=== PATIENT | male | born 1950 | race Caucasian/White ===

== ENCOUNTER → 2020-11-18 13:40 | Outpatient (BNVA) | payer MEDICARE, SELFPAY | PROVIDERS: PCP Internal Medicine; Visit Provider Internal Medicine Cardiovascular Disease | DX: I48.0 Paroxysmal atrial fibrillation (principal); I10 Essential (primary) hypertension | CPT/HCPCS: Q3014 ==

== ENCOUNTER 2021-02-04 15:43 | Outpatient (REF) | payer MEDICARE, SELFPAY ==
[2021-02-04 16:42] LABS: MANUAL DIFF FLAG NO
[2021-02-04 16:51] LABS: Basophils Percent Auto 0.3 % (0-2); Eosinophils Percent Auto 0.5 % (0-4); Hematocrit 44.9 % (42-52); Hemoglobin 15.6 g/dl (14.0-18.0); Imm Gran Abs Auto 0.08 X10*3/uL (0.00-0.03); Lymphocytes Absolute Auto 0.8 X10*3/uL (1.2-4.9); Lymphocytes Percent Auto 9.9 % (20-40); Mean Corpuscular HGB Conc 34.7 g/dl (31.0-36.0); Mean Corpuscular Hemoglobin 33.1 pg (27.0-33.0); Mean Corpuscular Volume 95.3 fL (80-98); Mean Platelet Volume 10.2 fL (9.4-12.4); Monocytes Percent Auto 12.3 % (2-11); Platelet Count 215 X10*3/uL (160-400); Red Blood Count 4.71 X10*6/uL (4.60-5.80); Red Cell Distribution Width 12.6 % (11.0-16.0); White Blood Count 7.9 X10*3/uL (4.8-10.8)
[2021-02-04 17:19] LABS: Alanine Aminotransferase 10 U/L (0-40); Albumin Level 3.9 g/dL (3.5-5.0); Alkaline Phosphatase 101 U/L (39-117); Anion Gap 14 (12-20); Aspartate Amino Transferase 13 U/L (5-37); Bilirubin Total 1.3 mg/dL (0.0-1.0); Blood Urea Nitrogen 24 mg/dL (9-16); Calcium 9.4 mg/dL (8.4-10.2); Carbon Dioxide 23 mmol/L (22-29); Chloride 98 mmol/L (96-108); Cholesterol 98 mg/dL; Estimated Glomerular Filt Rate > 60; Glucose Random 118 mg/dL (60-115); HDL Cholesterol 32 mg/dL; LDL Cholesterol Calculated 47 mg/dl; Potassium 4.1 mmol/L (3.3-5.1); Sodium 131 mmol/L (135-145); Total Protein 6.8 g/dL (6.5-8.0); Triglycerides 95 mg/dL
[2021-02-04 17:33] LABS: T4 Thyroxine 5.6 ug/dL (4.5-12.0); Thyroid Stimulating Hormone 1.11 uIU/mL (0.32-4.0); Vitamin D 25-OH Total 14.9 ng/mL (>30)
[2021-02-04 17:45] LABS: Folate 14.5 ng/mL (> or = 4.0); Vitamin B12 471 pg/mL (200-900)
== END 2021-02-04 15:44 | disposition home or self-care (01) ==
LOC: HO.LAB 15:43
PROVIDERS: PCP Internal Medicine; Visit Provider Internal Medicine
DX: E11.65 Type 2 diabetes mellitus with hyperglycemia (principal); I10 Essential (primary) hypertension; I48.91 Unspecified atrial fibrillation; E78.00 Pure hypercholesterolemia, unspecified; E66.3 Overweight; Z72.0 Tobacco use
CPT/HCPCS: 36415; 80053; 80061; 82306; 82607; 82746; 84436; 84443; 85025

== ENCOUNTER 2021-04-23 14:19 | Emergency (ER) | payer MEDICARE, SELFPAY ==
[2021-04-23] VITALS (14 sets, daily range): BP systolic 114–148; BP diastolic 76–105; PULSE 85–140; RESP 20–36; TEMP 36.5–36.7; O2SAT 70–100; BMI 23.9
--- NOTE | ~2021-04-23 | CT_ITS ---
EXAMINATION: CT HEAD WITHOUT CONTRAST CLINICAL INFORMATION: Frequent falls, weakness. COMPARISON: CT head noncontrast 12/01/2011 TECHNIQUE: Contiguous axial imaging was performed from the skull base to vertex without intravenous administration of contrast. Additional 2-D coronal and sagittal reformatted images are generated on the CT workstation and uploaded to PACS. This CT examination was performed using dose optimization techniques as appropriate, variously including the following: *Automated exposure control *Adjustment of mA and/or kV according to patient size (this includes techniques or standardized protocols for targeted exams where dose is matched to indication/reason for exam; i.e. extremities or head) *Use of iterative reconstruction technique DLP: 661 mGy-cm FINDINGS: There is no intracranial hemorrhage, hematoma, or extra-axial fluid collection. The ventricles are normal in size. There is no hydrocephalus, edema, or mass effect. There is moderate periventricular white matter gliosis consistent with small vessel ischemic changes. There is moderate generalized atrophic changes with prominence of the cortical sulci and fissures and cisterns. There is no visible acute territorial infarct or mass lesion. The calvarium appears intact. There is no pneumocephalus or orbital emphysema. The visualized sinuses and middle ears and mastoid air cells show no significant mucosal thickening. There are no air-fluid levels. CT/CT head/brain wo con IMPRESSION: 1. No acute intracranial abnormality. 2. Moderate generalized atrophic changes and periventricular white matter gliosis consistent with small vessel ischemic change.
--- NOTE | ~2021-04-23 | XR_ITS ---
EXAMINATION: XR CHEST CLINICAL INFORMATION: SOB. COMPARISON: None TECHNIQUE: Frontal view of the chest was obtained. FINDINGS: There is moderate opacity seen in left lung base from underlying left pleural effusion and atelectasis. There is minimal left apical pleural thickening. Linear stranding is seen in left upper lobe likely chronic scarring. The right lung is expanded and clear. Heart size is probably normal. Pulmonary vascularity is normal. Moderate spondylosis seen in dorsal spine. XR/XR chest 1V IMPRESSION: Moderate opacity seen in left lung base likely effusion with underlying atelectasis. Minimal left apical pleural thickening seen. There is likely left upper lobe scarring as well. The right lung remains clear.
--- NOTE | ~2021-04-23 | CT_ITS ---
EXAMINATION: CT CHEST WITHOUT CONTRAST CLINICAL INFORMATION: Shortness of breath. Lung opacity. COMPARISON: Chest x-ray 04/23/2021 TECHNIQUE: Multidetector volumetric CT imaging of the chest was done. Axial MIP volume rendering provided. Sagittal and coronal reformatted images were obtained. This CT examination was performed using dose optimization techniques as appropriate, variously including the following: *Automated exposure control *Adjustment of mA and/or kV according to patient size (this includes techniques or standardized protocols for targeted exams where dose is matched to indication/reason for exam; i.e. extremities or head) *Use of iterative reconstruction technique DLP: 300 mGy-cm FINDINGS: LUNGS: There is atelectasis/consolidation at the left lung base with overall decreased on the left hemithorax compared to the right. There is a coarse calcification associated with the atelectatic segment of the left lower lobe. Swirling of bronchi suggesting rounded atelectasis. The right lung is normally aerated. The central bronchial airways are open. Lung nodules: Right lun. Right upper lobe irregular 6 mm lung nodule axial image 110/621 series 9 MEDIASTINUM: No mediastinal mass or significant lymphadenopathy. The heart size is normal. Moderate volume of coronary calcifications. Moderate volume of calcifications of the thoracic aorta. No aneurysm of aorta. The thyroid is normal. PLEURA: There is a large volume left pleural effusion. There is no right-sided pleural effusion. There is no pneumothorax. AXILLA: No lymphadenopathy. UPPER ABDOMEN: Multiple cysts in the right kidney. There is a 1 mm nonobstructive stone in the upper pole the right kidney. The kidneys are only partially imaged however. No focal lesions in the visualized portions of liver, spleen or the adrenal glands. OSSEOUS STRUCTURES: Multilevel degenerative spondylosis spine. CT/CT chest wo con IMPRESSION: 1. Atelectasis/consolidation at the left lung base. 2. Large volume right pleural effusion. 3. 6 mm irregular nodule right upper lobe. Consider follow-up CAT scan in 6 months. 2017 Fleischner Society Recommendations for Lung Nodule(s): Follow-Up based on size (average of long- and short-axis diameters). Use most suspicious nodule for followup. Single Solid lung nodule 6-8 mm: In a low-risk patient, recommend a non-contrast Chest CT at 6-12 months, then consider an additional non-contrast Chest CT at 18-24 months. In a high-risk patient, recommend a non-contrast Chest CT at 6-12 months, then another non-contrast Chest CT at 18-24 months. These guidelines do not apply to patients younger than 35 years, immunocompromised patients, and patients with cancer. F/u in patients with significant comorbidities as clinically warranted. For lung cancer screening, adhere to Lung-RADS guidelines. Reference: Radiology. 2017 Az; 284(1):228-243
--- NOTE | 2021-04-23 14:50 | ECG_ITS ---
Test Reason : FALL Blood Pressure : / mmHG Vent. Rate : 130 BPM Atrial Rate : 468 BPM P-R Int : 000 ms QRS Dur : 078 ms QT Int : 286 ms P-R-T Axes : 000 017 220 degrees QTc Int : 420 ms Atrial fibrillation with rapid ventricular response Nonspecific T wave changes Abnormal ECG When compared with ECG of 02-DEC-2011 19:33, ST no longer depressed in Anterior leads Nonspecific T wave abnormality now evident in Lateral leads Referred By: Ally Avendano Electronically Signed By:Jose Luis Bates
--- NOTE | 2021-04-23 15:10 | PHA.MEDREC ---
Pharmacy Consult ? Medication Reconciliation Pharmacy has completed the medication reconciliation.
--- NOTE | 2021-04-23 15:35 | ED.GENADULT ---
HPI - General Adult General Chief complaint: Fall <NIRMAL Valdez - Last Filed: 04/23/21 21:43> Stated complaint: WEAKNESS W/ FALL <NIRMAL Valdez - Last Filed: 04/23/21 21:43> Time Seen by Provider: 04/23/21 14:39 <NIRMAL Valdez - Last Filed: 04/23/21 21:43> Source: patient and EMS <NIRMAL Valdez - Last Filed: 04/23/21 21:43> Mode of arrival: EMS <NIRMAL Valdez - Last Filed: 04/23/21 21:43> History of Present Illness HPI narrative: 70-year-old male with past medical history of ETOH abuse, AFib on Xarelto, diverticulitis, diabetes, HLD, HTN, BIBA c/o productive cough of green phlegm and exertional SOB x2-3 weeks with about 6 falls at home from SOB and LE weakness. Reports intermittent heart palpitations. Denies hitting head or LOC during falls. Denies CP, abdominal pain, nausea/vomiting, LE edema, fever Per EMS patient Per EMS patient was found to be satting in the 70s on their arrival, also has been refusing to come to hospital until today <NIRMAL Valdez - Last Filed: 04/23/21 21:43> Onset (ago): week(s) <NIRMAL Valdez - Last Filed: 04/23/21 21:43> Related Data Home medications: Home Medications Medication Instructions Recorded Confirmed metformin 1,000 mg tablet 1,000 mg PO BIDWM 11/04/20 04/23/21 metoprolol succinate 100 mg 100 mg PO DAILY 11/04/20 04/23/21 tablet,extended release 24 hr rivaroxaban 20 mg tablet 20 mg PO DAILY 11/04/20 04/23/21 Previous Rx's Medication Instructions Recorded atorvastatin 10 mg tablet 10 mg PO DAILY #90 tab 08/15/20 diltiazem HCl 300 mg 300 mg PO DAILY #90 cap 08/15/20 capsule,extended release 24 hr tramadol 50 mg tablet 50 mg PO QID PRN 90 Days #360 tab 02/05/21 sitagliptin 100 mg tablet 100 mg PO DAILY #90 tab 05/17/21 <NIRMAL Valdez - Last Filed: 04/23/21 21:43> Allergies/adverse reactions: Allergies Allergy/AdvReac Type Severity Reaction Status Date / Time No Known Allergies Allergy Unverified 07/18/20 14:47 Morphine Sulfate Allergy Unknown nausea and Uncoded 11/04/11 00:00 vomiting <NIRMAL Valdez - Last Filed: 04/23/21 21:43> Review of Systems Review of Systems: Constitutional: No Fever, No Chills, No Fatigue, No Malaise ENT/Mouth: No sore throat, No Rhinorrhea, No Swallowing Difficulty Eyes: No Eye Pain, No Vision Changes Cardiovascular: No Chest Pain, + SOB, +Dyspnea on Exertion, No Orthopnea, No Edema, + Palpitations Respiratory: + Cough, + Sputum, No Wheezing, + Dyspnea Gastrointestinal: No Nausea, No Vomiting, No Diarrhea, +No Abdominal pain Genitourinary: No Dysuria, No Flank Pain, No Hesitancy Musculoskeletal: No joint pain, No Myalgias, No Joint Swelling Skin: No Skin Lesions, No rash Neuro: + Weakness, No Numbness, No Paresthesias, No Loss of Consciousness, No Dizziness, No Headache <NIRMAL Valdez - Last Filed: 04/23/21 21:43> Yes all other systems are reviewed and are negative <NIRMAL Valdez Last Filed: 04/23/21 21:43> Neurologic: Denies Abnormal speech present <NIRMAL Valdez - Last Filed: 04/23/21 21:43> FORMERLY [facility], [facility]–1983 Past Medical History Attestation statement: The following information was validated with the patient. <NIRMAL Valdez - Last Filed: 04/23/21 21:43> Medical History: Medical History (Updated 05/14/21 @ 17:13 by Willa Rubin MD) Alcohol abuse Atrial fibrillation BPH (benign prostatic hyperplasia) Diabetic nephropathy Diverticulitis Hypercholesterolemia Hypertension Macrocytosis without anemia Osteoarthritis Overweight (BMI 25.0-29.9) Peripheral vascular disease Sepsis Tobacco abuse Type 2 diabetes mellitus with hyperglycemia Vitamin D deficiency <NIRMAL Valdez - Last Filed: 04/23/21 21:43> Surgical History: Surgical History (Updated 10/23/20 @ 09:51 by ALVIN Ledesma) Colostomy status History of appendectomy History of colonoscopy History of hip replacement History of laparotomy History of surgery Status post Bret procedure <NIRMAL Valdez - Last Filed: 04/23/21 21:43> Family History Family History: Family History (Updated 10/23/20 @ 09:52 by Darlin Ravi [facility]) Father Cancer of back Son In good health <NIRMAL Valdez - Last Filed: 04/23/21 21:43> Social History Social History: Social History (Updated 02/05/21 @ 10:28 by Griselda Lassiter [facility]) Alcohol intake: never Patient Tobacco Use Status: Former Tobacco user Cigarette Packs Per Day: 0.5 <NIRMAL Valdez - Last Filed: 04/23/21 21:43> Physical Exam Vital Signs: Vital Signs: Last Vital Signs Temp 98.0 F 04/23/21 23:00 Pulse 111 H 04/23/21 23:00 Resp 04/23/21 23:00 BP 128/94 H 04/23/21 23:00 Pulse Ox 95 04/23/21 23:00 Body Mass Index 23.9 <NIRMAL Valdez - Last Filed: 04/23/21 21:43> Vital Signs: Last Vital Signs Temp 98.0 F 04/23/21 23:00 Pulse 111 H 04/23/21 23:00 Resp 04/23/21 23:00 BP 128/94 H 04/23/21 23:00 Pulse Ox 95 04/23/21 23:00 Body Mass Index 23.9 <Miko Grider MD - Last Filed: 05/26/21 20:29> Const: General: cooperative <NIRMAL Valdez - Last Filed: 04/23/21 21:43> Orientation/consciousness: patient oriented x3 <NIRMAL Valdez - Last Filed: 04/23/21 21:43> Limitations: no limitations <NIRMAL Valdez - Last Filed: 04/23/21 21:43> HENMT: Head: Yes normal to inspection <NIRMAL Valdez - Last Filed: 04/23/21 21:43> Ears: hearing grossly normal bilaterally <NIRMAL Valdez - Last Filed: 04/23/21 21:43> General nose exam: Normal external nose present <NIRMAL Valdez - Last Filed: 04/23/21 21:43> Face and sinus: Yes normal facial exam <Ally Avendano MO - Last Filed: 04/23/21 21:43> Eyes: General: appearance normal, both eyes and all related structures <Ally Avendano PA - Last Filed: 04/23/21 21:43> EOM: EOMs intact bilaterally <Ally Avendano MO - Last Filed: 04/23/21 21:43> Neck: Neck: Yes normal visual inspection <Ally Avendano MO - Last Filed: 04/23/21 21:43> Resp: Effort & Inspection: tachypneic <Ally Avendano MO - Last Filed: 04/23/21 21:43> Auscultation: no rales, no wheezes and diminished lung sounds on the left in the lower lung reed <Ally Avendano MO - Last Filed: 04/23/21 21:43> Cardio: Rate: regular rate and tachycardic <Ally Avendano MO - Last Filed: 04/23/21 21:43> Rhythm: abnormal rhythm <Ally Avendano MO - Last Filed: 04/23/21 21:43> GI: Inspection: Yes normal to inspection <Ally Avendano MO - Last Filed: 04/23/21 21:43> Palpation (GI): Soft to palpation, nontender, no guarding and not rigid <Ally Avendano MO - Last Filed: 04/23/21 21:43> Skin: Other: Chronic PVD skin changes. Likely Raynaud's, nose/fingers/toes discolored <Ally Avendano MO - Last Filed: 04/23/21 21:43> Rashes: no rashes <Ally Avendano MO - Last Filed: 04/23/21 21:43> Neuro: General: patient oriented x3, tone normal, moves all extremities, no focal motor deficits and CN's II-XI intact bilaterally <Ally Avendano PA - Last Filed: 04/23/21 21:43> Cranial nerves: Yes CN's II-XII intact bilaterally <Ally Avendano PA - Last Filed: 04/23/21 21:43> Cognition (Neuro): normal cognition <NIRMAL Valdez - Last Filed: 04/23/21 21:43> Speech: No Abnormal speech present <NIRMAL Valdez - Last Filed: 04/23/21 21:43> Motor exam (neuro): no tremor noted <NIRMAL Valdez - Last Filed: 04/23/21 21:43> Coordination: [id number] test normal <NIRMAL Valdez - Last Filed: 04/23/21 21:43> Extrem: General: Yes normal to inspection and Yes no pedal edema <NIRMAL Valdez - Last Filed: 04/23/21 21:43> Course Course Course Narrative: Empiric IV Ceftriaxone ordered upon arrival XR chest 1V IMPRESSION: Moderate opacity seen in left lung base likely effusion with underlying atelectasis. Minimal left apical pleural thickening seen. There is likely left upper lobe scarring as well. The right lung remains clear. CT head/brain wo con IMPRESSION: 1. No acute intracranial abnormality. 2. Moderate generalized atrophic changes and periventricular white matter gliosis consistent with small vessel ischemic change. - 20 mg IV Cardizem given, patient's heart rate now 80-90 - no leukocytosis, hyponatremic at baseline, bilirubin is mildly elevated, troponin 6.1 > will obtain 3 hour repeat, BNP 299 - COVID-19/influenza/RSV negative -1848-- HR ranging 102-114 >> additional 5mg IV Cardizem ordered secondary to BP 1858--CT chest wo con IMPRESSION: 1. Atelectasis/consolidation at the left lung base. 2. Large volume left pleural effusion. 3. 6 mm irregular nodule right upper lobe. Consider follow-up CAT scan in 6 months. >> IV Azithromycin added > plan to admit for further management. Case discussed with hospitalist who accepted patient however will consult IR or thoracic surgery. -2014--spoke to thoracic surgery PA, do not have thoracic coverage until Wednesday, will need to transfer for further management/thoracentesis - spoke to thoracic surgery at [facility], who will consult on patient, then spoke to hospitalist Yolanda who accepted transfer. Accepting physician Dr. Aguilar <NIRMAL Valdez - Last Filed: 04/23/21 21:43> I have reviewed the chart <Miko Grider MD - Last Filed: 05/26/21 20:29> Medical Decision Making MDM Narrative Medical decision making narrative: 70-year-old male with past medical history of ETOH abuse, AFib on Xarelto, diverticulitis, DM, HLD, HTN, BIBA c/o productive cough of green phlegm and exertional SOB x2-3 weeks with about 6 falls at home from SOB and LE weakness. Reports intermittent heart palpitations. On arrival patient initially hypertensive, tachycardic in AFib with RVR, tachypneic, difficult to obtain O2 saturation due to cold extremities, decreased lung sounds in left lung base, no focal neuro deficits. Concern for pneumonia vs pleural effusion vs ACS vs metabolic or other infectious etiology. No concern for PE as patient is anticoagulated. R/o CHF Plan: EKG, labs, UA, head CT, CXR, orthostatics, DuoNeb, reassess Low concern for severe sepsis, patient's abnormal vital signs likely from rapid AFib <NIRMAL Valdez - Last Filed: 04/23/21 21:43> Lab Data Result diagrams: : 04/23/21 15:36 04/23/21 15:36 <NIRMAL Valdez - Last Filed: 04/23/21 21:43> Labs: Lab Results 04/23/21 04/23/21 04/23/21 Range/Units 15:36 15:36 15:36 WBC 9.8 (4.8-10.8) X10*3/uL RBC 5.02 (4.60-5.80) X10*6/uL Hgb 16.0 (14.0-18.0) g/dl Hct 46.8 (42-52) % MCV 93.2 (80-98) fL MCH 31.9 (27.0-33.0) pg MCHC 34.2 (31.0-36.0) g/dl RDW 12.5 (11.0-16.0) % Plt Count 172 (160-400) X10*3/uL MPV 10.5 (9.4-12.4) fL Immature Gran % (Auto) 0.8 H (0.0-0.4) % Neut % (Auto) 86.4 H (45-73) % Lymph % (Auto) 3.4 L (20-40) % Stan[place] % (Auto) 9.3 (2-11) % Eos % (Auto) 0.0 (0-4) % Baso % (Auto) 0.1 (0-2) % Lymph # (Auto) 0.3 L (1.2-4.9) X10*3/uL Stan[place] # (Auto) 0.9 (0.1-1.2) X10*3/uL Eos # (Auto) 0.0 (0.0-0.4) X10*3/uL Baso # (Auto) 0.0 (0.0-0.2) X10*3/uL Abs Immat Gran (auto) 0.08 H (0.00-0.03) X10*3/uL Absolute Neuts (auto) 8.4 H (2.0-8.3) X10*3/uL Absolute Nucleated RBC 0.000 (0.0-0.012) X10*3/uL Nucleated RBC % (auto) 0.0 (0.0-0.2) /100WBC Smear Tech's Comments VERIFIED PT 21.4 H (10.8-13.0) SEC INR 1.8 H (0.9-1.1) APTT 31.2 (24.1-38.0) SEC Sodium 129 L (135-145) mmol/L Potassium 4.3 (3.3-5.1) mmol/L Chloride 95 L (96-108) mmol/L Carbon Dioxide 20 L (22-29) mmol/L Anion Gap 18 (12-20) BUN 19 H (9-16) mg/dL Creatinine 1.13 (0.5-1.4) mg/dL Estim Creat Clear Calc 65.8 Estimated GFR > 60 Random Glucose 166 H D (60-115) mg/dL Lactic Acid (0.5-2.0) mmol/L Calcium 9.7 (8.4-10.2) mg/dL Magnesium 2.1 (1.6-2.6) mg/dL Total Bilirubin 2.3 H (0.0-1.0) mg/dL Direct Bilirubin 1.4 H (0.0-0.5) mg/dL AST 11 (5-37) U/L ALT < 6 (0-40) U/L Alkaline Phosphatase 113 (39-117) U/L Troponin I High Sens (<3.5-35.0) ng/L B-Natriuretic Peptide (<100) pg/mL Total Protein 6.7 (6.5-8.0) g/dL Albumin 3.5 (3.5-5.0) g/dL Urine Color Urine Appearance Urine pH (5.0-8.0) Ur Specific [place] (1.005-1.025) Urine Protein (NEG-TRACE) MG/DL Urine Glucose (UA) (NEG) MG/DL Urine Ketones (NEG) MG/DL Urine Blood (NEG) Urine Nitrite (NEG) Ur Leukocyte Esterase (NEG) Urine RBC (0) /HPF Urine WBC (0-4) /HPF Ur Squamous Epith Cells /LPF Urine Bacteria /LPF Urine Opiates Screen (Not Detect) Ur Barbiturates Screen (Not Detect) Ur Phencyclidine Scrn (Not Detect) Ur Amphetamines Screen (Not Detect) U Benzodiazepines Scrn (Not Detect) Urine Cocaine Screen (Not Detect) U Marijuana (THC) Screen (Not Detect) Ethyl Alcohol mg/dL Coronavirus (PCR) (Negative) Influenza Type A (PCR) (Negative) Influenza Type B (PCR) (Negative) RSV RNA Qual (PCR) (Negative) 04/23/21 04/23/21 04/23/21 Range/Units 15:36 15:36 15:36 WBC (4.8-10.8) X10*3/uL RBC (4.60-5.80) X10*6/uL Hgb (14.0-18.0) g/dl Hct (42-52) % MCV (80-98) fL MCH (27.0-33.0) pg MCHC (31.0-36.0) g/dl RDW (11.0-16.0) % Plt Count (160-400) X10*3/uL MPV (9.4-12.4) fL Immature Gran % (Auto) (0.0-0.4) % Neut % (Auto) (45-73) % Lymph % (Auto) (20-40) % Stan[place] % (Auto) (2-11) % Eos % (Auto) (0-4) % Baso % (Auto) (0-2) % Lymph # (Auto) (1.2-4.9) X10*3/uL Stan[place] # (Auto) (0.1-1.2) X10*3/uL Eos # (Auto) (0.0-0.4) X10*3/uL Baso # (Auto) (0.0-0.2) X10*3/uL Abs Immat Gran (auto) (0.00-0.03) X10*3/uL Absolute Neuts (auto) (2.0-8.3) X10*3/uL Absolute Nucleated RBC (0.0-0.012) X10*3/uL Nucleated RBC % (auto) (0.0-0.2) /100WBC Smear Tech's Comments PT (10.8-13.0) SEC INR (0.9-1.1) APTT (24.1-38.0) SEC Sodium (135-145) mmol/L Potassium (3.3-5.1) mmol/L Chloride (96-108) mmol/L Carbon Dioxide (22-29) mmol/L Anion Gap (12-20) BUN (9-16) mg/dL Creatinine (0.5-1.4) mg/dL Estim Creat Clear Calc Estimated GFR Random Glucose (60-115) mg/dL Lactic Acid 1.8 (0.5-2.0) mmol/L Calcium (8.4-10.2) mg/dL Magnesium (1.6-2.6) mg/dL Total Bilirubin (0.0-1.0) mg/dL Direct Bilirubin (0.0-0.5) mg/dL AST (5-37) U/L ALT (0-40) U/L Alkaline Phosphatase (39-117) U/L Troponin I High Sens 6.1 (<3.5-35.0) ng/L B-Natriuretic Peptide (<100) pg/mL Total Protein (6.5-8.0) g/dL Albumin (3.5-5.0) g/dL Urine Color Urine Appearance Urine pH (5.0-8.0) Ur Specific [place] (1.005-1.025) Urine Protein (NEG-TRACE) MG/DL Urine Glucose (UA) (NEG) MG/DL Urine Ketones (NEG) MG/DL Urine Blood (NEG) Urine Nitrite (NEG) Ur Leukocyte Esterase (NEG) Urine RBC (0) /HPF Urine WBC (0-4) /HPF Ur Squamous Epith Cells /LPF Urine Bacteria /LPF Urine Opiates Screen (Not Detect) Ur Barbiturates Screen (Not Detect) Ur Phencyclidine Scrn (Not Detect) Ur Amphetamines Screen (Not Detect) U Benzodiazepines Scrn (Not Detect) Urine Cocaine Screen (Not Detect) U Marijuana (THC) Screen (Not Detect) Ethyl Alcohol < 10 mg/dL Coronavirus (PCR) (Negative) Influenza Type A (PCR) (Negative) Influenza Type B (PCR) (Negative) RSV RNA Qual (PCR) (Negative) 04/23/21 04/23/21 04/23/21 Range/Units 15:36 15:36 18:36 WBC (4.8-10.8) X10*3/uL RBC (4.60-5.80) X10*6/uL Hgb (14.0-18.0) g/dl Hct (42-52) % MCV (80-98) fL MCH (27.0-33.0) pg MCHC (31.0-36.0) g/dl RDW (11.0-16.0) % Plt Count (160-400) X10*3/uL MPV (9.4-12.4) fL Immature Gran % (Auto) (0.0-0.4) % Neut % (Auto) (45-73) % Lymph % (Auto) (20-40) % [place] % (Auto) (2-11) % Eos % (Auto) (0-4) % Baso % (Auto) (0-2) % Lymph # (Auto) (1.2-4.9) X10*3/uL Stan[place] # (Auto) (0.1-1.2) X10*3/uL Eos # (Auto) (0.0-0.4) X10*3/uL Baso # (Auto) (0.0-0.2) X10*3/uL Abs Immat Gran (auto) (0.00-0.03) X10*3/uL Absolute Neuts (auto) (2.0-8.3) X10*3/uL Absolute Nucleated RBC (0.0-0.012) X10*3/uL Nucleated RBC % (auto) (0.0-0.2) /100WBC Smear Tech's Comments PT (10.8-13.0) SEC INR (0.9-1.1) APTT (24.1-38.0) SEC Sodium (135-145) mmol/L Potassium (3.3-5.1) mmol/L Chloride (96-108) mmol/L Carbon Dioxide (22-29) mmol/L Anion Gap (12-20) BUN (9-16) mg/dL Creatinine (0.5-1.4) mg/dL Estim Creat Clear Calc Estimated GFR Random Glucose (60-115) mg/dL Lactic Acid (0.5-2.0) mmol/L Calcium (8.4-10.2) mg/dL Magnesium (1.6-2.6) mg/dL Total Bilirubin (0.0-1.0) mg/dL Direct Bilirubin (0.0-0.5) mg/dL AST (5-37) U/L ALT (0-40) U/L Alkaline Phosphatase (39-117) U/L Troponin I High Sens 6.1 (<3.5-35.0) ng/L B-Natriuretic Peptide 299 H (<100) pg/mL Total Protein (6.5-8.0) g/dL Albumin (3.5-5.0) g/dL Urine Color Urine Appearance Urine pH (5.0-8.0) Ur Specific [place] (1.005-1.025) Urine Protein (NEG-TRACE) MG/DL Urine Glucose (UA) (NEG) MG/DL Urine Ketones (NEG) MG/DL Urine Blood (NEG) Urine Nitrite (NEG) Ur Leukocyte Esterase (NEG) Urine RBC (0) /HPF Urine WBC (0-4) /HPF Ur Squamous Epith Cells /LPF Urine Bacteria /LPF Urine Opiates Screen (Not Detect) Ur Barbiturates Screen (Not Detect) Ur Phencyclidine Scrn (Not Detect) Ur Amphetamines Screen (Not Detect) U Benzodiazepines Scrn (Not Detect) Urine Cocaine Screen (Not Detect) U Marijuana (THC) Screen (Not Detect) Ethyl Alcohol mg/dL Coronavirus (PCR) NEGATIVE (Negative) Influenza Type A (PCR) NEGATIVE (Negative) Influenza Type B (PCR) NEGATIVE (Negative) RSV RNA Qual (PCR) NEGATIVE (Negative) 04/23/21 04/23/21 Range/Units 21:28 21:28 WBC (4.8-10.8) X10*3/uL RBC (4.60-5.80) X10*6/uL Hgb (14.0-18.0) g/dl Hct (42-52) % MCV (80-98) fL MCH (27.0-33.0) pg MCHC (31.0-36.0) g/dl RDW (11.0-16.0) % Plt Count (160-400) X10*3/uL MPV (9.4-12.4) fL Immature Gran % (Auto) (0.0-0.4) % Neut % (Auto) (45-73) % Lymph % (Auto) (20-40) % Stan[place] % (Auto) (2-11) % Eos % (Auto) (0-4) % Baso % (Auto) (0-2) % Lymph # (Auto) (1.2-4.9) X10*3/uL Stan[place] # (Auto) (0.1-1.2) X10*3/uL Eos # (Auto) (0.0-0.4) X10*3/uL Baso # (Auto) (0.0-0.2) X10*3/uL Abs Immat Gran (auto) (0.00-0.03) X10*3/uL Absolute Neuts (auto) (2.0-8.3) X10*3/uL Absolute Nucleated RBC (0.0-0.012) X10*3/uL Nucleated RBC % (auto) (0.0-0.2) /100WBC Smear Tech's Comments PT (10.8-13.0) SEC INR (0.9-1.1) APTT (24.1-38.0) SEC Sodium (135-145) mmol/L Potassium (3.3-5.1) mmol/L Chloride (96-108) mmol/L Carbon Dioxide (22-29) mmol/L Anion Gap (12-20) BUN (9-16) mg/dL Creatinine (0.5-1.4) mg/dL Estim Creat Clear Calc Estimated GFR Random Glucose (60-115) mg/dL Lactic Acid (0.5-2.0) mmol/L Calcium (8.4-10.2) mg/dL Magnesium (1.6-2.6) mg/dL Total Bilirubin (0.0-1.0) mg/dL Direct Bilirubin (0.0-0.5) mg/dL AST (5-37) U/L ALT (0-40) U/L Alkaline Phosphatase (39-117) U/L Troponin I High Sens (<3.5-35.0) ng/L B-Natriuretic Peptide (<100) pg/mL Total Protein (6.5-8.0) g/dL Albumin (3.5-5.0) g/dL Urine Color YELLOW Urine Appearance CLEAR Urine pH 6.0 (5.0-8.0) Ur Specific [place] 1.025 (1.005-1.025) Urine Protein TRACE (NEG-TRACE) MG/DL Urine Glucose (UA) NEG (NEG) MG/DL Urine Ketones 15 (NEG) MG/DL Urine Blood TRACE (NEG) Urine Nitrite NEG (NEG) Ur Leukocyte Esterase NEG (NEG) Urine RBC 0-2 (0) /HPF Urine WBC 0 (0-4) /HPF Ur Squamous Epith Cells 1+ /LPF Urine Bacteria 1+ /LPF Urine Opiates Screen Not Detected (Not Detect) Ur Barbiturates Screen Not Detected (Not Detect) Ur Phencyclidine Scrn Not Detected (Not Detect) Ur Amphetamines Screen Not Detected (Not Detect) U Benzodiazepines Scrn Not Detected (Not Detect) Urine Cocaine Screen Not Detected (Not Detect) U Marijuana (THC) Screen Not Detected (Not Detect) Ethyl Alcohol mg/dL Coronavirus (PCR) (Negative) Influenza Type A (PCR) (Negative) Influenza Type B (PCR) (Negative) RSV RNA Qual (PCR) (Negative) <NIRMAL Valdez - Last Filed: 04/23/21 21:43> Lab Results 04/23/21 04/23/21 04/23/21 Range/Units 15:36 15:36 15:36 WBC 9.8 (4.8-10.8) X10*3/uL RBC 5.02 (4.60-5.80) X10*6/uL Hgb 16.0 (14.0-18.0) g/dl Hct 46.8 (42-52) % MCV 93.2 (80-98) fL MCH 31.9 (27.0-33.0) pg MCHC 34.2 (31.0-36.0) g/dl RDW 12.5 (11.0-16.0) % Plt Count 172 (160-400) X10*3/uL MPV 10.5 (9.4-12.4) fL Immature Gran % (Auto) 0.8 H (0.0-0.4) % Neut % (Auto) 86.4 H (45-73) % Lymph % (Auto) 3.4 L (20-40) % [place] % (Auto) 9.3 (2-11) % Eos % (Auto) 0.0 (0-4) % Baso % (Auto) 0.1 (0-2) % Lymph # (Auto) 0.3 L (1.2-4.9) X10*3/uL [place] # (Auto) 0.9 (0.1-1.2) X10*3/uL Eos # (Auto) 0.0 (0.0-0.4) X10*3/uL Baso # (Auto) 0.0 (0.0-0.2) X10*3/uL Abs Immat Gran (auto) 0.08 H (0.00-0.03) X10*3/uL Absolute Neuts (auto) 8.4 H (2.0-8.3) X10*3/uL Absolute Nucleated RBC 0.000 (0.0-0.012) X10*3/uL Nucleated RBC % (auto) 0.0 (0.0-0.2) /100WBC Smear Tech's Comments VERIFIED PT 21.4 H (10.8-13.0) SEC INR 1.8 H (0.9-1.1) APTT 31.2 (24.1-38.0) SEC Sodium 129 L (135-145) mmol/L Potassium 4.3 (3.3-5.1) mmol/L Chloride 95 L (96-108) mmol/L Carbon Dioxide 20 L (22-29) mmol/L Anion Gap 18 (12-20) BUN 19 H (9-16) mg/dL Creatinine 1.13 (0.5-1.4) mg/dL Estim Creat Clear Calc 65.8 Estimated GFR > 60 Random Glucose 166 H D (60-115) mg/dL Lactic Acid (0.5-2.0) mmol/L Calcium 9.7 (8.4-10.2) mg/dL Magnesium 2.1 (1.6-2.6) mg/dL Total Bilirubin 2.3 H (0.0-1.0) mg/dL Direct Bilirubin 1.4 H (0.0-0.5) mg/dL AST 11 (5-37) U/L ALT < 6 (0-40) U/L Alkaline Phosphatase 113 (39-117) U/L Troponin I High Sens (<3.5-35.0) ng/L B-Natriuretic Peptide (<100) pg/mL Total Protein 6.7 (6.5-8.0) g/dL Albumin 3.5 (3.5-5.0) g/dL Urine Color Urine Appearance Urine pH (5.0-8.0) Ur Specific [place] (1.005-1.025) Urine Protein (NEG-TRACE) MG/DL Urine Glucose (UA) (NEG) MG/DL Urine Ketones (NEG) MG/DL Urine Blood (NEG) Urine Nitrite (NEG) Ur Leukocyte Esterase (NEG) Urine RBC (0) /HPF Urine WBC (0-4) /HPF Ur Squamous Epith Cells /LPF Urine Bacteria /LPF Urine Opiates Screen (Not Detect) Ur Barbiturates Screen (Not Detect) Ur Phencyclidine Scrn (Not Detect) Ur Amphetamines Screen (Not Detect) U Benzodiazepines Scrn (Not Detect) Urine Cocaine Screen (Not Detect) U Marijuana (THC) Screen (Not Detect) Ethyl Alcohol mg/dL Coronavirus (PCR) (Negative) Influenza Type A (PCR) (Negative) Influenza Type B (PCR) (Negative) RSV RNA Qual (PCR) (Negative) 04/23/21 04/23/21 04/23/21 Range/Units 15:36 15:36 15:36 WBC (4.8-10.8) X10*3/uL RBC (4.60-5.80) X10*6/uL Hgb (14.0-18.0) g/dl Hct (42-52) % MCV (80-98) fL MCH (27.0-33.0) pg MCHC (31.0-36.0) g/dl RDW (11.0-16.0) % Plt Count (160-400) X10*3/uL MPV (9.4-12.4) fL Immature Gran % (Auto) (0.0-0.4) % Neut % (Auto) (45-73) % Lymph % (Auto) (20-40) % [place] % (Auto) (2-11) % Eos % (Auto) (0-4) % Baso % (Auto) (0-2) % Lymph # (Auto) (1.2-4.9) X10*3/uL [place] # (Auto) (0.1-1.2) X10*3/uL Eos # (Auto) (0.0-0.4) X10*3/uL Baso # (Auto) (0.0-0.2) X10*3/uL Abs Immat Gran (auto) (0.00-0.03) X10*3/uL Absolute Neuts (auto) (2.0-8.3) X10*3/uL Absolute Nucleated RBC (0.0-0.012) X10*3/uL Nucleated RBC % (auto) (0.0-0.2) /100WBC Smear Tech's Comments PT (10.8-13.0) SEC INR (0.9-1.1) APTT (24.1-38.0) SEC Sodium (135-145) mmol/L Potassium (3.3-5.1) mmol/L Chloride (96-108) mmol/L Carbon Dioxide (22-29) mmol/L Anion Gap (12-20) BUN (9-16) mg/dL Creatinine (0.5-1.4) mg/dL Estim Creat Clear Calc Estimated GFR Random Glucose (60-115) mg/dL Lactic Acid 1.8 (0.5-2.0) mmol/L Calcium (8.4-10.2) mg/dL Magnesium (1.6-2.6) mg/dL Total Bilirubin (0.0-1.0) mg/dL Direct Bilirubin (0.0-0.5) mg/dL AST (5-37) U/L ALT (0-40) U/L Alkaline Phosphatase (39-117) U/L Troponin I High Sens 6.1 (<3.5-35.0) ng/L B-Natriuretic Peptide (<100) pg/mL Total Protein (6.5-8.0) g/dL Albumin (3.5-5.0) g/dL Urine Color Urine Appearance Urine pH (5.0-8.0) Ur Specific [place] (1.005-1.025) Urine Protein (NEG-TRACE) MG/DL Urine Glucose (UA) (NEG) MG/DL Urine Ketones (NEG) MG/DL Urine Blood (NEG) Urine Nitrite (NEG) Ur Leukocyte Esterase (NEG) Urine RBC (0) /HPF Urine WBC (0-4) /HPF Ur Squamous Epith Cells /LPF Urine Bacteria /LPF Urine Opiates Screen (Not Detect) Ur Barbiturates Screen (Not Detect) Ur Phencyclidine Scrn (Not Detect) Ur Amphetamines Screen (Not Detect) U Benzodiazepines Scrn (Not Detect) Urine Cocaine Screen (Not Detect) U Marijuana (THC) Screen (Not Detect) Ethyl Alcohol < 10 mg/dL Coronavirus (PCR) (Negative) Influenza Type A (PCR) (Negative) Influenza Type B (PCR) (Negative) RSV RNA Qual (PCR) (Negative) 04/23/21 04/23/21 04/23/21 Range/Units 15:36 15:36 18:36 WBC (4.8-10.8) X10*3/uL RBC (4.60-5.80) X10*6/uL Hgb (14.0-18.0) g/dl Hct (42-52) % MCV (80-98) fL MCH (27.0-33.0) pg MCHC (31.0-36.0) g/dl RDW (11.0-16.0) % Plt Count (160-400) X10*3/uL MPV (9.4-12.4) fL Immature Gran % (Auto) (0.0-0.4) % Neut % (Auto) (45-73) % Lymph % (Auto) (20-40) % [place] % (Auto) (2-11) % Eos % (Auto) (0-4) % Baso % (Auto) (0-2) % Lymph # (Auto) (1.2-4.9) X10*3/uL [place] # (Auto) (0.1-1.2) X10*3/uL Eos # (Auto) (0.0-0.4) X10*3/uL Baso # (Auto) (0.0-0.2) X10*3/uL Abs Immat Gran (auto) (0.00-0.03) X10*3/uL Absolute Neuts (auto) (2.0-8.3) X10*3/uL Absolute Nucleated RBC (0.0-0.012) X10*3/uL Nucleated RBC % (auto) (0.0-0.2) /100WBC Smear Tech's Comments PT (10.8-13.0) SEC INR (0.9-1.1) APTT (24.1-38.0) SEC Sodium (135-145) mmol/L Potassium (3.3-5.1) mmol/L Chloride (96-108) mmol/L Carbon Dioxide (22-29) mmol/L Anion Gap (12-20) BUN (9-16) mg/dL Creatinine (0.5-1.4) mg/dL Estim Creat Clear Calc Estimated GFR Random Glucose (60-115) mg/dL Lactic Acid (0.5-2.0) mmol/L Calcium (8.4-10.2) mg/dL Magnesium (1.6-2.6) mg/dL Total Bilirubin (0.0-1.0) mg/dL Direct Bilirubin (0.0-0.5) mg/dL AST (5-37) U/L ALT (0-40) U/L Alkaline Phosphatase (39-117) U/L Troponin I High Sens 6.1 (<3.5-35.0) ng/L B-Natriuretic Peptide 299 H (<100) pg/mL Total Protein (6.5-8.0) g/dL Albumin (3.5-5.0) g/dL Urine Color Urine Appearance Urine pH (5.0-8.0) Ur Specific [place] (1.005-1.025) Urine Protein (NEG-TRACE) MG/DL Urine Glucose (UA) (NEG) MG/DL Urine Ketones (NEG) MG/DL Urine Blood (NEG) Urine Nitrite (NEG) Ur Leukocyte Esterase (NEG) Urine RBC (0) /HPF Urine WBC (0-4) /HPF Ur Squamous Epith Cells /LPF Urine Bacteria /LPF Urine Opiates Screen (Not Detect) Ur Barbiturates Screen (Not Detect) Ur Phencyclidine Scrn (Not Detect) Ur Amphetamines Screen (Not Detect) U Benzodiazepines Scrn (Not Detect) Urine Cocaine Screen (Not Detect) U Marijuana (THC) Screen (Not Detect) Ethyl Alcohol mg/dL Coronavirus (PCR) NEGATIVE (Negative) Influenza Type A (PCR) NEGATIVE (Negative) Influenza Type B (PCR) NEGATIVE (Negative) RSV RNA Qual (PCR) NEGATIVE (Negative) 04/23/21 04/23/21 Range/Units 21:28 21:28 WBC (4.8-10.8) X10*3/uL RBC (4.60-5.80) X10*6/uL Hgb (14.0-18.0) g/dl Hct (42-52) % MCV (80-98) fL MCH (27.0-33.0) pg MCHC (31.0-36.0) g/dl RDW (11.0-16.0) % Plt Count (160-400) X10*3/uL MPV (9.4-12.4) fL Immature Gran % (Auto) (0.0-0.4) % Neut % (Auto) (45-73) % Lymph % (Auto) (20-40) % [place] % (Auto) (2-11) % Eos % (Auto) (0-4) % Baso % (Auto) (0-2) % Lymph # (Auto) (1.2-4.9) X10*3/uL [place] # (Auto) (0.1-1.2) X10*3/uL Eos # (Auto) (0.0-0.4) X10*3/uL Baso # (Auto) (0.0-0.2) X10*3/uL Abs Immat Gran (auto) (0.00-0.03) X10*3/uL Absolute Neuts (auto) (2.0-8.3) X10*3/uL Absolute Nucleated RBC (0.0-0.012) X10*3/uL Nucleated RBC % (auto) (0.0-0.2) /100WBC Smear Tech's Comments PT (10.8-13.0) SEC INR (0.9-1.1) APTT (24.1-38.0) SEC Sodium (135-145) mmol/L Potassium (3.3-5.1) mmol/L Chloride (96-108) mmol/L Carbon Dioxide (22-29) mmol/L Anion Gap (12-20) BUN (9-16) mg/dL Creatinine (0.5-1.4) mg/dL Estim Creat Clear Calc Estimated GFR Random Glucose (60-115) mg/dL Lactic Acid (0.5-2.0) mmol/L Calcium (8.4-10.2) mg/dL Magnesium (1.6-2.6) mg/dL Total Bilirubin (0.0-1.0) mg/dL Direct Bilirubin (0.0-0.5) mg/dL AST (5-37) U/L ALT (0-40) U/L Alkaline Phosphatase (39-117) U/L Troponin I High Sens (<3.5-35.0) ng/L B-Natriuretic Peptide (<100) pg/mL Total Protein (6.5-8.0) g/dL Albumin (3.5-5.0) g/dL Urine Color YELLOW Urine Appearance CLEAR Urine pH 6.0 (5.0-8.0) Ur Specific [place] 1.025 (1.005-1.025) Urine Protein TRACE (NEG-TRACE) MG/DL Urine Glucose (UA) NEG (NEG) MG/DL Urine Ketones 15 (NEG) MG/DL Urine Blood TRACE (NEG) Urine Nitrite NEG (NEG) Ur Leukocyte Esterase NEG (NEG) Urine RBC 0-2 (0) /HPF Urine WBC 0 (0-4) /HPF Ur Squamous Epith Cells 1+ /LPF Urine Bacteria 1+ /LPF Urine Opiates Screen Not Detected (Not Detect) Ur Barbiturates Screen Not Detected (Not Detect) Ur Phencyclidine Scrn Not Detected (Not Detect) Ur Amphetamines Screen Not Detected (Not Detect) U Benzodiazepines Scrn Not Detected (Not Detect) Urine Cocaine Screen Not Detected (Not Detect) U Marijuana (THC) Screen Not Detected (Not Detect) Ethyl Alcohol mg/dL Coronavirus (PCR) (Negative) Influenza Type A (PCR) (Negative) Influenza Type B (PCR) (Negative) RSV RNA Qual (PCR) (Negative) <Miko Grider MD - Last Filed: 05/26/21 20:29> ECG Data Attestation: I personally reviewed and interpreted this ECG as follows: <NIRMAL Valdez - Last Filed: 04/23/21 21:43> Interpretation: EKG showing AFib with RVR at a rate of 130, no STEMI/nonischemic <NIRMAL Valdez - Last Filed: 04/23/21 21:43> Discharge Plan Discharge Clinical Impression: Exertional dyspnea, Pleural effusion on left, Pneumonia, Atrial fibrillation with rapid ventricular response <NIRMAL Valdez - Last Filed: 04/23/21 21:43> Patient Disposition: [facility] <NIRMAL Valdez - Last Filed: 04/23/21 21:43> Transfer Details: [facility] accepting physician Dr. Aguilar <NIRMAL Valdez - Last Filed: 04/23/21 21:43> [facility] accepting physician Dr. Aguilar <Miko Grider MD - Last Filed: 05/26/21 20:29> Prescriptions: No Action atorvastatin 10 mg tablet 10 mg PO DAILY Qty: 90 RF: 3 diltiazem HCl 300 mg capsule,extended release 24hr 300 mg PO DAILY Qty: 90 RF: 3 sitagliptin [Januvia] 100 mg tablet 100 mg PO DAILY Qty: 90 RF: 2 metoprolol succinate 100 mg tablet extended release 24 hr 100 mg PO DAILY RF: 0 metformin 1,000 mg tablet 1,000 mg PO BIDWM RF: 0 Xarelto 20 mg tablet 20 mg PO DAILY RF: 0 tramadol 50 mg tablet 50 mg PO QID PRN (Reason: pain) 90 Days Qty: 360 RF: 1 <NIRMAL Valdez - Last Filed: 04/23/21 21:43> Interventions: Acute Care Transfer Worksheet (ED) Last Done: 04/24/21 00:30 <NIRMAL Valdez Last Filed: 04/23/21 21:43> Discharge Date/Time: 04/24/21 00:39 <NIRMAL Valdez - Last Filed: 04/23/21 21:43>
[2021-04-23 15:49] LABS: Basophils Percent Auto 0.1 % (0-2); Imm Gran Abs Auto 0.08 X10*3/uL (0.00-0.03); Imm Gran Pct Auto 0.8 % (0.0-0.4); MANUAL DIFF FLAG SCAN; Mean Corpuscular Volume 93.2 fL (80-98); Monocytes Percent Auto 9.3 % (2-11); PLT CLUMP 1; SCAN SMEAR FLAG 1
[2021-04-23 15:51] LABS: Hematocrit 46.8 % (42-52); Lymphocytes Absolute Auto 0.3 X10*3/uL (1.2-4.9); Lymphocytes Percent Auto 3.4 % (20-40); Mean Corpuscular HGB Conc 34.2 g/dl (31.0-36.0); Mean Corpuscular Hemoglobin 31.9 pg (27.0-33.0); Monocytes Absolute Auto 0.9 X10*3/uL (0.1-1.2); Neutrophils Absolute Auto 8.4 X10*3/uL (2.0-8.3); Neutrophils Percent Auto 86.4 % (45-73); Red Blood Count 5.02 X10*6/uL (4.60-5.80); Red Cell Distribution Width 12.5 % (11.0-16.0); White Blood Count 9.8 X10*3/uL (4.8-10.8)
[2021-04-23] MEDS: 0.9 % Sodium Chloride 1,000 ML 999 ML IVCONT (16:00)
[2021-04-23] MEDS: cefTRIAXone sodium 1 GM in 0.9 % Sodium Chloride 50 ML IV (16:01)
[2021-04-23 16:04] LABS: INTERNATIONAL NORM RATIO 1.8 (0.9-1.1); Prothrombin Time 21.4 SEC (10.8-13.0)
[2021-04-23 16:06] LABS: Partial Thromboplastin Time 31.2 SEC (24.1-38.0)
[2021-04-23 16:07] LABS: Lactic Acid 1.8 mmol/L (0.5-2.0)
[2021-04-23 16:09] LABS: Ethanol < 10 mg/dL
[2021-04-23] MEDS: dilTIAZem HCL 50 MG/10 ML VIAL 20 MG IVPUSH (16:09)
[2021-04-23 16:13] LABS: Mean Platelet Volume 10.5 fL (9.4-12.4); Platelet Count 172 X10*3/uL (160-400)
[2021-04-23 16:14] LABS: Alanine Aminotransferase < 6 U/L (0-40); Albumin Level 3.5 g/dL (3.5-5.0); Alkaline Phosphatase 113 U/L (39-117); Anion Gap 18 (12-20); Aspartate Amino Transferase 11 U/L (5-37); Bilirubin Direct 1.4 mg/dL (0.0-0.5); Bilirubin Total 2.3 mg/dL (0.0-1.0); Blood Urea Nitrogen 19 mg/dL (9-16); Calcium 9.7 mg/dL (8.4-10.2); Carbon Dioxide 20 mmol/L (22-29); Chloride 95 mmol/L (96-108); Creatinine Clr Calc Pharmacy 65.8; Estimated Glomerular Filt Rate > 60; Glucose Random 166 mg/dL (60-115); Magnesium 2.1 mg/dL (1.6-2.6); Potassium 4.3 mmol/L (3.3-5.1); SLIDE REVIEW VERIFIED; Sodium 129 mmol/L (135-145); Total Protein 6.7 g/dL (6.5-8.0)
[2021-04-23 16:15] LABS: B Type Natriuretic Peptide 299 pg/mL (<100); Troponin-I High Sensitivity 6.1 ng/L (<3.5-35.0)
[2021-04-23 16:23] LABS: Influenza A PCR NEGATIVE (Negative); Influenza B PCR NEGATIVE (Negative); Resp Syncy Virus RNA Qual PCR NEGATIVE (Negative); SARS COV2 PCR INHOUSE NEGATIVE (Negative)
--- NOTE | 2021-04-23 16:23 | PC.NURSE ---
Patient awake and alert. skin PWD, resp even and labored. Hands pale and cool, tip of left pinky is cyanotic. tips of fingers on right hand are all cyanotic. this RN just titrated O2from 2lpm to 1lpm via NC, oxygen level remains 100% uncontrolled afib via tele, HR 113-130's, medicated as ordered.
[2021-04-23] MEDS: Albuterol/Iprat 2.5/0.5MG 3 ML AMPUL.NEB INHALE (16:56)
[2021-04-23 19:09] LABS: Troponin-I High Sensitivity 6.1 ng/L (<3.5-35.0)
[2021-04-23] MEDS: dilTIAZem HCL 50 MG/10 ML VIAL IVPUSH (19:28)
[2021-04-23] MEDS: Azithromycin 500 MG in 0.9 % Sodium Chloride 250 ML 125 MG IV (19:28)
--- NOTE | 2021-04-23 19:39 | ECG_ITS ---
Test Reason : AFIB Blood Pressure : / mmHG Vent. Rate : 113 BPM Atrial Rate : 375 BPM P-R Int : 000 ms QRS Dur : 080 ms QT Int : 334 ms P-R-T Axes : 000 030 268 degrees QTc Int : 458 ms Atrial fibrillation with rapid ventricular response Low voltage QRS Septal infarct , age undetermined Abnormal ECG When compared with ECG of 23-APR-2021 15:14, No significant change was found Referred By: Ally Avendano Electronically Signed By:Jose Luis Bates
[2021-04-23 21:36] LABS: Glucose Urine UA NEG (NEG); Leukocyte Esterase Urine NEG (NEG); Nitrite Urine NEG (NEG); Specific Gravity - Urine 1.025 (1.005-1.025); Urine Blood TRACE (NEG); Urine Ketones 15 MG/DL (NEG); Urine Protein TRACE MG/DL (NEG-TRACE)
[2021-04-23 21:37] LABS: Appearance Urine CLEAR; Color Urine YELLOW
[2021-04-23 21:43] LABS: Bacteria Urine 1+ /LPF; RBC Urine 0-2 /HPF (0); Squamous Epithelial Cell Urine 1+ /LPF; WBC Urine 0 /HPF (0-4)
[2021-04-23 21:58] LABS: Amphetamine Screen Urine Not Detected (Not Detect); Barbiturates, Urine Not Detected (Not Detect); Benzodiazepines Screen Urine Not Detected (Not Detect); Cannabinoid Screen Urine Not Detected (Not Detect); Cocaine Screen Urine Not Detected (Not Detect); Opiate Screen Urine Not Detected (Not Detect); Phencyclidine Screen Urine Not Detected (Not Detect)
== END 2021-04-24 00:39 | disposition short-term general hospital (02) ==
PROVIDERS: Physician Assistant; Emergency Provider Emergency Medicine; PCP Internal Medicine
DX: J18.9 Pneumonia, unspecified organism (principal); J90 Pleural effusion, not elsewhere classified; R06.02 Shortness of breath; I48.91 Unspecified atrial fibrillation; E11.9 Type 2 diabetes mellitus without complications; I10 Essential (primary) hypertension; Z79.01 Long term (current) use of anticoagulants; Z79.84 Long term (current) use of oral hypoglycemic drugs; Z79.899 Other long term (current) drug therapy; Z91.81 History of falling; Z20.822 Contact with and (suspected) exposure to COVID-19
CPT/HCPCS: 0241U; 36415; 70450; 71045; 71250; 80048; 80076; 80307; 81001; 82077; 83605; 83735; 83880; 84484; 85025; 85610; 85730; 87040; 93005; 94640; 96361; 96365; 96366; 96367; 96375; 96376; 99285; J0456; J0696

== ENCOUNTER → 2021-05-29 10:10 | Outpatient (BNVA) | payer MEDICARE, SELFPAY | PROVIDERS: PCP Internal Medicine; Referring Provider Internal Medicine; Visit Provider Internal Medicine Cardiovascular Disease | DX: I48.0 Paroxysmal atrial fibrillation (principal); R06.02 Shortness of breath | CPT/HCPCS: 99212 ==

== ENCOUNTER 2021-06-11 10:19 | Outpatient (REF) | payer MEDICARE, SELFPAY ==
[2021-06-11 13:04] LABS: Glucose Urine UA NEG (NEG); Leukocyte Esterase Urine NEG (NEG); Nitrite Urine NEG (NEG); Specific Gravity - Urine 1.015 (1.005-1.025); UACC Culture Trigger NO; Urine Blood NEG (NEG); Urine Ketones NEG (NEG); Urine Protein 1+ MG/DL (NEG-TRACE)
[2021-06-11 13:05] LABS: Appearance Urine HAZY; Color Urine YELLOW
[2021-06-11 13:42] LABS: Calcium Oxalate Crystals Urine 3+ /LPF; Mucus Urine 1+ /LPF; RBC Urine 0 /HPF (0); Squamous Epithelial Cell Urine 1+ /LPF; WBC Urine 0 /HPF (0-4)
== END 2021-06-11 10:20 | disposition home or self-care (01) ==
LOC: HO.LAB 10:19
PROVIDERS: PCP Internal Medicine; Visit Provider Internal Medicine
DX: R35.0 Frequency of micturition (principal)
CPT/HCPCS: 81001; 81003

== ENCOUNTER → 2021-06-16 10:29 | Outpatient (REF) | payer MEDICARE, SELFPAY ==
--- NOTE | 2021-06-16 10:34 | HM_ITS ---
Total monitoring time 2 days and 23 hours. Underlying rhythm is atrial fibrillation. Minimum rate 60/Min. Maximum 132/Min. Average 88/Min. 100% of the time, rhythm was atrial fibrillation. No AV blocks or pauses. About 11% of the time, rate was greater than 100. Overall, rate control seems reasonable, with slight tendency for tachycardia. MTDD
== END ==
LOC: HO.CARD 10:29
PROVIDERS: PCP Internal Medicine; Visit Provider Internal Medicine Cardiovascular Disease
DX: I48.0 Paroxysmal atrial fibrillation (principal)
CPT/HCPCS: 93225; 93242

== ENCOUNTER 2021-06-20 11:16 | Outpatient (REF) | payer MEDICARE, SELFPAY ==
--- NOTE | ~2021-06-20 | US_ITS ---
EXAMINATION: US PELVIS LIMITED (BLADDER) CLINICAL INFORMATION: Frequency of micturition. COMPARISON: KUB 05/17/2013. CT abdomen and pelvis 12/04/2011. TECHNIQUE: Real-time imaging of the bladder. FINDINGS: BLADDER: Well distended and normal. Bilateral ureteral jets are demonstrated. Prevoid bladder volume is 135 mL. Postvoid bladder volume is 26 mL. PROSTATE: Prostate dimensions are 3.2 x 3.1 x 2.4 cm (volume 12.5 mL). US/US bladder IMPRESSION: Unremarkable examination.
== END 2021-06-20 11:17 | disposition home or self-care (01) ==
LOC: HO.HMGCX 11:16
PROVIDERS: PCP Internal Medicine; Visit Provider Internal Medicine
DX: R35.0 Frequency of micturition (principal)
CPT/HCPCS: 76857

== ENCOUNTER → 2021-07-01 13:34 | Outpatient (BNVA) | payer MEDICARE, SELFPAY | PROVIDERS: PCP Internal Medicine; Referring Provider Internal Medicine; Visit Provider Nurse Practitioner Family | DX: I48.0 Paroxysmal atrial fibrillation (principal); I63.9 Cerebral infarction, unspecified; I10 Essential (primary) hypertension | CPT/HCPCS: 99212 ==

== ENCOUNTER → 2021-09-30 10:23 | Outpatient (BNVA) | payer MEDICARE, SELFPAY | PROVIDERS: PCP Internal Medicine; Referring Provider Internal Medicine; Visit Provider Internal Medicine Cardiovascular Disease | DX: I48.0 Paroxysmal atrial fibrillation (principal); I73.9 Peripheral vascular disease, unspecified; I83.893 Varicose veins of bilateral lower extremities with other complications; E11.65 Type 2 diabetes mellitus with hyperglycemia; E11.21 Type 2 diabetes mellitus with diabetic nephropathy; I10 Essential (primary) hypertension; E78.00 Pure hypercholesterolemia, unspecified; E55.9 Vitamin D deficiency, unspecified; R46.0 Very low level of personal hygiene; R54 Age-related physical debility; Z72.0 Tobacco use; Z93.3 Colostomy status; Z98.890 Other specified postprocedural states; Z79.84 Long term (current) use of oral hypoglycemic drugs; Z79.899 Other long term (current) drug therapy | CPT/HCPCS: 99212 ==

== ENCOUNTER 2021-10-02 13:05 | Outpatient (REF) | payer MEDICARE, SELFPAY ==
--- NOTE | ~2021-10-02 | XR_ITS ---
EXAMINATION: LUMBAR SPINE, LEFT HIP AND CHEST CLINICAL INFORMATION: Pleural effusion. Pain. COMPARISON: CT chest 04/23/2021 TECHNIQUE: Lumbar spine 3 views. Left hip 2 views. Chest 2 views. FINDINGS: Chest: There is small to moderate left pleural effusion with underlying atelectasis. There is loss of left lung volume. The right lung is expanded and clear. The heart size and pulmonary vascularity is normal. No gross bony deformity seen. Lumbar spine: There is normal lumbar lordosis. The vertebral heights, alignment are normal. There is mild loss of L4-L5 and L5/S1 disc height. Rest the disc heights are normal. There is mild ventral spondylosis L3-L4 disc level. No visible acute fracture, dislocation or lytic process seen. There is mild ventral spondylosis left L1-L2 disc level.There is moderate L5-S1 left facet joint hypertrophy. Left hip: There is total left hip prosthesis with prosthetic components in satisfactory alignment. There are cerclage wires surrounding the proximal femoral prosthesis. The soft tissues are normal. XR/XR lumbar spine 2-3V IMPRESSION: Moderate left pleural effusion with underlying atelectasis is loss of left lung volume. Similar findings were seen on 04/23/2021. The right lung remains clear. There are degenerative disc changes L4-L5 and L5-S1 disc levels with mild ventral spondylosis at L3-L4 disc level. Total left hip prosthesis with prosthetic components in satisfactory alignment.
--- NOTE | ~2021-10-02 | XR_ITS ---
EXAMINATION: LUMBAR SPINE, LEFT HIP AND CHEST CLINICAL INFORMATION: Pleural effusion. Pain. COMPARISON: CT chest 04/23/2021 TECHNIQUE: Lumbar spine 3 views. Left hip 2 views. Chest 2 views. FINDINGS: Chest: There is small to moderate left pleural effusion with underlying atelectasis. There is loss of left lung volume. The right lung is expanded and clear. The heart size and pulmonary vascularity is normal. No gross bony deformity seen. Lumbar spine: There is normal lumbar lordosis. The vertebral heights, alignment are normal. There is mild loss of L4-L5 and L5/S1 disc height. Rest the disc heights are normal. There is mild ventral spondylosis L3-L4 disc level. No visible acute fracture, dislocation or lytic process seen. There is mild ventral spondylosis left L1-L2 disc level.There is moderate L5-S1 left facet joint hypertrophy. Left hip: There is total left hip prosthesis with prosthetic components in satisfactory alignment. There are cerclage wires surrounding the proximal femoral prosthesis. The soft tissues are normal. XR/XR chest 2V IMPRESSION: Moderate left pleural effusion with underlying atelectasis is loss of left lung volume. Similar findings were seen on 04/23/2021. The right lung remains clear. There are degenerative disc changes L4-L5 and L5-S1 disc levels with mild ventral spondylosis at L3-L4 disc level. Total left hip prosthesis with prosthetic components in satisfactory alignment.
--- NOTE | ~2021-10-02 | XR_ITS ---
EXAMINATION: LUMBAR SPINE, LEFT HIP AND CHEST CLINICAL INFORMATION: Pleural effusion. Pain. COMPARISON: CT chest 04/23/2021 TECHNIQUE: Lumbar spine 3 views. Left hip 2 views. Chest 2 views. FINDINGS: Chest: There is small to moderate left pleural effusion with underlying atelectasis. There is loss of left lung volume. The right lung is expanded and clear. The heart size and pulmonary vascularity is normal. No gross bony deformity seen. Lumbar spine: There is normal lumbar lordosis. The vertebral heights, alignment are normal. There is mild loss of L4-L5 and L5/S1 disc height. Rest the disc heights are normal. There is mild ventral spondylosis L3-L4 disc level. No visible acute fracture, dislocation or lytic process seen. There is mild ventral spondylosis left L1-L2 disc level.There is moderate L5-S1 left facet joint hypertrophy. Left hip: There is total left hip prosthesis with prosthetic components in satisfactory alignment. There are cerclage wires surrounding the proximal femoral prosthesis. The soft tissues are normal. XR/XR hip LT min 2V IMPRESSION: Moderate left pleural effusion with underlying atelectasis is loss of left lung volume. Similar findings were seen on 04/23/2021. The right lung remains clear. There are degenerative disc changes L4-L5 and L5-S1 disc levels with mild ventral spondylosis at L3-L4 disc level. Total left hip prosthesis with prosthetic components in satisfactory alignment.
== END 2021-10-02 13:06 | disposition home or self-care (01) ==
LOC: HO.XRAY 13:05
PROVIDERS: PCP Internal Medicine; Visit Provider Internal Medicine
DX: M19.90 Unspecified osteoarthritis, unspecified site (principal); J90 Pleural effusion, not elsewhere classified
CPT/HCPCS: 71046; 72100; 73502

== ENCOUNTER 2022-01-30 13:56 | Outpatient (REF) | payer MEDICARE, SELFPAY ==
[2022-01-30 14:30] LABS: Basophils Percent Auto 0.2 % (0-2); Eosinophils Absolute Auto 0.1 X10*3/uL (0.0-0.4); Eosinophils Percent Auto 0.6 % (0-4); Hematocrit 39.9 % (42.0-52.0); Hemoglobin 12.9 g/dl (14.0-18.0); Imm Gran Abs Auto 0.03 X10*3/uL (0.00-0.03); Imm Gran Pct Auto 0.4 % (0.0-0.4); Lymphocytes Absolute Auto 0.9 X10*3/uL (1.2-4.9); MANUAL DIFF FLAG NO; Mean Corpuscular HGB Conc 32.3 g/dl (31.0-36.0); Mean Corpuscular Hemoglobin 30.4 pg (27.0-33.0); Mean Corpuscular Volume 94.1 fL (80.0-98.0); Mean Platelet Volume 9.2 fL (9.4-12.4); Monocytes Absolute Auto 1.1 X10*3/uL (0.1-1.2); Monocytes Percent Auto 12.7 % (2-11); Neutrophils Absolute Auto 6.5 x10*3/uL (2.0-8.3); Neutrophils Percent Auto 76.1 % (45-73); Platelet Count 312 X10*3/uL (160-400); Red Blood Count 4.24 X10*6/uL (4.60-5.80); Red Cell Distribution Width 15.4 % (11.0-16.0); White Blood Count 8.5 X10*3/uL (4.8-10.8)
[2022-01-30 14:52] LABS: Alanine Aminotransferase 10 U/L (0-40); Albumin Level 4.1 g/dL (3.5-5.0); Alkaline Phosphatase 152 U/L (39-117); Anion Gap 16 (12-20); Aspartate Amino Transferase 10 U/L (5-37); B Type Natriuretic Peptide 120 pg/mL (<100); Bilirubin Total 0.7 mg/dL (0.0-1.0); Blood Urea Nitrogen 17 mg/dL (9-16); Calcium 10.3 mg/dL (8.4-10.2); Carbon Dioxide 25 mmol/L (22-29); Chloride 99 mmol/L (96-108); Cholesterol 124 mg/dL; Estimated Glomerular Filt Rate > 60; Glucose Random 185 mg/dL (60-115); HDL Cholesterol 45 mg/dL; LDL Cholesterol Calculated 56 mg/dl; Potassium 5.3 mmol/L (3.3-5.1); Sodium 135 mmol/L (135-145); Total Protein 7.4 g/dL (6.5-8.0); Triglycerides 115 mg/dL
[2022-01-30 15:04] LABS: Creatinine Urine 105.62 mg/dL; Microalbum/Creatinine Ratio Ur 46.3 ug/mg cr
[2022-01-30 15:05] LABS: Estimated Average Glucose 160 mg/dL; Hemoglobin A1c % 7.2 %
[2022-01-30 15:13] LABS: Free T4 (Free Thyroxine) 1.21 ng/dL (0.71-1.85); Thyroid Stimulating Hormone 1.82 uIU/mL (0.32-4.0)
[2022-01-30 15:26] LABS: Folate 14.7 ng/mL (> or = 4.0); Vitamin B12 429 pg/mL (200-900)
== END 2022-01-30 13:57 | disposition home or self-care (01) ==
LOC: HO.LAB 13:56
PROVIDERS: PCP Internal Medicine; Visit Provider Internal Medicine
DX: E11.65 Type 2 diabetes mellitus with hyperglycemia (principal); E78.00 Pure hypercholesterolemia, unspecified
CPT/HCPCS: 36415; 80053; 80061; 82043; 82607; 82746; 83036; 83880; 84439; 84443; 85025

== ENCOUNTER → 2022-03-10 10:03 | Outpatient (REF) | payer MEDICARE, SELFPAY ==
--- NOTE | 2022-03-10 10:11 | CA_ITS ---
Transthoracic Echocardiogram Patient (Last, First, Middle): Florentino Holder, Gender: Male Date of : 1950 Age: 71 Procedure Date: 03/10/2022 Procedure Type: Transthoracic Echocardiogram Location: OP Height: 182.88 cm Weight: 90.72 kg BSA: 2.13 m2 Heart Rate: bpm BP: 128 / 76 mmHg Entertainment Musician: EDWARDO Referring MD: Darin Liu MD Casting Sorter: Darin Liu MD Symptoms: I48.0 - Paroxysmal atrial fibrillation Study Quality: Technically Difficult ECG Rhythm: Atrial flutter Conclusions: - 1. Normal LV systolic function with moderate asymmetric septal hypertrophy 2. At least mildly dilated left atrium 3. Normal cardiac valvular Doppler 4. Normal RV systolic pressure 5. No gross pericardial effusion Findings Procedure Information Contrast agent, definity, is being given per protocol without apparent complications. Left Ventricle Normal left ventricular cavity size. There is normal left ventricular wall thickness. The left ventricular systolic function is normal. The visually estimated ejection fraction is between 65-70%. Regional wall motion abnormalities can not be excluded due to suboptimal endocardial definition. Diastolic function is indeterminate on the basis of available data. There is moderate septal asymmetric hypertrophy. Right Ventricle Mildly increased right ventricular cavity size. There is normal right ventricular systolic function. Atria The left atrium is mildly dilated. Interatrial shunt cannot be excluded. The right atrium is likely dilated. Aortic Valve There is mild calcification of the aortic valve. There is moderate thickening of the aortic valve. There is no aortic valve stenosis. There is no aortic valve regurgitation. Mitral Valve There is mild anterior mitral leaflet thickening. There is mild mitral annular calcification. There is trace mitral valve regurgitation. There is no mitral valve stenosis. Pulmonic Valve The pulmonic valve was not well visualized. Tricuspid Valve The tricuspid valve was not well visualized. Tricuspid regurgitation envelope is inadequate for calculation of right ventricular systolic pressure. Great Vessels All visible segments of the aorta are normal in size. The pulmonary artery was not well visualized. Venous The inferior vena cava is normal in size and collapses greater than 50% with inspiration. Pericardium/Pleural There is no evidence of pericardial effusion. Prior Study Comparison No significant change compared to prior study dated: 11/03/2018. Measurements 2D Linear Measurements IVSd: 1.11 0.6-0.9/0.6-1.0 cm LVIDd: 3.73 3.9-5.3/4.2-5.9 cm LVIDd Index: 1.75 2.4-3.2/2.2-3.1 cm/m2 LVIDs: 2.14 2.0-3.6 cm LVPWd: 0.59 0.7-1.1 cm LA Diam: 3.80 2.7-3.8/3.0-4.0 cm LAIDs Index: 1.78 1.5-2.3 cm/m2 LV Mass: 112.54 67-162/88-224 g LV Mass Index: 52.83 43-95/49-115 g/m2 LVOT Diam: 2.30 3.0+(-)1.3 cm 2D Systolic Function EF 4C: 79.60 >55% Aortic Valve AoV Pk Joshua: 1.35 AoV Mn Joshua: 0.89 AoV VTI: 0.22 AoV Pk Grad: 7.00 Aov Mn Grad: 4.00 JERRI Cont.VTI: 3.32 LVOT LVOT Pk Joshua: 1.03 LVOT Mn Joshua: 0.72 LVOT VTI: 0.18 LVOT Pk Grad: 4.00 LVOT Mn Grad: 2.00 LVOT Diam: 2.30 LVOT Area: 4.15 Right Ventricle TAPSE (mm): 14.60 TVS' Joshua: 7.60 Tricuspid Valve RA Press: 3.00 Great Vessels Aorta Sinus of Valsalva: 3.40 2.0-3.[address] Ridge: 2.90 1.7-3.4 cm Ao Asc: 3.50 2.1-3.4 cm Pulmonary Valve PV Pk Joshua: 0.56 Peak PV Grad: 1.00 Updated in Other Vendor System with Status of Final Darin Liu MD electronically signed on 03/11/2022 1:30:08 PM with status of Final
== END ==
LOC: HO.CARD 10:03
PROVIDERS: PCP Internal Medicine; Visit Provider Internal Medicine Cardiovascular Disease
DX: I48.0 Paroxysmal atrial fibrillation (principal)
CPT/HCPCS: 93306; Q9957

== ENCOUNTER → 2022-03-23 10:14 | Outpatient (BNVA) | payer MEDICARE, SELFPAY | PROVIDERS: PCP Internal Medicine; Referring Provider Internal Medicine; Visit Provider Internal Medicine Cardiovascular Disease | DX: I48.20 Chronic atrial fibrillation, unspecified (principal); I10 Essential (primary) hypertension | CPT/HCPCS: 99212 ==

== ENCOUNTER 2022-09-09 15:59 | Outpatient (REF) | payer MEDICARE, SELFPAY ==
[2022-09-09 16:22] LABS: MANUAL DIFF FLAG NO
[2022-09-09 16:53] LABS: Basophils Percent Auto 0.4 % (0-2); Eosinophils Percent Auto 0.6 % (0-4); Hematocrit 38.5 % (42.0-52.0); Hemoglobin 12.4 g/dl (14.0-18.0); Imm Gran Abs Auto 0.03 X10*3/uL (0.00-0.03); Imm Gran Pct Auto 0.4 % (0.0-0.4); Lymphocytes Absolute Auto 0.7 X10*3/uL (1.2-4.9); Lymphocytes Percent Auto 9.7 % (20-40); Mean Corpuscular HGB Conc 32.2 g/dl (31.0-36.0); Mean Corpuscular Hemoglobin 31.2 pg (27.0-33.0); Mean Platelet Volume 9.2 fL (9.4-12.4); Monocytes Percent Auto 14.5 % (2-11); Neutrophils Absolute Auto 5.1 x10*3/uL (2.0-8.3); Neutrophils Percent Auto 74.4 % (45-73); Platelet Count 315 X10*3/uL (160-400); Red Blood Count 3.97 X10*6/uL (4.60-5.80); Red Cell Distribution Width 17.6 % (11.0-16.0); Retic HGB Equivalent 40.2 pg (30.0-35.0); Reticulocyte Percent 2.1 % (0.5-1.8); Reticulocytes Absolute 0.082 X10*6/uL (0.026-0.095); White Blood Count 6.9 X10*3/uL (4.8-10.8)
[2022-09-09 17:28] LABS: Alanine Aminotransferase 6 U/L (0-40); Albumin Level 3.4 g/dL (3.5-5.0); Alkaline Phosphatase 191 U/L (39-117); Anion Gap 19 (12-20); Aspartate Amino Transferase 9 U/L (5-37); Bilirubin Total 1.1 mg/dL (0.0-1.0); Blood Urea Nitrogen 13 mg/dL (9-16); Calcium 9.3 mg/dL (8.4-10.2); Carbon Dioxide 23 mmol/L (22-29); Chloride 99 mmol/L (96-108); Estimated Glomerular Filt Rate > 60; Glucose Random 165 mg/dL (60-115); Iron 58 mcg/dL (45-160); Percent Iron Saturation 26 % (15-50); Potassium 5.4 mmol/L (3.3-5.1); Sodium 136 mmol/L (135-145); Total Iron Binding Capacity 226 mcg/dL (228-428); Total Protein 6.5 g/dL (6.5-8.0); Unsaturated Iron Binding 168 ug/dL
[2022-09-09 17:36] LABS: B Type Natriuretic Peptide 189 pg/mL (<100)
[2022-09-09 17:51] LABS: Ferritin 379 ng/mL (20-250); Thyroid Stimulating Hormone 1.65 uIU/mL (0.32-4.0)
[2022-09-09 18:32] LABS: Folate 6.7 ng/mL (> or = 4.0); Vitamin B12 685 pg/mL (200-900)
== END 2022-09-09 16:00 | disposition home or self-care (01) ==
LOC: HO.LAB 15:59
PROVIDERS: Visit Provider Internal Medicine
DX: D64.9 Anemia, unspecified (principal); E11.65 Type 2 diabetes mellitus with hyperglycemia; I48.20 Chronic atrial fibrillation, unspecified
CPT/HCPCS: 36415; 80053; 82607; 82728; 82746; 83540; 83880; 84443; 85025; 85045

== ENCOUNTER 2022-10-06 16:54 | Inpatient (IN) | payer MEDICARE, SELFPAY ==
--- NOTE | ~2022-10-06 | US_ITS ---
EXAMINATION: NONINVASIVE ASSESSMENT OF THE ARTERIES OF BOTH LOWER EXTREMITIES Miko Cain MD CLINICAL INFORMATION: Bilateral lower extremity edema with question of ischemia TECHNIQUE: Bilateral lower extremity duplex ultrasound was performed with velocity measurements and waveform analysis in the common femoral arteries, profunda femoris arteries, proximal mid and distal superficial femoral arteries, popliteal arteries and tibial vessels. This study was performed only at rest. COMPARISON: None FINDINGS: Velocities in cm/sec and phasicity as well as the presence of plaque are reported below. RIGHT LEG: Triphasic flow noted throughout with mild plaque Common Femoral: 97 Profunda Femoris: 83 Proximal SFA: 78 Mid SFA: 68 Distal SFA: 62 Popliteal: 51 Posterior tibial: 88 Peroneal: Not seen LEFT LEG: Triphasic flow noted throughout with mild plaque Common Femoral: 113 Profunda Femoris: 86 Proximal SFA: 71 Mid SFA: 107 Distal SFA: 77 Popliteal: 40 Posterior tibial: 75 Peroneal: Not seen US/US arterial duplex LE BI IMPRESSION: Normal triphasic flow throughout. No areas of velocity to suggest significant stenoses. There is no evidence of any hemodynamically significant lower extremity arterial disease by waveform or duplex Doppler criteria at rest.
--- NOTE | ~2022-10-06 | XR_ITS ---
EXAMINATION: XR CHEST CLINICAL INFORMATION: Upper respiratory infection symptoms. COMPARISON: 10/02/2021. TECHNIQUE: Frontal view of the chest was obtained. FINDINGS: Again noted volume loss of the left lung. There is increased opacification of the retrocardiac region and left lower lobe compared to 10/02/2021. Redemonstration of a chronic left-sided pleural effusion. Similar degree of interstitial thickening in the right lung. No pneumothorax. No acute osseous abnormalities. Stable mild leftward deviation of the cardiomediastinal silhouette. XR/XR chest 1V IMPRESSION: Increased opacification of the retrocardiac region and left lower lobe compared to 10/02/2021 which is nonspecific and could be associated with worsening atelectasis or consolidation. Chronic volume loss of the left lung with a chronic left-sided pleural effusion. A follow-up examination with a chest CT with IV contrast is recommended to rule out underlying lesions.
--- NOTE | ~2022-10-06 | XR_ITS ---
EXAMINATION: XR CHEST CLINICAL INFORMATION: Endotracheal tube placement COMPARISON: Chest x-ray October 11, 2022 TECHNIQUE: Frontal view of the chest was obtained. FINDINGS: Endotracheal tube terminates approximately 5.6 cm above the level the radha. Enteric tube terminates below the level the diaphragm, beyond the parameters of today's chest x-ray. Left-sided jugular catheter is stable terminating within the mid SVC. Pigtail catheter again noted projecting over the left midlung. Patchy bilateral airspace disease is again appreciated, once again most prominent within the right upper lobe. No pneumothorax. Suspected small left-sided pleural effusion persists. XR/XR chest 1V IMPRESSION: 1. Support apparatus in expected position. 2. Persistent patchy bilateral airspace disease, most prominent within the right upper lobe.
--- NOTE | ~2022-10-06 | CT_ITS ---
EXAMINATION: CT GUIDED PLEURAL DRAINAGE CATHETER, LEFT CLINICAL INFORMATION: Left pleural empyema/abscess. COMPARISON: None TECHNIQUE: Following obtaining informed phone consent from proxy for left pleural empyema drainage catheter placement after explaining procedure, benefits and risks, patient was placed supine on CT table. Patient was placed in semi right decubitus supine view and CT imaging was obtained with markers placed along the left lateral chest and optimal site was selected along the right lateral lower chest and marked. However, patient suddenly got obtunded and there was foul-smelling drainage into the endotracheal tube and respiratory apparatus. Patient's suddenly desaturated with rapid drop of blood pressure, hence the exam was canceled. Multidetector volumetric CT imaging of the chest was done. Axial MIP volume rendering provided. Sagittal and coronal reformatted images were obtained. This CT examination was performed using dose optimization techniques as appropriate, variously including the following: *Automated exposure control *Adjustment of mA and/or kV according to patient size (this includes techniques or standardized protocols for targeted exams where dose is matched to indication/reason for exam; i.e. extremities or head) *Use of iterative reconstruction technique DLP: 147 mGy-cm FINDINGS: PRIMARY GRADE TEACHER: Moderate opacification of the left lung. LUNGS: There is moderate size complicated fluid collection/pus in the left mid to lower chest. There is collapsed left mid and lower lobe scattered pockets of air within the left lower lobe likely an abscess. 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 There are multiple patchy infiltrates seen throughout both lungs with the largest consolidation left lower lobe, likely abscess, and right lower lobe. MEDIASTINUM: The heart size and great vessels are normal caliber. No pericardial effusion seen. There is an endotracheal tube and enteric tube in satisfactory position. No abnormal mediastinal lymph nodes or mass seen. CORONARY ARTERY CALCIFICATION: None visualized on this study. PLEURA: There is a moderate-sized left pleural complicated collection likely empyema. There is a small right pleural effusion. AXILLA: No lymphadenopathy. UPPER ABDOMEN: Visualized liver, spleen and pancreas unremarkable. OSSEOUS STRUCTURES: No aggressive lytic or sclerotic process seen. CT/CT chest wo IV con IMPRESSION: 1. Moderate-sized left mid to lower chest complicated fluid collection likely empyema. 2. There is collapsed left mid and lower lobe with multiple pockets of air within the left lower lobe likely abscess. 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 3. There are multiple bilateral patchy infiltrates with the largest consolidation in the left lower lobe and right lower lobe. 4. Small right pleural effusion. Fleischner guidelines were followed.
--- NOTE | ~2022-10-06 | XR_ITS ---
EXAMINATION: XR CHEST CLINICAL INFORMATION: CVL placement. COMPARISON: 10/07/[address] scan dated 10/06/2022. TECHNIQUE: Frontal view of the chest was obtained. FINDINGS: Support devices: Endotracheal tube with tip terminating approximately 5 cm proximal to radha. Left internal jugular catheter with tip terminating at the level the superior vena cava. Enteric tube with tip overlying the proximal gastric lumen. Left lung again shows volume loss with patchy opacities and pleural thickening. Increased aeration is seen at the left lung base. Mild cardiomediastinal shift to the left. Mild coarsened interstitial markings are seen on the right. XR/XR chest 1V IMPRESSION: 1. Left internal jugular catheter with tip terminating at the level the superior vena cava. 2. Left lung volume loss with patchy opacities and pleural thickening. Improved aeration at the left lung base.
--- NOTE | ~2022-10-06 | CT_ITS ---
EXAMINATION: CT ABDOMEN AND PELVIS WITH CONTRAST CLINICAL INFORMATION: Diffusely tender abdomen COMPARISON: 11/26/2011 TECHNIQUE: Multidetector volumetric images were obtained from the superior aspect of the liver through the pubic symphysis following administration 65 mL of Omnipaque 350 intravenous contrast. Sagittal and coronal reformatted images were obtained on the technologist's workstation. Oral contrast: No This CT examination was performed using dose optimization techniques as appropriate, variously including the following: *Automated exposure control *Adjustment of mA and/or kV according to patient size (this includes techniques or standardized protocols for targeted exams where dose is matched to indication/reason for exam; i.e. extremities or head) *Use of iterative reconstruction technique DLP: 599 mGy-cm FINDINGS: LUNG BASES: Partially visualized fluid collection at the basal left hemithorax also containing a small amount of gas; this will be better assessed on accompanying dedicated chest CT. LIVER, GALLBLADDER, AND BILIARY TREE: The liver demonstrates a slightly nodular contour. No focal hepatic lesion or biliary ductal dilatation is present. Mild cholelithiasis noted. PANCREAS: Mildly atrophic. SPLEEN: Unremarkable. ADRENAL GLANDS: Unremarkable. KIDNEYS AND URETERS: No hydronephrosis or obstructing calculus bilaterally. Several bilateral renal cysts are present; these measure up to approximately 3.6 cm) no further follow-up. There is a 4 mm left lower pole renal calculus. Nonspecific bilateral perinephric stranding noted. BLADDER: Mildly distended and grossly unremarkable. GASTROINTESTINAL TRACT: No evidence of bowel obstruction or significant wall thickening. No free fluid or free air is seen. ABDOMINAL WALL: Status post ventral hernia repair. LYMPH NODES: Normal. VASCULAR: There is atherosclerotic calcification along the aorta and iliac arteries. PELVIC VISCERA: Unremarkable. OSSEOUS STRUCTURES: Degenerative changes are noted in the spine. Status post left total hip arthroplasty. CT/CT abdomen pelvis w IV con IMPRESSION: 1. No acute findings identified in the abdomen/pelvis. 2. Slightly nodular hepatic contour, for which mild changes of cirrhosis cannot be excluded. 3. Partially visualized fluid collection at the basal left hemithorax also containing a small amount of gas, which will be better assessed on accompanying dedicated chest CT.
--- NOTE | ~2022-10-06 | XR_ITS ---
EXAMINATION: XR CHEST CLINICAL INFORMATION: Status post intubation. COMPARISON: Chest radiograph 10/07/2022, CT chest 10/06/2022. TECHNIQUE: Frontal view of the chest was obtained. FINDINGS: An endotracheal tube terminates 5 cm superior to the radha. Blunting of the left costophrenic sulcus and left base airspace opacity is again noted along with vascular indistinctness in the left lung. Diffuse vascular indistinctness is present in the right lung. No pneumothoraces identified. XR/XR chest 1V IMPRESSION: *Endotracheal tube terminating 5 cm superior to the radha. *Unchanged left pleural effusion left base atelectasis and/or consolidation. Findings could represent pneumonia with a parapneumonic effusion. *Findings suspicious for mild pulmonary vascular congestion.
--- NOTE | ~2022-10-06 | XR_ITS ---
EXAMINATION: XR CHEST CLINICAL INFORMATION: Dyspnea. COMPARISON: CT chest 10/06/2022, chest radiograph 10/06/2022 TECHNIQUE: Frontal view of the chest was obtained. FINDINGS: 6 moderate blunting of left costophrenic sulcus is noted along with left base airspace opacification. No pneumothoraces identified. The cardiac silhouette is grossly normal in size. XR/XR chest 1V IMPRESSION: *Moderate left pleural effusion left base airspace disease grossly unchanged compared with 10/06/2022 5:44 PM.
--- NOTE | ~2022-10-06 | CT_ITS ---
EXAMINATION: CT CHEST WITHOUT CONTRAST CLINICAL INFORMATION: Abnormal chest x-ray. Dyspnea. COMPARISON: Multiple prior exams. Most recent chest x-ray 10/06/2022. CT chest 04/23/2021 TECHNIQUE: Multidetector volumetric CT imaging of the chest was done. Axial MIP volume rendering provided. Sagittal and coronal reformatted images were obtained. This CT examination was performed using dose optimization techniques as appropriate, variously including the following: *Automated exposure control *Adjustment of mA and/or kV according to patient size (this includes techniques or standardized protocols for targeted exams where dose is matched to indication/reason for exam; i.e. extremities or head) *Use of iterative reconstruction technique DLP: 289 mGy-cm FINDINGS: LUNGS: There is dense consolidation of the left lung base with volume loss left hemithorax. Right lung normally aerated. There is an 8 x 4 mm (average diameter 6 mm) nodule at the right upper lobe. This unchanged since CAT scan 04/23/2021. No new lung nodules. Overall volume loss of left hemithorax with soft tissue density around the left hilum. This is likely due to atelectasis of the left lung as seen on CAT scan 04/23/2021. Underlying mass cannot be entirely excluded however. MEDIASTINUM: Numerous small subcentimeter lymph nodes in the mediastinum present in the pretracheal retrovascular space, paratracheal space, AP window and subcarina. These may be reactive. Heart size normal. No aneurysm of aorta. Scattered vascular wall calcifications of aorta. CORONARY ARTERY CALCIFICATION: Moderate volume of coronary artery calcifications. PLEURA: Loculated left sided pleural fluid collection. There is thickening of the wall of this collection. There our multiple small air droplets present within the collection. This could be due to a bronchopleural fistula versus infection. The overall volume of the fluid collection has decreased since CAT scan 04/23/2021 but the air within the collection is new. AXILLA: No axillary lymphadenopathy. UPPER ABDOMEN: Contrast opacifies the collecting system of the kidneys without hydronephrosis. Partial visualization of multiple renal cysts. No follow-up imaging is recommended for simple renal cyst. No abnormality visualized portions of liver, spleen, pancreas or the adrenal glands. Surgical mesh at the anterior upper abdominal wall without evidence of ventral wall hernia. OSSEOUS STRUCTURES: Multilevel degenerative spondylosis spine. CT/CT chest wo IV con IMPRESSION: 1. Loculated left-sided pleural fluid collection with thickening of the wall. Multiple air droplets present within the collection. This could be due to a bronchopleural fistula versus infection. The overall volume of the fluid collection has decreased since CAT scan 04/23/2021 but the air within the collection is new. 2. Consolidation of the left lung base with volume loss left hemithorax. Soft tissue density around the left hilum likely due to atelectasis of the left lung as seen on CAT scan 04/23/2021. Underlying mass cannot be excluded however. 3. 6 mm nodule right upper lobe unchanged since CAT scan 04/23/2021. No new lung nodules. Fleischner guidelines were followed.
--- NOTE | ~2022-10-06 | XR_ITS ---
EXAMINATION: XR CHEST CLINICAL INFORMATION: Status post insertion of left pigtail chest tube. COMPARISON: 10/07/2022 chest radiograph. TECHNIQUE: Frontal view of the chest was obtained. FINDINGS: Support devices: Interval placement of left lower lung field chest tube. The endotracheal tube is positioned approximately 3.5 cm proximal to radha. Left-sided internal jugular catheter tip terminating overlying the superior vena cava. Enteric tube with tip not included on the study but seen below the left hemidiaphragm. There is been interval decrease in opacification in the region of the newly placed pigtail catheter. Persistent consolidation is seen in the left upper lung field. Mild increased patchy opacities are seen in the right lung. The heart and mediastinal structures are unremarkable. XR/XR chest 1V IMPRESSION: 1. Decreased opacification/pleural fluid in the region of the newly placed left pigtail catheter. Consolidation in the left upper lobe is not significantly changed. 2. Right lung infiltrates appear increased.
--- NOTE | ~2022-10-06 | US_ITS ---
EXAMINATION: ULTRASOUND GUIDED LEFT THORACENTESIS AND DRAINAGE CATHETER INSERTION. PORTABLE. CLINICAL INFORMATION: Large loculated empyema and likely left lung abscess. COMPARISON: CT chest 10/08/2022 and 10/06/2022. TECHNIQUE: Following obtaining phone consent about left thoracentesis and catheter placement by phone with patient's proxy, informed consent was obtained. In the ICU preliminary ultrasound was performed through the left lateral chest wall. An optimal site was selected and marked. Marked site was cleaned and draped in usual sterile manner. 1% lidocaine was injected puncture site. Through a small skin incision a 5 Welsh Yueh catheter was advanced into the loculated left lower lung collection. There was instant pus drainage seen. A sample was obtained for ALODIZE MACHINE OPERATOR and 20 mL syringe. Subsequently a 0.035 J-wire was advanced to the Yueh catheter and the catheter removed. A 12 Welsh APD catheter with stiffener was advanced over the guidewire. The stiffener was loosened as the catheter was advanced over the guidewire. Subsequently the guidewire and the stiffener was removed and a pigtail was formed. The catheter was anchored to the skin with 3-0 nonabsorbable sutures. Dressing was applied at the puncture site. Patient tolerated procedure extremely well. FINDINGS: On preliminary ultrasound imaging and images documented revealed moderate echogenic fluid within the left lower hemithorax. Successful insertion of a 12.2 Welsh drainage catheter in the loculated left pleural collection. Approximately 200 mL of dark brown pus was drained from the loculated collection. The chest catheter was connected to low wall suction. US/US drain thoracentesis w image IMPRESSION: 1. Successful ultrasound placement of a left chest tube drainage catheter as described above. 2. Ultrasound and IR technologist were present on this portable exam.
--- NOTE | ~2022-10-06 | US_ITS ---
EXAMINATION: US VENOUS ULTRASOUND WITH DOPPLER LOWER EXTREMITY, BILATERAL CLINICAL INFORMATION: Swelling COMPARISON: None TECHNIQUE: Ultrasound of the deep veins is performed from the hip to the calf with compression sonography and color and pulse Doppler assessment. Spectral analysis with color-flow imaging is performed. FINDINGS: RIGHT: There is normal venous compression and respiratory variation and augmented flow. The visualized common femoral vein, superficial femoral vein, profunda femoral vein, popliteal vein, and the trifurcation region shows no evidence of deep venous thrombosis. There is no significant popliteal fossa cyst. LEFT: There is normal venous compression and respiratory variation and augmented flow. The visualized common femoral vein, superficial femoral vein, profunda femoral vein, popliteal vein, and the trifurcation region shows no evidence of deep venous thrombosis. There is no significant popliteal fossa cyst. If the patient's symptoms persist, followup ultrasound in 5 days 7 days might be of value to exclude proximal propagation from a non-visualized calf vein. US/US venous duplex LE BI IMPRESSION: No DVT demonstrated in the bilateral lower extremities..
--- NOTE | ~2022-10-06 | XR_ITS ---
EXAMINATION: XR CHEST CLINICAL INFORMATION: Hypoxemia. COMPARISON: Chest x-ray 10/10/2022, 10/08/2022 TECHNIQUE: Frontal portable view of the chest was obtained. 5:00 PM FINDINGS: Tubes and lines: 1. Endotracheal tube 4.5 cm above the radha. 2. Left IJ catheter tip unchanged position at the right superior mediastinum in the area of the origin of the superior vena cava. 3. Nasogastric tube in stomach. 4. Left chest tube in place similar to prior study. Extensive multifocal bilateral airspace opacity. Severity is similar to prior chest x-ray 10/10/2022. No pneumothorax. XR/XR chest 1V IMPRESSION: 1. Endotracheal tube 4.5 cm above the radha. 2. Left IJ catheter tip unchanged position at the right superior mediastinum in the area of the origin of the superior vena cava. 3. Nasogastric tube in stomach. 4. Left chest tube in place similar to prior study. No pneumothorax.
--- NOTE | ~2022-10-06 | XR_ITS ---
EXAMINATION: XR CHEST CLINICAL INFORMATION: Follow-up pneumonia. COMPARISON: Chest radiograph 10/08/2022. TECHNIQUE: Frontal view of the chest was obtained. FINDINGS: Patient is significantly rotated limiting this evaluation. The endotracheal tube is at approximately 3 cm above the radha. EKG wires overlie the chest. Stable positioning of a left lower chest pigtail catheter. Multifocal airspace opacities are increased compared to 10/08/2022 with several new opacities in the right lung. Evaluation of pneumothorax and pleural effusions is very limited due to rotation. However, accounting for these limitations, the amount of bilateral pleural fluid appears increased compared to 10/08/2022, small to moderate in size on the left side and overall a small in size on the right side. No large pneumothorax. No displaced osseous fractures. XR/XR chest 1V IMPRESSION: Limited examination secondary to patient's rotation. 1. The endotracheal tube is at approximately 3 cm above the radha. 2. Worsening pulmonary aeration with increased multifocal airspace opacities and increased pleural fluid. 3. No large pneumothorax.
--- NOTE | ~2022-10-06 | XR_ITS ---
EXAMINATION: XR CHEST CLINICAL INFORMATION: Central line placement COMPARISON: 10/07/2022 at 6:05 AM TECHNIQUE: Frontal view of the chest was obtained at 6:55 AM. FINDINGS: New left internal jugular approach central venous catheter seen with tip in the midsuperior vena cava. Endotracheal tube remains in place with tip 3 cm above the radha. Similar appearance of known loculated moderate left pleural effusion and associated left base consolidation with fluid extending to the left lung apex. There is volume loss and shift of the heart and mediastinum to the left. XR/XR chest 1V IMPRESSION: New left internal jugular approach central venous catheter with tip in the midsuperior vena cava. Known loculated left pleural effusion again seen. No pneumothorax.
--- NOTE | ~2022-10-06 | CT_ITS ---
EXAMINATION: CT CHEST WITHOUT CONTRAST CLINICAL INFORMATION: Preoperative examination for decortication. COMPARISON: Prior CT examinations, most recently 10/08/2022. TECHNIQUE: Multidetector volumetric CT imaging of the chest was done. Axial MIP volume rendering provided. Sagittal and coronal reformatted images were obtained. This CT examination was performed using dose optimization techniques as appropriate, variously including the following: *Automated exposure control *Adjustment of mA and/or kV according to patient size (this includes techniques or standardized protocols for targeted exams where dose is matched to indication/reason for exam; i.e. extremities or head) *Use of iterative reconstruction technique DLP: 3. mGy-cm FINDINGS: MANAGER SHIFT: There is leftward mediastinal shift. There are multi-focal patchy right lung infiltrates, most pronounced within the upper lung field. There is dense opacification of the left upper lobe. A loculated pneumothorax is seen at the left base, consistent with a trapped lung appearance. A left thoracostomy tube is noted. LUNGS: There is multi-focal patchy right lung airspace disease, most pronounced within the upper lobe and at the medial left base. This appearance favors a pneumonic process. Within the left upper lobe, there is very dense consolidation, with air bronchograms. There is a loculated hydropneumothorax at the left base, with trapped lung appearance. A left base thoracostomy tube is seen. There is a fistulous extension of the loculated pneumothorax at the lateral left base, traversing the intercostal musculature and extending into the subcutaneous tissues (i.e., 5:467 and 6:64). An endotracheal tube is noted. The distal left main stem bronchus appears occluded (5:229 and 6:53). MEDIASTINUM: The thyroid is unremarkable. There is leftward mediastinal shift. No thoracic aortic aneurysm is seen. There are atherosclerotic calcifications of the great vessel origins and thoracic aorta. There are numerous enlarged paratracheal lymph nodes. One of the largest is seen right posterolateral, measuring 2.5 x 1.6 cm (3:8). There are shotty AP window lymph nodes. In the subcarinal region (3:25), a 2.8 x 1.7 cm lymph node is seen. Within the left suprahilar region (3:20), a 1.5 x 1.2 cm lymph node is seen. CORONARY ARTERY CALCIFICATION: [id number]. PLEURA: There is a small to moderate right pleural effusion. There is a loculated left hydropneumothorax, as detailed. There is circumferential pleural thickening, likely an inflamed pleural rind, within the mid and lower left chest. AXILLA: There is a left axillary lymph node, with short axis diameter of 1.1 x 0.9 cm (3:15). No sizable lymphadenopathy is seen. There is diffuse subcutaneous emphysema of the back, bilateral flank regions, the left chest wall anterior to the mid axillary line and the left axilla. UPPER ABDOMEN: Unremarkable. A nasogastric tube is noted, with tip excluded from the [id number]. OSSEOUS STRUCTURES: There is multi-level marked thoracic spondylosis. No acute or aggressive osseous abnormality is seen. CT/CT chest wo IV con IMPRESSION: A loculated left hydropneumothorax is seen, with inflamed pleural rind. A left pigtail thoracostomy tube is noted. 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 There is dense consolidation of the left upper lobe, with obstruction of the distal left mainstem bronchus. There is marked patchy contralateral right lung airspace disease, consistent with pneumonia. There is anasarca. Fleischner guidelines were followed.
[2022-10-06 17:23] VITALS: BP 126/92; PULSE 109
[2022-10-06 17:31] VITALS: BMI 29.9
--- NOTE | 2022-10-06 17:37 | ED.GENADULT ---
HPI - General Adult General Chief complaint: General Medical Stated complaint: pneumonia Time Seen by Provider: 10/06/22 17:29 Source: patient and EMS Mode of arrival: EMS Limitations: no limitations History of Present Illness HPI narrative: This is a 71-year-old male past medical history significant for atrial fibrillation anticoagulated on Eliquis, asthma, anemia, depression, CVA, type 2 diabetes, BPH, hypertension, osteoarthritis presenting to the emergency department via ambulance from Urgent Care with complaints of productive cough, shortness of breath, fatigue, malaise, increasing weakness, subjective fevers and chills x3 weeks progressively worsening. Patient also reporting some abdominal discomfort diffuse in nature. He tells me he is having associated urinary frequency and urgency however this has been a chronic issue for him over the past year. Patient denies chest pain, shortness of breath, headache, vision changes in dizziness. Current daily smoker hasn't been smoking since symptoms started however. Related Data Home Medications Medication Instructions Recorded Confirmed acetaminophen 325 mg tablet 650 mg PO Q8H PRN Pain 05/28/21 10/06/22 (Tylenol) ascorbate calcium (vitamin C) 500 500 mg PO DAILY 10/15/21 10/06/22 mg tablet Previous Rx's Medication Instructions Recorded blood-glucose meter (Accu-Chek #1 ea 06/10/21 Reyna Plus Meter) multivitamin (One-A-Day Essential 1 tab PO DAILY #30 tabs 10/15/21 tablet) tramadol 50 mg tablet 50 mg PO QID pain 30 days #360 tabs 03/25/22 diltiazem HCl 300 mg 300 mg PO DAILY 90 days #90 caps 06/08/22 capsule,extended release 24 hr (Cardizem CD) albuterol sulfate 90 mcg/actuation 2 puff inhalation Q6H PRN 06/22/22 aerosol inhaler (ProAir HFA) shortness of breath or wheezing #8.5 grams metformin 1,000 mg tablet 1,000 mg PO BID 90 days #180 tabs 06/22/22 empagliflozin 25 mg tablet 25 mg PO DAILY 30 days #30 tabs 09/10/22 alprazolam 0.25 mg tablet 0.25 mg PO BEDTIME PRN sleep #14 09/14/22 tabs atorvastatin 10 mg tablet 10 mg PO DAILY #90 tabs 09/17/22 Allergies Allergy/AdvReac Type Severity Reaction Status Date / Time No Known Allergies Allergy Verified 10/06/22 15:01 Review of Systems Review of Systems: Constitutional : No Weight loss, + Fever, + Chills, + Fatigue, + Malaise ENT/Mouth : No sore throat, No Rhinorrhea Eyes: No Eye Pain, No Swelling, No Redness Cardiovascular : No Chest Pain, + SOB, No Dyspnea on Exertion, No Orthopnea, No Edema, No Palpitations Respiratory : + Cough, + Sputum, No Wheezing Gastrointestinal : No Nausea, No Vomiting, No Diarrhea, No Constipation, No abdominal Pain, No Hematochezia, No Melena Genitourinary : + Dysuria, + Urinary Frequency, No Hematuria, Musculoskeletal : No joint pain, + Myalgias, No Joint Swelling Skin : No Skin Lesions, No rash Neuro : + Weakness, No Numbness, No Dizziness, No Headache Psych : No Anxiety/Panic, No Depression All other systems reviewed and are negative Yes all other systems are reviewed and are negative PMFSH Past Medical History Attestation statement: The following information was validated with the patient. Source: old records reviewed and nursing notes reviewed Medical History Alcohol abuse Atrial fibrillation BPH (benign prostatic hyperplasia) Chronic atrial fibrillation Diabetic nephropathy Diverticulitis Hypercholesterolemia Hypertension Macrocytosis without anemia Osteoarthritis Overweight (BMI 25.0-29.9) Peripheral vascular disease Sepsis Tobacco abuse Type 2 diabetes mellitus with hyperglycemia Vitamin D deficiency Surgical History Colostomy status History of appendectomy History of colonoscopy History of hip replacement History of laparotomy History of surgery History of surgery Status post Bret procedure Family History Family History Father Cancer of back Son In good health Social History Social History Housing: House Alcohol intake: never Patient Tobacco Use Status: Former Tobacco user (two months ago) Cigarette Packs Per Day: 0.5 e-Cigarette/Vaping Use: Never Used Second Hand Smoke Exposure: No Advance Directives: No Advance Directives Information Provided: No service: No Current occupational status: retired Cognitive needs: No Hearing needs: No Vision needs: Yes Physical Exam ED Vital Signs: Vital Signs - 24 hr 10/06/22 19:25 Temperature 98.4 F Pulse Rate 88 Respiratory Rate 20 Blood Pressure 115/65 Pulse Oximetry 92 Oxygen Delivery Method Room Air BMI result Body Mass Index 29.9 Vital signs stable Appearance: Alert.? Oriented X3.? No acute distress.? Head: Normocephalic, atraumatic, no step-offs or deformities Eyes: Pupils equal, round and reactive to light.? ENT: Pharynx normal.? Neck: Normal inspection.? Neck supple.? CVS: Normal heart rate and rhythm.? Pulses normal.? Respiratory: No respiratory distress.? Breath sounds diminished bilaterally worse on the left, and rhonchi throughout.? Abdomen: Soft and diffusely tender. Normal BS .? Skin: Skin warm and dry.? Normal skin color.? Normal skin turgor.? Extremities: No lower extremity edema.? No calf ttp. 5/5 strength to bilateral upper and lower extremities Neuro: Oriented X 3.? No motor deficit.? No sensory deficit. CN 2-12 intact Course Reevaluation(s) Reevaluation #1: Patient's CBC with leukocytosis 12.9, macrocytic anemia noted, chemistry with no acute electrolyte abnormalities requiring intervention, lactic acid 2.9 receiving ceftriaxone and fluids. X-ray showing concerns for left lower lobe pneumonia. Patient is saturating 92% at rest, suspected if patient ambulates he will desat, he is feeling short of breath even at rest. Pending UA. Plan to admit patient to hospital for admission. Time: 20:22 Reevaluation #2: CT of the chest showing loculated left-sided pleural fluid collection with wall thickening. Also consolidation of the left lung base. Patient was given antibiotics. CT of the abdomen and pelvis with no acute findings in the abdomen or pelvis. Patient to be admitted to the hospitalist for further intervention treatment. Time: 21:39 Medications Administered Discontinued Medications Generic Name Dose Route Start Last Admin Trade Name Freq PRN Reason Stop Dose Admin Sodium Chloride 2,757 mls @ 2,757 mls/hr 10/06/22 18:00 10/06/22 19:53 Ns 30 ml/kg infuse over 1 hr (2757 ml) 10/06/22 18:59 2,757 mls/hr IV Administration .Q1H STA Ceftriaxone Sodium 1 gm/ 50 mls @ 100 mls/hr 10/06/22 18:00 10/06/22 20:11 Sodium Chloride IV 10/06/22 18:29 Infused ONCE ONE Infusion Iohexol 100 ml 10/06/22 20:46 10/06/22 20:50 Iohexol 350 Mg/Ml 100 Ml Infus..Btl IV 10/06/22 20:47 85 ml ONCE ONE Administration Medical Decision Making Medical Decision Making [facility] Narrative: 1729 71-year-old male presents with upper respiratory symptoms and abdominal pain x3 weeks worsening. Brought in by ambulance from Urgent Care. Physical examination with rhonchi throughout and diminished breath sounds bilaterally, worse on the left. Abdomen diffusely tender on palpation. Regular rate and rhythm. Neuro nonfocal. Global weakness appreciated. Concerns for possible pneumonia and UTI. Unlikely MO, PE as patient is anticoagulated. Patient without chest pain. Plan at this time is to obtain viral cultures, basic labs, lactic, blood cultures, UA, flu/COVID/RSV, chest x-ray, CT of the abdomen pelvis. Will give Rocephin and fluid hydration. Critical Care Time Critical Care Time Critical Care Time: No Discharge Plan Discharge Clinical Impression: Pneumonia Patient Disposition: Admitted As Inpatient
[2022-10-06 18:53] LABS: Basophils Percent Auto 0.2 % (0-2); Eosinophils Percent Auto 0.1 % (0-4); Hematocrit 37.2 % (42.0-52.0); Hemoglobin 12.1 g/dl (14.0-18.0); Imm Gran Abs Auto 0.07 X10*3/uL (0.00-0.03); Imm Gran Pct Auto 0.5 % (0.0-0.4); Lymphocytes Absolute Auto 0.5 X10*3/uL (1.2-4.9); Lymphocytes Percent Auto 3.6 % (20-40); MANUAL DIFF FLAG SCAN; Mean Corpuscular HGB Conc 32.5 g/dl (31.0-36.0); Mean Corpuscular Volume 101.4 fL (80.0-98.0); Mean Platelet Volume 9.2 fL (9.4-12.4); Monocytes Absolute Auto 1.5 X10*3/uL (0.1-1.2); Monocytes Percent Auto 11.9 % (2-11); Neutrophils Absolute Auto 10.8 x10*3/uL (2.0-8.3); Neutrophils Percent Auto 83.7 % (45-73); Platelet Count 299 X10*3/uL (160-400); Red Blood Count 3.67 X10*6/uL (4.60-5.80); Red Cell Distribution Width 17.5 % (11.0-16.0); SCAN SMEAR FLAG 1; White Blood Count 12.9 X10*3/uL (4.8-10.8)
[2022-10-06 19:15] LABS: Alanine Aminotransferase < 6 U/L (0-40); Albumin Level 3.1 g/dL (3.5-5.0); Alkaline Phosphatase 145 U/L (39-117); Anion Gap 15 (12-20); Aspartate Amino Transferase 6 U/L (5-37); Blood Urea Nitrogen 11 mg/dL (9-16); Calcium 8.9 mg/dL (8.4-10.2); Carbon Dioxide 28 mmol/L (22-29); Chloride 101 mmol/L (96-108); Creatinine Clr Calc Pharmacy 109.9; Estimated Glomerular Filt Rate > 60; Glucose Random 153 mg/dL (60-115); Magnesium 1.8 mg/dL (1.6-2.6); Potassium 4.5 mmol/L (3.3-5.1); Sodium 139 mmol/L (135-145); Total Protein 6.1 g/dL (6.5-8.0)
[2022-10-06 19:25] VITALS: BP 115/65; PULSE 88; RESP 20; TEMP 36.9; O2SAT 92
[2022-10-06 19:29] LABS: SLIDE REVIEW VERIFIED
[2022-10-06 19:33] LABS: Lactic Acid 2.9 mmol/L (0.5-2.0)
[2022-10-06 19:35] LABS: B Type Natriuretic Peptide 248 pg/mL (<100)
[2022-10-06 19:40] LABS: Bilirubin Total 0.8 mg/dL (0.0-1.0)
[2022-10-06] MEDS: cefTRIAXone sodium 1 GM in 0.9 % Sodium Chloride 50 ML IV (19:41)
[2022-10-06 20:19] LABS: Influenza A PCR NEGATIVE (Negative); Influenza B PCR NEGATIVE (Negative); Resp Syncy Virus RNA Qual PCR NEGATIVE (Negative); SARS COV2 PCR INHOUSE NEGATIVE (Negative)
--- NOTE | 2022-10-06 20:44 | P.HPHOSP_ITS ---
History of Present Illness Date of Service: 10/06/22 Chief Complaint: Dyspnea This is a 71-year-old male with pertinent history of opw-dezgwty-obgpjodek diabetes mellitus, mixed hyperlipidemia, essential hypertension, BPH, permanent atrial fibrillation on Eliquis, history of CVA who presents to the emergency department for evaluation of dyspnea. Patient states he has been feeling unwell for the last 3 weeks. Has been having subjective fever with chills and productive cough with yellowish sputum production. It was persistent and progressive. Patient stooled started having dyspnea, worse with exertion. Has fatigue and malaise. No sick contacts. Patient denies chest discomfort, palpitations, vomiting. Does endorse nausea. Has been having urinary frequency and urgency but it has been a chronic issue for him. Patient denies chest pain, palpitations, changes in urinary or bowel habits In the emergency department, imaging with left-sided consolidation and loculated left pleural effusion Review of Systems Constitutional: Constitutional: Reports chills, Reports fatigue, Reports fever(s) and Reports malaise Cardiovascular: Cardiovascular: Reports no additional cardiovascular complaints and Reports dyspnea on exertion Respiratory: Respiratory: Reports cough, Reports excessive phlegm production and Reports dyspnea on exertion Endocrine: Endocrine: Reports fatigue PMFSH Medical History Alcohol abuse Atrial fibrillation BPH (benign prostatic hyperplasia) Chronic atrial fibrillation Diabetic nephropathy Diverticulitis Hypercholesterolemia Hypertension Macrocytosis without anemia Osteoarthritis Overweight (BMI 25.0-29.9) Peripheral vascular disease Sepsis Tobacco abuse Type 2 diabetes mellitus with hyperglycemia Vitamin D deficiency Family History Father Cancer of back Son In good health Surgical History Colostomy status History of appendectomy History of colonoscopy History of hip replacement History of laparotomy History of surgery History of surgery Status post Bret procedure Social History Housing: House Alcohol intake: never Patient Tobacco Use Status: Former Tobacco user (two months ago) Cigarette Packs Per Day: 0.5 e-Cigarette/Vaping Use: Never Used Second Hand Smoke Exposure: No Advance Directives: No Advance Directives Information Provided: No service: No Current occupational status: retired Cognitive needs: No Hearing needs: No Vision needs: Yes Meds Allergies Allergy/AdvReac Type Severity Reaction Status Date / Time No Known Allergies Allergy Verified 10/06/22 15:01 Active Medications: Current Medications Acetaminophen (Acetaminophen 325 Mg Tablet) 650 mg PO Q6H PRN PRN Reason: Pain, Mild (Pain Scale 1-3) Albuterol/Ipratropium (Albuterol/Iprat 2.5/0.5mg 3 Ml Ampul.Neb) 3 ml INHALE RQ4H PRN PRN Reason: wheezing Dextrose (Dextrose 50 % 25 Gm/50 Ml Syringe) 25 gm IVPUSH Q15M PRN; Protocol PRN Reason: per Hypoglycemia Standing Ord. Enoxaparin Sodium (Enoxaparin Sodium 40 Mg/0.4 Ml Syringe) 40 mg SUBCUT Q24H [facility] Glucose (Glucose Gel 15 Gm Gel..Gram.) 15 gm PO Q15M PRN; Protocol PRN Reason: per Hypoglycemia Standing Ord. Ceftriaxone Sodium 1 gm/ (Sodium Chloride) 50 mls @ 100 mls/hr IV DAILY [facility] Insulin Human Lispro (Insulin Lispro 100 Unit/Ml 3 Ml Vial) 0 unit SUBCUT QIDACHS ANTHONY; Protocol Melatonin (Melatonin 3 Mg Tablet) 6 mg PO BEDTIME PRN PRN Reason: Insomnia Ondansetron HCl (Ondansetron Hcl 4 Mg/2 Ml Vial) 4 mg IVPUSH Q8H PRN PRN Reason: Nausea and Vomiting Pharmacy Consult (Consult Rx Perform Med Rec) 1 each MISCELLANE ONCE PRN PRN Reason: Consult order Sodium Chloride (0.9 % Sodium Chloride Flush 3 Ml Syringe) 3 ml IVFLUSH QSHIFT [facility] Home Medications Medication Instructions Recorded Confirmed Last Taken Type acetaminophen 325 mg tablet 650 mg PO Q8H PRN Pain 05/28/21 10/06/22 Unknown History (Tylenol) ascorbate calcium (vitamin C) 500 500 mg PO DAILY 10/15/21 10/06/22 10/06/22 History mg tablet Physical Exam Vital Signs and Narrative: Vital Signs: Last Vital Signs Temp 98.4 F 10/06/22 19:25 Pulse 88 10/06/22 19:25 Resp 20 10/06/22 19:25 BP 115/65 10/06/22 19:25 Pulse Ox 92 10/06/22 19:25 O2 Del Method 10/06/22 19:25 BMI result Body Mass Index 29.9 Middle-aged male lying in bed in no distress Neck supple, no JVD Irregularly irregular, S1-S2 heard Left-sided crackles without wheezing Abdomen soft nontender, no guarding, no rigidity Patient is awake, alert and oriented to self, place, time and person ; no focal motor deficit Psych: Normal mood Lower extremities with venous stasis changes Results Labs CBC and Chem 7: 10/06/22 18:41 10/06/22 18:41 Labs: Laboratory Results - last 24 hr 10/06/22 10/06/22 10/06/22 18:41 18:41 18:41 MCV 101.4 H MCH 33.0 MCHC 32.5 RDW 17.5 H Plt Count 299 MPV 9.2 L Immature Gran % (Auto) 0.5 H Neut % (Auto) 83.7 H Lymph % (Auto) 3.6 L Walker % (Auto) 11.9 H Eos % (Auto) 0.1 Baso % (Auto) 0.2 Lymph # (Auto) 0.5 L Walker # (Auto) 1.5 H Eos # (Auto) 0.0 Baso # (Auto) 0.0 Abs Immat Gran (auto) 0.07 H Absolute Neuts (auto) 10.8 H Absolute Nucleated RBC 0.000 Nucleated RBC % (auto) 0.0 Smear Tech's Comments VERIFIED Anion Gap 15 Estim Creat Clear Calc 109.9 Estimated GFR > 60 Random Glucose 153 H Lactic Acid 2.9 H* Calcium 8.9 Magnesium 1.8 Total Bilirubin 0.8 AST 6 ALT < 6 Alkaline Phosphatase 145 H D B-Natriuretic Peptide Total Protein 6.1 L Albumin 3.1 L Influenza Type A (PCR) Influenza Type B (PCR) RSV RNA Qual (PCR) SARS-CoV-2 RNA (RT-PCR) 10/06/22 10/06/22 18:41 19:33 MCV MCH MCHC RDW Plt Count MPV Immature Gran % (Auto) Neut % (Auto) Lymph % (Auto) Walker % (Auto) Eos % (Auto) Baso % (Auto) Lymph # (Auto) Walker # (Auto) Eos # (Auto) Baso # (Auto) Abs Immat Gran (auto) Absolute Neuts (auto) Absolute Nucleated RBC Nucleated RBC % (auto) Smear Tech's Comments Anion Gap Estim Creat Clear Calc Estimated GFR Random Glucose Lactic Acid Calcium Magnesium Total Bilirubin AST ALT Alkaline Phosphatase B-Natriuretic Peptide 248 H Total Protein Albumin Influenza Type A (PCR) NEGATIVE Influenza Type B (PCR) NEGATIVE RSV RNA Qual (PCR) NEGATIVE SARS-CoV-2 RNA (RT-PCR) NEGATIVE Imaging Radiologist's Impressions: Impressions Chest X-Ray 10/06/22 17:49 IMPRESSION: Increased opacification of the retrocardiac region and left lower lobe compared to 10/02/2021 which is nonspecific and could be associated with worsening atelectasis or consolidation. Chronic volume loss of the left lung with a chronic left-sided pleural effusion. A follow-up examination with a chest CT with IV contrast is recommended to rule out underlying lesions. Assessment and Plan (1) Pneumonia: Status: Acute (2) Permanent atrial fibrillation: Status: Acute (3) CVA (cerebral vascular accident): Status: Acute (4) Hypertension: Qualifiers: Hypertension type: essential hypertension Qualified Code(s): I10 - Essential (primary) hypertension Status: Acute (5) BPH (benign prostatic hyperplasia): Status: Acute (6) Hypercholesterolemia: Status: Acute (7) Diabetes mellitus: Status: Acute Plan This is a 71-year-old male with pertinent history of rat-kqnueix-wzanxunar diabetes mellitus, mixed hyperlipidemia, essential hypertension, BPH, permanent atrial fibrillation on Eliquis, history of CVA who presents to the emergency department for evaluation of dyspnea. #. Acute dyspnea due to: #. Sepsis due to community-acquired pneumonia and complicated (loculated) pleural effusion -Will admit patient and initiate empiric IV antibiotics. Lactic acid and blood cultures obtained. Resuscitated with IV crystalloids in the ER -consulted thoracic surgery for catheter or tube thoracostomy drainage of pleural fluid #. Type A lactic acidosis: Resuscitating with IV crystalloids #. Permanent atrial fibrillation on Eliquis: Rate controlled in the ER #. History of CVA: Continue statin. Not on antiplatelet agent #. Wik-avlppit-jirqmycix type 2 diabetes mellitus: Hold metformin in the setting of lactic acidosis. Initiate Accu-Cheks with sliding scale insulin before meals and bedtime Med rec pending DVT prophylaxis: Hold Eliquis until surgical evaluation Full code Diabetic diet Admit as inpatient and will require two night minimum hospital stay for IV antibiotics Quality Stroke Does the patient have a stroke diagnosis?: No VTE Prior VTE?: No VTE Risk Level:: Medical - moderate - high VTE Device Contraindication: Treatment Not Indicated VTE Drug Contraindication: N/A - Med Ordered
[2022-10-06 20:50] LABS: Reflex Lactate? Lactic Acid Added
[2022-10-06] MEDS: iohexoL 350 MG/ML 100 ML INFUS..BTL IV (20:50)
[2022-10-06 21:28] LABS: ~Lactic Acid-LAB USE ONLY 2.7 mmol/L (0.5-2.0)
--- NOTE | 2022-10-06 21:37 | PHA.MEDREC ---
Pharmacy Consult ? Medication Reconciliation Pharmacy has completed the medication reconciliation. Pt states he should be taking metformin but hasn't filled it in a while.
[2022-10-06] MEDS: Ampicillin Sodium/Sulbactam Na 3 GM in 0.9 % Sodium Chloride 100 ML IV (22:11)
[2022-10-06 22:41] LABS: Glucose, Whole Blood 121 mg/dL (60-115)
--- NOTE | 2022-10-06 22:48 | MHC.CM.PN ---
IMM 10/06. Lives alone. Partner 2 months ago-massive heart attack. Pt states her son has been very helpful/HCP Brice Lin ([phone]). HCP and MOLST completed. Uploaded into [facility] and [facility]. Copies of HCP given. 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 Uses cane/walker. Moderna x5. D/C plan: home ? [facility]. Assess at rounds. No referrals placed at this time. Pt will arrange transport home. CM will follow for discharge planning.
[2022-10-06 23:12] LABS: Reflex Lactate? 2 Y
[2022-10-06 23:37] VITALS: BP 143/85; PULSE 119; RESP 20; TEMP 36.4; O2SAT 96
--- NOTE | 2022-10-06 23:49 | ECG_ITS ---
Test Reason : TACHACARDIA Blood Pressure : / mmHG Vent. Rate : 139 BPM Atrial Rate : 000 BPM P-R Int : 000 ms QRS Dur : 078 ms QT Int : 268 ms P-R-T Axes : 000 020 244 degrees QTc Int : 407 ms Atrial fibrillation with rapid ventricular response Low voltage QRS Nonspecific ST and T wave abnormality Abnormal ECG When compared with ECG of 23-APR-2021 20:40, Criteria for Septal infarct are no longer Present Referred By: Citlali Vaughn Electronically Signed By:STEPHANIE LEE MD
[2022-10-07] VITALS (38 sets, daily range): BP systolic 77–165; BP diastolic 47–105; PULSE 78–143; RESP 12–46; TEMP 34–38.1; O2SAT 86–100; BMI 29.9
[2022-10-07] MEDS: dilTIAZem HCL 50 MG/10 ML VIAL 20 MG IVPUSH (00:02)
[2022-10-07 00:07] LABS: ~Lactic Acid-LAB USE ONLY 3.1 mmol/L (0.5-2.0)
--- NOTE | 2022-10-07 00:07 | PC.NURSE ---
Patient became tachycardic with A-fib noted on medical education coordinator. Patient denies chest pain/nausea/diaphoresis. EKG obtained. Dr. Vaughn notified. Diltiazem 20 mg IV administered with improvement in HR noted 104-110.
[2022-10-07] MEDS: 0.9 % Sodium Chloride 1,000 ML 999 ML IV (00:44)
--- NOTE | 2022-10-07 01:16 | PC.NURSE ---
HR 120-136. Dr. Vaughn notified. ordered Diltiazem CD 300 mg PO. Per the goal is to maintain heart rate under 140.
[2022-10-07 01:20] LABS: Appearance Urine Clear; Color Urine Yellow; Glucose Urine UA Negative (Negative); Leukocyte Esterase Urine Negative (Negative); Nitrite Urine Negative (Negative); PH 5.5 (5.0-9.0); Specific Gravity - Urine >= 1.030 (1.005-1.025); UMIC TRIGGER UACC YES; Urine Blood Small (1+) (Negative); Urine Ketones Trace mg/dL (Negative); Urine Protein Trace mg/dL (Neg-Trace)
[2022-10-07 01:25] LABS: Bacteria Urine Trace (None Seen); Hyaline Casts Urine 0-2 /LPF (0-2); WBC Urine 0-5 /HPF (0-5)
[2022-10-07] MEDS: dilTIAZem HCL CD 300 MG CAP.ER.24H PO (01:26)
--- NOTE | 2022-10-07 02:55 | PC.NURSE ---
Patient received Xopenex treatment for wheezing. O2 Sat 92 on 3 PM NC. RR 29. HR 100-130. Patient repositioned in bed. Environmental service contacted for a hospital bed to improve patients comfort.
--- NOTE | 2022-10-07 03:04 | PC.NURSE ---
pt is alert and orientated x3 i offered to put pt in a almita but he refused also to take his pants off he refused, i attempted to provide nadja care he refused nurse notified
--- NOTE | 2022-10-07 03:27 | PC.NURSE ---
Nurse to nurse given. Pt to be transported to s3 via stretcher by medical technician assistant.
--- NOTE | 2022-10-07 03:35 | PC.NURSE ---
Pt transfer to unit cancelled, will stay in ED until available bed opens on tele floor.
[2022-10-07] MEDS: Ampicillin Sodium/Sulbactam Na 3 GM in 0.9 % Sodium Chloride 100 ML IV (03:45)
[2022-10-07] MEDS: propofoL 200 MG/20 ML VIAL 50 MG IVPUSH (03:55)
[2022-10-07] MEDS: Morphine Sulfate 2 MG/ML CARTRIDGE 1 MG IVPUSH (04:11)
[2022-10-07] MEDS: Furosemide 40 MG/4 ML VIAL IVPUSH (04:19)
--- NOTE | 2022-10-07 04:30 | PC.NURSE ---
PT transfered from stretcher to hospital bed, PT became hypoxic and tachypnic RR 40, perioral cyanosis noted, LS crackles and wheezing throughout. Provider notified, respiratory therapist at bedside. PT placed on bipap. Meds given as documented.
[2022-10-07 04:32] LABS: ABG Base Excess -5.7 mmol/L; ABG HCO3 26 mmol/L (22-26); ABG pCO2 89 mmHg (32-45); ABG pH 7.07 (7.35-7.45); ABG pO2 87 mmHg (83-108)
--- NOTE | 2022-10-07 04:38 | PC.NURSE ---
ABG collected by RT, results tiger texted Dr Vaughn. Plan to repeat ABG in 1 hour, if no improvement refer pt to ICU.
--- NOTE | 2022-10-07 04:55 | PM.EVENT ---
Event Note Date of Service: 10/07/22 Event Note: #Patient had an episode of AFib with RVR earlier in the night. Administered IV diltiazem and rate was controlled after that. #Was called by the nurse around 4am that as the patient was getting transferred from bed stretcher to hospital bed, he developed significant dyspnea and was breathing 40 times a minute. Patient was with bilateral crackles in lower lobes and with significant wheezing. Obtained ABG which revealed respiratory acidosis, pH 7.07 and pCO2 89. Ordered Chest Xray. Administered breathing treatment and initiated BiPAP. Also administered Lasix IV 40 mg and solumedrol 125mg IV. Patient with MOLST form stating full code. Consulted ICU for further management.
[2022-10-07] MEDS: methylPREDNISolone Sod Succ 125 MG/2 ML VIAL IVPUSH (05:11)
[2022-10-07] MEDS: dilTIAZem HCL 50 MG/10 ML VIAL 10 MG IVPUSH ×2 (05:11→06:50)
[2022-10-07] MEDS: Morphine Sulfate 2 MG/ML CARTRIDGE IVPUSH (05:15)
[2022-10-07 05:16] LABS: Basophils Absolute Auto 0.1 X10*3/uL (0.0-0.2); Basophils Percent Auto 0.3 % (0-2); Eosinophils Percent Auto 0.1 % (0-4); Hematocrit 40.4 % (42.0-52.0); Hemoglobin 12.7 g/dl (14.0-18.0); Imm Gran Abs Auto 0.21 X10*3/uL (0.00-0.03); Imm Gran Pct Auto 1.1 % (0.0-0.4); Lymphocytes Absolute Auto 0.9 X10*3/uL (1.2-4.9); Lymphocytes Percent Auto 4.6 % (20-40); MANUAL DIFF FLAG SCAN; Mean Corpuscular HGB Conc 31.4 g/dl (31.0-36.0); Mean Corpuscular Hemoglobin 32.6 pg (27.0-33.0); Mean Corpuscular Volume 103.9 fL (80.0-98.0); Mean Platelet Volume 9.2 fL (9.4-12.4); Monocytes Absolute Auto 2.2 X10*3/uL (0.1-1.2); Monocytes Percent Auto 11.2 % (2-11); Neutrophils Absolute Auto 16.2 x10*3/uL (2.0-8.3); Neutrophils Percent Auto 82.7 % (45-73); Platelet Count 381 X10*3/uL (160-400); Red Blood Count 3.89 X10*6/uL (4.60-5.80); Red Cell Distribution Width 17.7 % (11.0-16.0); SCAN SMEAR FLAG 1; White Blood Count 19.6 X10*3/uL (4.8-10.8)
--- NOTE | 2022-10-07 05:30 | W.PM.CCHP ---
Procedures Date of Service Date of Service: 10/07/22 Intubation Consent for Procedure: Emergent-no informed consent obtained Time out performed: Yes Sedative: propofol Mg given: 50 Paralytic: rocuronium Mg given: 30 Laryngoscope: fiber optic video scope ET tube size: 8 ET tube uncuffed: Yes Tube secured depth (cm): 24 Tube secured location: lips (After x-ray adjusted to 26 cm at the lip) Tube placement confirmation: visualized tube passing through cords, equal breath sounds bilaterally and no breath sounds over epigastrium Patient tolerated procedure: well and no complications Intubation complications: none
[2022-10-07 05:32] LABS: Lactic Acid 2.4 mmol/L (0.5-2.0)
[2022-10-07 05:39] LABS: B Type Natriuretic Peptide 486 pg/mL (<100)
[2022-10-07 05:48] LABS: SLIDE REVIEW VERIFIED
--- NOTE | 2022-10-07 06:00 | PC.NURSE ---
VS: P 134, O2 sat 100% on mech vent, BP 104/63 MAP 77.
--- NOTE | 2022-10-07 06:30 | PC.NURSE ---
VS: P 129, O2 sat 92% on mech vent, BP 135/77 MAP 97.
--- NOTE | 2022-10-07 07:00 | PC.NURSE ---
VS: P 127, BP 130/76 MAP 94. RR 31
--- NOTE | 2022-10-07 07:06 | PC.NURSE ---
Wire Machine Operator RN: Pt was given 1mg of Dilaudid at 0535 am, 50 mg of propofol, 30 mg rock, as order by the MD. Pt was intubated at 0542 am size 8 at a lip at 24 the placement was confirmed by the colormetric. The procedure was conducted by the RT Acevedo and Md. Pt was given norepi drip and 20 mcg/kg/min propofol as order by the MD. Initiated a x-ray image one view pr MD order. RT acevedo advanced tube d/t the result on the images. at 0615 am initiated central line. For further information please referred to patient chart/reprot.
--- NOTE | 2022-10-07 07:08 | W.PM.CCCN ---
History of Present Illness Data of Consult Service Date: 10/07/22 Requesting physician: Rolf Vaughn Primary Care Provider: Willa Rubin MD HPI Reason for consult: Hypoxia respiratory failure with hypercapnia/sepsis HPI:? 71-year-old male with a history of type 2 diabetes insulin dependent, hyperlipidemia, BPH, hypertension, atrial fibrillation on Eliquis with prior history of stroke, COPD, ongoing smoker, alcohol abuse, BPH, prior sepsis, vitamin-D deficiency, osteoarthritis, anemia of chronic disease, diverticulitis, diabetic nephropathy with intact renal function among other things who presented to the emergency room with complaints of shortness of breath and a feeling of unwellness for approximately 2-3 weeks but over the last couple of days he has reported some fever and chills with a yellow sputum productive cough. ? In the ER the patient was noted to be normotensive, afebrile and not hypoxic, his initial workup was not significantly revealing as he only had a white count of 12.9, H&H of 12.1 and 37.2 respectively, his electrolytes were unremarkable as was his renal function.? Initial lactic acid was 2.9.? BNP 248, albumin 3.1.? His x-ray did show significant left lung pulmonary disease suspicious for pneumonia, he did have a follow-up CT which showed loculated left to side pleural effusion with fluid collection with thickening of the wall and multiple air droplets present within the collection which could be due to bronchopleural fistula versus infection although the fluid collection is described as decreased since April of last year.? However the air within the collection is new.? Consolidation of left lung base with volume loss left hemithorax.? Soft tissue density around the left hilum likely due to atelectasis.? 6 mm nodule on the right upper lung unchanged from prior studies. ? Patient was given IV fluids per sepsis protocol and started on antibiotics, admitted to the floor.? The patient had been boarding in the emergency room and I was called for a consult around 5 in the morning due to the patient's worsened respiratory capacity, tachypnea and a concerning blood gas which showed a pH of 7.07 with pCO2 of 89.? On arrival to the emergency room, it was eminent the patient was in significant respiratory distress, quite tachypneic at 45-48 breaths per minute, obtunded. ?His AFib was uncontrolled although his blood pressure was maintaining but it is eminent that the patient needs to be intubated and needs Critical Care.? At this point I started my care right in the ER.? Please see the plan of this note for details. ? ROS:? UNABLE TO OBTAIN ? Past Medical History:? As above ? Past Surgical History:? Appendectomy Colonoscopy History of hip replacement Laparotomy Status post Bret procedure ? Family history:? Dad had cancer of the back Mom had mental health and substance use disorders. ? Social History: Reportedly and per chart the patient lives in a house, although it is mentioned that he does not drink alcohol, in other charts it is mentioned that the patient does use alcohol significantly.? He is a former smoker although the quantity is not known, I presume that he has a very heavy smoker for his significant staining of the distal right index and middle digits. ? CODE STATUS:? Full code ? Allergies:? No known drug allergies ? Home Medications:? see Med Rec ? PHYSICAL EXAM: 165/93, 125, 43, 91% on BiPAP 18/8 with FiO2 of 100% ? ? General:? In significant respiratory distress, accessory muscle usage and obtunded ? Skin:? Multiple excoriations of the intra-abdominal folds of the abdomen, bilateral lower extremity excoriated areas with stasis dermatitis ulcers. ? HEENT:? Head is normocephalic, atraumatic, minimally reactive pupils.? 2+ JVD at 30 degree angle. ? Cardiac:? Irregularly irregular, 130-140 beats per minute.? No rubs, murmurs or gallops. ? Pulmonary:? Diffuse crackles bilaterally with almost absent lung sounds on the left side. ? Abdomen:? Protuberant, positive bowel sounds in all 4 quadrants.? Soft ? Musculoskeletal:? No bony abnormalities, on passive range of motion at the major joints there is no cogwheeling or crepitus, no calf asymmetry, 1+ pitting edema of the distal lower extremities. ? Neurologic:? As above otherwise unable to assess ? Vascular:? 2+ pulses upper and lower extremities distally. ? SIGNIFICANT LABORATORY DATA:? As above ? REVIEW OF IMAGES: ? Initial chest x-ray Increased opacification of the retrocardiac region and left lower lobe compared to 10/02/2021 which is nonspecific and could be associated with worsening atelectasis or consolidation. ? CT abdomen pelvis IMPRESSION: 1.? No acute findings identified in the abdomen/pelvis. 2.? Slightly nodular hepatic contour, for which mild changes of cirrhosis cannot be excluded. 3.? Partially visualized fluid collection at the basal left hemithorax also containing a small amount of gas, which will be better assessed on accompanying dedicated chest CT. ? Chronic volume loss of the left lung with a chronic left-sided pleural effusion. ? A follow-up examination with a chest CT with IV contrast is recommended to rule out underlying lesions. ? Repeat chest x-ray IMPRESSION: *Moderate left pleural effusion left base airspace disease grossly unchanged compared with 10/06/2022 5:44 PM. ? Post intubation x-ray IMPRESSION: *Endotracheal tube terminating 5 cm superior to the radha. *Unchanged left pleural effusion left base atelectasis and/or consolidation. Findings could represent pneumonia with a parapneumonic effusion. *Findings suspicious for mild pulmonary vascular congestion. ? EKG REVIEW: ?Atrial fibrillation with rapid ventricular response 140 beats per minute.? Nonspecific ST and T-wave abnormalities, age-indeterminate changes.? QTC 268.? No comparison available. ? ASSESSMENT: 1. Acute hypoxic respiratory failure with hypercapnia 2. Lactic acidosis likely due metformin intake and concomitant sepsis 3. Suspected left lung pneumonia with Significant left pleural effusion rule out empyema with near complete left lung collapse 4. Acute pulmonary edema rule out underlying CHF 5. Atrial fibrillation with rapid ventricular response 6. Uncontrolled hypertension 7. Chronic type 2 diabetes 8. Chronic 6 mm nodule of the right upper lobe 9. Hypoalbuminemia 10. Multiple unstageable wounds of the bilateral lower extremities consistent with stasis dermatitis as well as multiple excoriated areas of the abdominal intertriginous folds ? PLAN OF CARE: Patient is to be on BiPAP which I do not think is helping at this point, he appears to be in significant distress, quite tachypneic, using accessory muscles and obtunded, I believe the patient needs to be intubated emergently due respiratory distress and tachypnea; morphine or Dilaudid will be given for now while we prepp for intubation. ?I would not continue to give IV fluids for I am concerned about worsening pulmonary edema.? Will order stat labs including lactic acid, BNP and coagulation panel. Patient was successfully intubated is in the ER by me, please see procedure note for details, central line was also placed.? Given the hypotension after propofol induction, Levophed was started.? Luna catheter requested, Cardizem drip, will continue with propofol for sedation. ?The patient will need interventional radiology consult or thoracic surgery consult for thoracentesis for both diagnostic and therapeutic work, with fluid analysis, sputum culture Gram stain ordered, I will discontinue Unasyn and place him on Zosyn and vancomycin. ?Monitor close I's and O's, continue with IV Lasix, if Cardizem does not work, beta-blockers or amiodarone, I do no think the patient is having COPD exacerbation therefore further bronchoconstriction by beta-blockers is not a concern at this point.? Hold metformin.? Keep the head of the bed at 30-45 degree angle to avoid aspiration, antiemetics and antipyretics p.r.n. ? GI PROPHYLAXIS: ?IV ppi avoid stress ulcers DVT PROPHYLAXIS:? Pneumatic stockings only for now for anticipate he will need a thoracentesis. ? Critical care time used for critical evaluation of this patient, diagnosis, treatment and coordination of care, review her records and documentation TOTAL CRITICAL CARE TIME? 120 MIN . discussion and coordination with consultants, completely separate from any procedures performed. Patient's care was discussed in detail with Dr. Velazquez.? He is aware of all the above as well as the plan of care for this patient. ? [facility] Past Medical History Medical History (Updated 10/07/22 @ 16:43 by NIRMAL Robertson) Alcohol abuse Atrial fibrillation BPH (benign prostatic hyperplasia) Chronic atrial fibrillation Diabetic nephropathy Diverticulitis Hypercholesterolemia Hypertension Macrocytosis without anemia Osteoarthritis Overweight (BMI 25.0-29.9) Peripheral vascular disease Pneumonia Sepsis Tobacco abuse Type 2 diabetes mellitus with hyperglycemia Vitamin D deficiency Family History Family History Father Cancer of back Son In good health Surgical History Surgical History Colostomy status History of appendectomy History of colonoscopy History of hip replacement History of laparotomy History of surgery History of surgery Status post Bret procedure Social History Social History Housing: House Alcohol intake: never Patient Tobacco Use Status: Former Tobacco user (two months ago) Cigarette Packs Per Day: 0.5 e-Cigarette/Vaping Use: Never Used Second Hand Smoke Exposure: No service: No Current occupational status: retired Cognitive needs: No Hearing needs: No Vision needs: Yes Meds Allergies Allergy/AdvReac Type Severity Reaction Status Date / Time No Known Allergies Allergy Verified 10/06/22 15:01 Active Medications: Current Medications Acetaminophen (Acetaminophen 325 Mg Tablet) 650 mg PO Q6H PRN PRN Reason: Pain, Mild (Pain Scale 1-3) Dextrose (Dextrose 50 % 25 Gm/50 Ml Syringe) 25 gm IVPUSH Q15M PRN; Protocol PRN Reason: per Hypoglycemia Standing Ord. Furosemide (Furosemide 20 Mg/2 Ml Vial) 20 mg IVPUSH BID@0900,1800 ANTHONY; Protocol Glucose (Glucose Gel 15 Gm Gel..Gram.) 15 gm PO Q15M PRN; Protocol PRN Reason: per Hypoglycemia Standing Ord. Propofol (Diprivan) 1,000 mg in 100 mls @ 0 mls/hr IVCONT .Q0M ANTHONY; Protocol Norepinephrine Bitartrate (Levophed) 8 mg in 250 mls @ 0 mls/hr IVCONT .Q0M ANTHONY; Protocol Diltiazem HCl 125 mg/ Sodium (Chloride) 125 mls @ 0 mls/hr IVCONT .Q0M ANTHONY; Protocol Piperacillin Sod/Tazobactam (Sod 4.5 gm/ Sodium Chloride) 100 mls @ 200 mls/hr IV Q8H ANTHONY Insulin Human Lispro (Insulin Lispro 100 Unit/Ml 3 Ml Vial) 0 unit SUBCUT QIDACHS ANTHONY; Protocol Last Admin: 10/06/22 23:09 Dose: Not Given Levalbuterol HCl (Levalbuterol Hcl 1.25 Mg/0.5 Ml Vial.Neb) 1.25 mg INHALE Q3H PRN PRN Reason: wheezing Last Admin: 10/07/22 04:05 Dose: 1.25 mg Melatonin (Melatonin 3 Mg Tablet) 6 mg PO BEDTIME PRN PRN Reason: Insomnia Morphine Sulfate (Morphine Sulfate 2 Mg/Ml Cartridge) 2 mg IVPUSH Q2H PRN; Protocol PRN Reason: Dyspnea Last Admin: 10/07/22 05:15 Dose: 2 mg Ondansetron HCl (Ondansetron Hcl 4 Mg/2 Ml Vial) 4 mg IVPUSH Q8H PRN PRN Reason: Nausea and Vomiting Pantoprazole Sodium (Pantoprazole Sodium 40 Mg/10 Ml Vial) 40 mg IVPUSH DAILY@0630 [facility] Pharmacy Consult (Consult Rx Perform Med Rec) 1 each MISCELLANE ONCE PRN PRN Reason: Consult order Sodium Chloride (0.9 % Sodium Chloride Flush 3 Ml Syringe) 3 ml IVFLUSH QSHIFT [facility] Last Admin: 10/07/22 00:11 Dose: Not Given Home Medications Medication Instructions Recorded Confirmed Last Taken Type acetaminophen 325 mg tablet 650 mg PO Q8H PRN Pain 05/28/21 10/06/22 Unknown History (Tylenol) ascorbate calcium (vitamin C) 500 500 mg PO DAILY 10/15/21 10/06/22 10/06/22 History mg tablet Physical Exam Vital Signs: Vital Signs: Last Vital Signs Temp 97.6 F 10/06/22 23:37 Pulse 125 H 10/07/22 04:28 Resp 46 H 10/07/22 05:15 BP 165/93 H 10/07/22 04:28 Pulse Ox 91 L 10/07/22 04:28 O2 Del Method 10/07/22 04:28 FiO2 40 10/07/22 06:00 BMI result Body Mass Index 29.9 Results Labs CBC & Chem 7: 10/07/22 05:09 10/07/22 19:19 Labs: Short CBC 10/06/22 10/07/22 Range/Units 18:41 05:09 WBC 12.9 H 19.6 H (4.8-10.8) X10*3/uL Hgb 12.1 L 12.7 L (14.0-18.0) g/dl Hct 37.2 L 40.4 L (42.0-52.0) % Plt Count 299 381 D (160-400) X10*3/uL BMP 10/06/22 18:41 Sodium 139 Potassium 4.5 Chloride 101 Carbon Dioxide 28 BUN 11 Creatinine 0.68 Calcium 8.9 Liver Function 10/06/22 Range/Units 18:41 Total Bilirubin 0.8 (0.0-1.0) mg/dL AST 6 (5-37) U/L ALT < 6 (0-40) U/L Alkaline Phosphatase 145 H D (39-117) U/L Albumin 3.1 L (3.5-5.0) g/dL Urine 12/07/22 Range/Units 01:11 Urine Color Yellow Urine Appearance Clear Urine pH 5.5 (5.0-9.0) Ur Specific [place] >= 1.030 H (1.005-1.025) Urine Protein Trace (Neg-Trace) mg/dL Urine Glucose (UA) Negative (Negative) mg/dL
--- NOTE | 2022-10-07 07:08 | W.PM.CCHP ---
Procedures Date of Service Date of Service: 10/07/22
[2022-10-07 07:15] LABS: Reflex Lactate? Lactic Acid Added
[2022-10-07] MEDS: HYDROmorphone HCl 1 MG/ML SYRINGE IVPUSH (07:18)
[2022-10-07] MEDS: Rocuronium Bromide 50 MG/5 ML VIAL 30 MG IVPUSH (07:22)
[2022-10-07] MEDS: fentaNYL citrate/NS 1,000 MCG/100 ML PLAST..BAG 5 MCG IVCONT (07:48)
[2022-10-07 08:04] LABS: Glucose, Whole Blood 183 mg/dL (60-115)
[2022-10-07] MEDS: dilTIAZem HCL 125 MG in 0.9 % Sodium Chloride 100 ML 10 MG IVCONT (08:08)
--- NOTE | 2022-10-07 08:14 | PC.NURSE ---
this nurse assumed care at 7am for this patient, pt on norepi, propofol at 30 upon my arrival, lt neck central line had been placed, rt at bedside pt just vented, this nurse placed a temp sensing torres cath, this nurse started a fentanyl drip at 50mcg/hr, dilt drip at 10 mg/hr, pt vitals- o2 sats currently running 88-90% on vent, RT is aware/dr stemp okd per RT, OG tube placed-no xray performed for placement.
[2022-10-07 08:33] LABS: Anion Gap 16 (12-20); Blood Urea Nitrogen 12 mg/dL (9-16); Calcium 8.5 mg/dL (8.4-10.2); Carbon Dioxide 20 mmol/L (22-29); Chloride 106 mmol/L (96-108); Creatinine Clr Calc Pharmacy 81.2; Estimated Glomerular Filt Rate > 60; Glucose Random 191 mg/dL (60-115); Potassium 4.3 mmol/L (3.3-5.1); Sodium 138 mmol/L (135-145)
--- NOTE | 2022-10-07 08:33 | PC.NURSE ---
vitals hr 125, O2 sat vented 89%, bp 108/74, rr 24
[2022-10-07 08:39] LABS: INTERNATIONAL NORM RATIO 1.4 (0.9-1.1); Prothrombin Time 15.7 SEC (10.0-13.1)
[2022-10-07] MEDS: propofoL 1,000 MG/100 ML VIAL 16.54 MG IVCONT ×3 (09:00→15:44)
[2022-10-07 09:20] LABS: Cancel Lactic Acid Canceled
[2022-10-07 09:21] LABS: Reflex Lactate? 2 N
[2022-10-07] MEDS: Furosemide 20 MG/2 ML VIAL IVPUSH (10:09)
[2022-10-07] MEDS: Piperacillin Sodium/Tazobactam 4.5 GM in 0.9 % Sodium Chloride 100 ML IV ×3 (10:21→20:26)
--- NOTE | 2022-10-07 10:52 | PM.SEPBOLA3 ---
Sepsis Bolus Exclusion Sepsis Bolus Exclusion Date of Occurrence: 10/07/22 This patient met severe sepsis criteria due to the following condition(s):: Hypotension In my clinical judgement the administration of 30 ml/kg of crystalloid would be detrimental to this patient due to the patient's following conditions:: Concern for fluid overload Replace the 30 mls/kg with (*zero amount not acceptable): *Note: One of the reed must be documented Colloids amount given in mls:: 1,000
--- NOTE | 2022-10-07 10:56 | CA_ITS ---
Transthoracic Echocardiogram Patient (Last, First, Middle): Florentino Holder, Gender: Male Date of : 1950 Age: 71 Procedure Date: 10/07/2022 Procedure Type: Transthoracic Echocardiogram Location: ICU Height: 175.26 cm Weight: 91.63 kg BSA: 2.07 m2 Heart Rate: 94 bpm BP: 77 / 51 mmHg Electrical Prospecting Engineer: EDWARDO Referring MD: Rashi Velazquez MD Finishing Room Supervisor: Darin Liu MD Symptoms: Refractory shock. RV size, IVC. Study Quality: Adequate ECG Rhythm: Atrial flutter Conclusions: - 1. Low normal LV systolic function by visual estimation 2. Moderately dilated right ventricle 3. Mildly elevated right atrial pressures based on IVC size and collapsibility 4. No gross pericardial effusion Findings Left Ventricle Normal left ventricular cavity size. The left ventricular systolic function is low normal. The visually estimated ejection fraction is between 50-55%. Right Ventricle Moderately increased right ventricular cavity size. Tricuspid Valve The right ventricular systolic pressure is normal. Mildly elevated right atrial pressure. There is no evidence of pulmonary hypertension. Venous The inferior vena cava is mildly dilated and collapses less than 50% with inspiration. Pericardium/Pleural There is no evidence of pericardial effusion. Prior Study Comparison Changes noted compared to prior study dated: 03/10/2022. IVC pressures might be slightly elevated. RV is enlarged. Due to technical issues there is delay in reading and reporting Measurements 2D Linear Measurements LVIDs: 3.05 2.0-3.6 cm Tricuspid Valve TR Pk Joshua: 2.31 TR Pk Grad: 21.00 RA Press: 15.00 RVSP: 36.00 Updated in Other Vendor System with Status of Final Darin Liu MD electronically signed on 10/08/2022 3:04:36 PM with status of Final
--- NOTE | 2022-10-07 11:22 | PHA.PROG ---
Admission Date/Time: October 06, 2022 20:40 Indication: Sepsis Weight in k.9 kg Adjusted body weight in K.18 [place] body weight in K.7 kg Obesity Dosing Indication % IBW: 129 % Serum Creatinine - Last 168 Hours 10/06/22 10/07/22 18:41 08:05 Creatinine 0.68 0.92 Estimated CrCl and GFR - Last 168 Hours 10/06/22 10/07/22 18:41 08:05 Estim Creat Clear Calc 109.9 81.2 Estimated GFR > 60 > 60 Vancomycin Loading Dose: 2000 mg Current Vancomycin Dosing Regimen: 1000 mg Q12H Date and Time for next Vancomycin Level to be drawn: 10/08 @ 1999 Pharmacist Comments on Vancomycin Plan: patient received a proper loading dose of 2000 mg at 1010 on 10/07 Maintenance dose vancomycin 1000 mg Q12H is scheduled to start 10/07 @ 2200. Expected AUC 510 with a trough of 15.2 Trough to be drawn prior to 4th dose Pharmacy will monitor renal function daily Vancomycin dosing will take advantage of [employer] as a clinical decision support tool that uses Bayesian modeling to calculate individual patient's pharmacokinetic parameters and forecast the patient's drug concentration time course with the target goal AUC 24 range of 400 - 600 mg/L/hr.
[2022-10-07 11:23] LABS: Glucose, Whole Blood 147 mg/dL (60-115)
[2022-10-07 11:46] LABS: VBG Base Excess -6.9 mmol/L; VBG HCO3 19 mmol/L (22-26); VBG pCO2 42 mmHg; VBG pH 7.26 (7.32-7.43); VBG pO2 49 mmHg
[2022-10-07] MEDS: Albumin Human 25 % 100 ML 200 ML IV (11:48)
[2022-10-07] MEDS: Chlorhexidine Gluc Oral Rinse 15 ML MOUTHWASH BUCCAL ×2 (15:02→20:27)
[2022-10-07] MEDS: 0.9 % Sodium Chloride Flush 3 ML SYRINGE IVFLUSH (15:03)
--- NOTE | 2022-10-07 15:07 | PM.CCPN ---
Subjective Subjective Date of Service: 10/07/22 Interval History: Mr. Holder was admitted earlier to ICU with acute respiratory failure secondary to left-sided pneumonia with large loculated pleural effusion, possible/likely empyema. According to our [facility] records, the patient initially presented to the [place] ED in April of 2021 with a similar picture.? At that time, the patient had a large simple left-sided pleural effusion.? Because we had no thoracic coverage at that time, the patient was transferred to [facility].? He was in the hospital there for 2 weeks (04/24-05/07/2021).? He had his left pleural effusion drained.? The drainage was bloody, negative for malignancy and negative for infection.? During that admission, the patient was seen by thoracic surgery there and was thought to have persistent lung trapping and effusion.? 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 He was given tPA with significant symptomatic improvement, almost back to baseline.? He therefore did not undergo the planned VATS procedure.? He was ultimately discharged to rehab with PleurX-type catheter. I don?t have any f/u from that, but our records show that the patient has had a number of subsequent outpatient visit for general medical f/u with cardiology (chronic Afib and HTN) and with his PMD (diabetes and health maint).? I reviewed those records, there is nothing remarkable in the notes, including in his last outpatient primary care health maint visit of 09/10/22. I spoke to the patient?s HCP (Demar, cell [phone]) at length about current situation and what happened at [facility] last year.? He told me that Mr. Holder was in the ICU here at [facility] [facility] about 10 years ago, on dialysis in deep sepsis, and was rescued from the .? It was related to a bad hip he had. ?Subsequent to that, he had his hips replaced.? He is not sure which hip. ECHO report from 03/10/22 showed:? Normal LV wall thickness and function, EF 65-70%.? Moderate septal asymmetric hypertrophy.? Mildly increased RV size with normal function.? Mildly dilated LA and RA.? No significant valvular Doppler abnormalities.? IVC size was normal with greater than 50% inspiratory collapse. On 10/06/22 (yesterday), he presented to the walk in clinic with SOB, tachypnea, and cough, and was referred directly to the ED.? See subsequent inpatient notes. The patient was admitted to Medicine last night by Dr. Vaughn.? He already put in the consult for thoracic surgery.? The patient went into respiratory distress this morning, possibly secondary to CHF.? The patient was still in the ED.? He was seen by NIRMAL Quintanilla, intubated, and lined.? He was transferred to the ICU this morning. On my exam, the patient is on propofol 30 ug and fentanyl 100 mcg and adequately sedated.? Also on Levophed 0.26 mcg, and diltiazem 15 mg/hour.? Heart rate 84, atrial fibrillation.? BP 76/48.? On PC 20, 22/10, 60%, RR is 23, Vt 470cc, Ve 10.7L, PIP 33cm, Sat 95%.? No JVD at 30 degrees. ?Very diminished breath sounds on the left.? Notable peripheral edema. My bedside echo:? LV size and function is probably normal with ejection fraction about 60%.? No wall motion abnormalities noted.? Right ventricle looks enlarged with RV: LV cavity ratio as much as 1.5.? Trace AI by color-flow.? Trace MR by color flow.? Trace TR by color-flow.? An excellent CWD signal was obtained, measuring 2.5 m/sec (gradient 25 mm).? IVC measured 1.6 cm with about 25% insp collapse. ECHO by the principal technical writer:? Similar findings.? IVC measured 2.2 cm with 25% insp collapse.? RVSP estimate 36mm. IMPRESSION: 1. Underlying chronic Afib. 2. Underlying RHF. 3. Recurrent left pneumonia with loculated pleural effusion, very possibly/likely trapped lung, possible/likely empyema. 4. Acute resp failure.? We spent a good deal of time with multiple ventilator settings, trying to achieve adequate tidal volumes. 5. Septic shock.? On vanco and Zosyn. Discussed with Dr. Degroot and thoracic staff at length.? Also mult d/w with Dr. Bryant from IR here at length.? At a minimum, we need a diagnostic thoracentesis.? Does not need to be today.? Might be better tomorrow, given that the patient may be currently on Eliquis, and we might have to put a pigtail catheter in, if the fluid in his chest is liquid. Critical care time (including extended? chart review):? 2+ hours. Critical Care Time (minutes): 120 Physical Exam Vital Signs: Vital Signs: Last Vital Signs Temp 99.0 F 10/07/22 11:59 Pulse 88 10/07/22 14:00 Resp 20 10/07/22 14:00 BP 104/61 10/07/22 14:00 Pulse Ox 97 10/07/22 14:00 O2 Del Method 10/07/22 14:00 FiO2 70 10/07/22 14:00 BMI result Body Mass Index 29.9 Objective Data Labs CBC & Chem 7: 10/07/22 05:09 10/07/22 08:05 Labs: Laboratory Results - last 24 hr 10/06/22 10/06/22 10/06/22 18:41 18:41 18:41 WBC 12.9 H RBC 3.67 L Hgb 12.1 L Hct 37.2 L MCV 101.4 H MCH 33.0 MCHC 32.5 RDW 17.5 H Plt Count 299 MPV 9.2 L Immature Gran % (Auto) 0.5 H Neut % (Auto) 83.7 H Lymph % (Auto) 3.6 L [place] % (Auto) 11.9 H Eos % (Auto) 0.1 Baso % (Auto) 0.2 Lymph # (Auto) 0.5 L [place] # (Auto) 1.5 H Eos # (Auto) 0.0 Baso # (Auto) 0.0 Abs Immat Gran (auto) 0.07 H Absolute Neuts (auto) 10.8 H Absolute Nucleated RBC 0.000 Nucleated RBC % (auto) 0.0 Smear Tech's Comments VERIFIED PT INR APTT O2 Saturation ABG pH at Pt Temp ABG pCO2 at Pt Temp ABG pO2 at Pt Temp ABG HCO3 ABG Base Excess (Actual) VBG pH VBG pCO2 VBG pO2 VBG HCO3 VBG O2 Saturation VBG Base Excess Sodium 139 Potassium 4.5 Chloride 101 Carbon Dioxide 28 Anion Gap 15 BUN 11 Creatinine 0.68 Estim Creat Clear Calc 109.9 Estimated GFR > 60 POC Glucose Random Glucose 153 H Lactic Acid 2.9 H* Lactic Acid F/U @ 2Hr Lactic Acid F/U @ 4Hr Calcium 8.9 Magnesium 1.8 Total Bilirubin 0.8 AST 6 ALT < 6 Alkaline Phosphatase 145 H D B-Natriuretic Peptide Total Protein 6.1 L Albumin 3.1 L Urine Color Urine Appearance Urine pH Ur Specific [place] Urine Protein Urine Glucose (UA) Urine Ketones Urine Blood Urine Nitrite Ur Leukocyte Esterase Urine RBC Urine WBC Ur Squamous Epith Cells Urine Bacteria Hyaline Casts Influenza Type A (PCR) Influenza Type B (PCR) RSV RNA Qual (PCR) SARS-CoV-2 RNA (RT-PCR) 10/06/22 10/06/22 10/06/22 18:41 19:33 21:06 WBC RBC Hgb Hct MCV MCH MCHC RDW Plt Count MPV Immature Gran % (Auto) Neut % (Auto) Lymph % (Auto) [place] % (Auto) Eos % (Auto) Baso % (Auto) Lymph # (Auto) [place] # (Auto) Eos # (Auto) Baso # (Auto) Abs Immat Gran (auto) Absolute Neuts (auto) Absolute Nucleated RBC Nucleated RBC % (auto) Smear Tech's Comments PT INR APTT O2 Saturation ABG pH at Pt Temp ABG pCO2 at Pt Temp ABG pO2 at Pt Temp ABG HCO3 ABG Base Excess (Actual) VBG pH VBG pCO2 VBG pO2 VBG HCO3 VBG O2 Saturation VBG Base Excess Sodium Potassium Chloride Carbon Dioxide Anion Gap BUN Creatinine Estim Creat Clear Calc Estimated GFR POC Glucose Random Glucose Lactic Acid Lactic Acid F/U @ 2Hr 2.7 H* Lactic Acid F/U @ 4Hr Calcium Magnesium Total Bilirubin AST ALT Alkaline Phosphatase B-Natriuretic Peptide 248 H Total Protein Albumin Urine Color Urine Appearance Urine pH Ur Specific [place] Urine Protein Urine Glucose (UA) Urine Ketones Urine Blood Urine Nitrite Ur Leukocyte Esterase Urine RBC Urine WBC Ur Squamous Epith Cells Urine Bacteria Hyaline Casts Influenza Type A (PCR) NEGATIVE Influenza Type B (PCR) NEGATIVE RSV RNA Qual (PCR) NEGATIVE SARS-CoV-2 RNA (RT-PCR) NEGATIVE 10/06/22 10/06/22 10/07/22 22:38 23:36 01:11 WBC RBC Hgb Hct MCV MCH MCHC RDW Plt Count MPV Immature Gran % (Auto) Neut % (Auto) Lymph % (Auto) [place] % (Auto) Eos % (Auto) Baso % (Auto) Lymph # (Auto) [place] # (Auto) Eos # (Auto) Baso # (Auto) Abs Immat Gran (auto) Absolute Neuts (auto) Absolute Nucleated RBC Nucleated RBC % (auto) Smear Tech's Comments PT INR APTT O2 Saturation ABG pH at Pt Temp ABG pCO2 at Pt Temp ABG pO2 at Pt Temp ABG HCO3 ABG Base Excess (Actual) VBG pH VBG pCO2 VBG pO2 VBG HCO3 VBG O2 Saturation VBG Base Excess Sodium Potassium Chloride Carbon Dioxide Anion Gap BUN Creatinine Estim Creat Clear Calc Estimated GFR POC Glucose 121 H Random Glucose Lactic Acid Lactic Acid F/U @ 2Hr Lactic Acid F/U @ 4Hr 3.1 H* Calcium Magnesium Total Bilirubin AST ALT Alkaline Phosphatase B-Natriuretic Peptide Total Protein Albumin Urine Color Yellow Urine Appearance Clear Urine pH 5.5 Ur Specific [place] >= 1.030 H Urine Protein Trace Urine Glucose (UA) Negative Urine Ketones Trace Urine Blood Small (1+) H Urine Nitrite Negative Ur Leukocyte Esterase Negative Urine RBC 6-10 H Urine WBC 0-5 Ur Squamous Epith Cells 3-5 Urine Bacteria Trace Hyaline Casts 0-2 Influenza Type A (PCR) Influenza Type B (PCR) RSV RNA Qual (PCR) SARS-CoV-2 RNA (RT-PCR) 10/07/22 10/07/22 10/07/22 04:25 05:09 05:09 WBC 19.6 H RBC 3.89 L Hgb 12.7 L Hct 40.4 L MCV 103.9 H MCH 32.6 MCHC 31.4 RDW 17.7 H Plt Count 381 D MPV 9.2 L Immature Gran % (Auto) 1.1 H Neut % (Auto) 82.7 H Lymph % (Auto) 4.6 L [place] % (Auto) 11.2 H Eos % (Auto) 0.1 Baso % (Auto) 0.3 Lymph # (Auto) 0.9 L [place] # (Auto) 2.2 H Eos # (Auto) 0.0 Baso # (Auto) 0.1 Abs Immat Gran (auto) 0.21 H Absolute Neuts (auto) 16.2 H Absolute Nucleated RBC 0.000 Nucleated RBC % (auto) 0.0 Smear Tech's Comments VERIFIED PT INR APTT O2 Saturation 89.0 ABG pH at Pt Temp 7.07 L* ABG pCO2 at Pt Temp 89 H* ABG pO2 at Pt Temp 87 ABG HCO3 26 ABG Base Excess (Actual) -5.7 VBG pH VBG pCO2 VBG pO2 VBG HCO3 VBG O2 Saturation VBG Base Excess Sodium Potassium Chloride Carbon Dioxide Anion Gap BUN Creatinine Estim Creat Clear Calc Estimated GFR POC Glucose Random Glucose Lactic Acid 2.4 H* Lactic Acid F/U @ 2Hr Lactic Acid F/U @ 4Hr Calcium Magnesium Total Bilirubin AST ALT Alkaline Phosphatase B-Natriuretic Peptide Total Protein Albumin Urine Color Urine Appearance Urine pH Ur Specific [place] Urine Protein Urine Glucose (UA) Urine Ketones Urine Blood Urine Nitrite Ur Leukocyte Esterase Urine RBC Urine WBC Ur Squamous Epith Cells Urine Bacteria Hyaline Casts Influenza Type A (PCR) Influenza Type B (PCR) RSV RNA Qual (PCR) SARS-CoV-2 RNA (RT-PCR) 10/07/22 10/07/22 10/07/22 05:09 05:09 07:58 WBC RBC Hgb Hct MCV MCH MCHC RDW Plt Count MPV Immature Gran % (Auto) Neut % (Auto) Lymph % (Auto) [place] % (Auto) Eos % (Auto) Baso % (Auto) Lymph # (Auto) [place] # (Auto) Eos # (Auto) Baso # (Auto) Abs Immat Gran (auto) Absolute Neuts (auto) Absolute Nucleated RBC Nucleated RBC % (auto) Smear Tech's Comments PT INR APTT O2 Saturation ABG pH at Pt Temp ABG pCO2 at Pt Temp ABG pO2 at Pt Temp ABG HCO3 ABG Base Excess (Actual) VBG pH VBG pCO2 VBG pO2 VBG HCO3 VBG O2 Saturation VBG Base Excess Sodium Potassium Chloride Carbon Dioxide Anion Gap BUN Creatinine Estim Creat Clear Calc Estimated GFR POC Glucose 183 H Random Glucose Lactic Acid Cancelled Lactic Acid F/U @ 2Hr Lactic Acid F/U @ 4Hr Calcium Magnesium Total Bilirubin AST ALT Alkaline Phosphatase B-Natriuretic Peptide 486 H Total Protein Albumin Urine Color Urine Appearance Urine pH Ur Specific [place] Urine Protein Urine Glucose (UA) Urine Ketones Urine Blood Urine Nitrite Ur Leukocyte Esterase Urine RBC Urine WBC Ur Squamous Epith Cells Urine Bacteria Hyaline Casts Influenza Type A (PCR) Influenza Type B (PCR) RSV RNA Qual (PCR) SARS-CoV-2 RNA (RT-PCR) 12/05/2210/07/22 10/07/22 08:05 08:05 08:05 WBC RBC Hgb Hct MCV MCH MCHC RDW Plt Count MPV Immature Gran % (Auto) Neut % (Auto) Lymph % (Auto) [place] % (Auto) Eos % (Auto) Baso % (Auto) Lymph # (Auto) [place] # (Auto) Eos # (Auto) Baso # (Auto) Abs Immat Gran (auto) Absolute Neuts (auto) Absolute Nucleated RBC Nucleated RBC % (auto) Smear Tech's Comments PT 15.7 H INR 1.4 H APTT 26.0 O2 Saturation ABG pH at Pt Temp ABG pCO2 at Pt Temp ABG pO2 at Pt Temp ABG HCO3 ABG Base Excess (Actual) VBG pH VBG pCO2 VBG pO2 VBG HCO3 VBG O2 Saturation VBG Base Excess Sodium 138 Potassium 4.3 Chloride 106 Carbon Dioxide 20 L Anion Gap 16 BUN 12 Creatinine 0.92 Estim Creat Clear Calc 81.2 Estimated GFR > 60 POC Glucose Random Glucose 191 H Lactic Acid Lactic Acid F/U @ 2Hr 3.0 H* Lactic Acid F/U @ 4Hr Calcium 8.5 Magnesium Total Bilirubin AST ALT Alkaline Phosphatase B-Natriuretic Peptide Total Protein Albumin Urine Color Urine Appearance Urine pH Ur Specific [place] Urine Protein Urine Glucose (UA) Urine Ketones Urine Blood Urine Nitrite Ur Leukocyte Esterase Urine RBC Urine WBC Ur Squamous Epith Cells Urine Bacteria Hyaline Casts Influenza Type A (PCR) Influenza Type B (PCR) RSV RNA Qual (PCR) SARS-CoV-2 RNA (RT-PCR) 10/07/22 10/07/22 11:19 11:40 WBC RBC Hgb Hct MCV MCH MCHC RDW Plt Count MPV Immature Gran % (Auto) Neut % (Auto) Lymph % (Auto) [place] % (Auto) Eos % (Auto) Baso % (Auto) Lymph # (Auto) [place] # (Auto) Eos # (Auto) Baso # (Auto) Abs Immat Gran (auto) Absolute Neuts (auto) Absolute Nucleated RBC Nucleated RBC % (auto) Smear Tech's Comments PT INR APTT O2 Saturation ABG pH at Pt Temp ABG pCO2 at Pt Temp ABG pO2 at Pt Temp ABG HCO3 ABG Base Excess (Actual) VBG pH 7.26 L VBG pCO2 42 VBG pO2 49 VBG HCO3 19 L VBG O2 Saturation 74.0 VBG Base Excess -6.9 Sodium Potassium Chloride Carbon Dioxide Anion Gap BUN Creatinine Estim Creat Clear Calc Estimated GFR POC Glucose 147 H Random Glucose Lactic Acid Lactic Acid F/U @ 2Hr Lactic Acid F/U @ 4Hr Calcium Magnesium Total Bilirubin AST ALT Alkaline Phosphatase B-Natriuretic Peptide Total Protein Albumin Urine Color Urine Appearance Urine pH Ur Specific [place] Urine Protein Urine Glucose (UA) Urine Ketones Urine Blood Urine Nitrite Ur Leukocyte Esterase Urine RBC Urine WBC Ur Squamous Epith Cells Urine Bacteria Hyaline Casts Influenza Type A (PCR) Influenza Type B (PCR) RSV RNA Qual (PCR) SARS-CoV-2 RNA (RT-PCR) Microbiology Microbiology Results: Microbiology 10/07/22 01:14 Sputum - Induced Gram Stain - Final Quality Stroke Does the patient have a stroke diagnosis?: No VTE Prior VTE?: No VTE Risk Level:: Medical - moderate - high VTE Device Contraindication: Treatment Not Indicated VTE Drug Contraindication: N/A - Med Ordered Critical Care Time Critical Care Time (minutes): 120
[2022-10-07] MEDS: fentaNYL citrate/NS 1,000 MCG/100 ML PLAST..BAG 10 MCG IVCONT (15:44)
[2022-10-07] MEDS: Lactated Ringers 500 ML IV (15:45)
--- NOTE | 2022-10-07 16:01 | PM.CNGS ---
History of Present Illness Consult details Consult date: 10/07/22 Requesting physician: Rashi Velazquez Narrative: Loculated left pleural effusion Review of Systems Review of Systems: OLIVIA is unobtainable due to being intubated and sedated [facility] Past Medical History Medical History (Updated 10/07/22 @ 16:43 by NIRMAL Robertson) Alcohol abuse Atrial fibrillation BPH (benign prostatic hyperplasia) Chronic atrial fibrillation Diabetic nephropathy Diverticulitis Hypercholesterolemia Hypertension Macrocytosis without anemia Osteoarthritis Overweight (BMI 25.0-29.9) Peripheral vascular disease Pneumonia Sepsis Tobacco abuse Type 2 diabetes mellitus with hyperglycemia Vitamin D deficiency Family History Family History Father Cancer of back Son In good health Pertinent family history: Chart records reviewed Surgical History Surgical History Colostomy status History of appendectomy History of colonoscopy History of hip replacement History of laparotomy History of surgery History of surgery Status post Bret procedure Social History Social History Housing: House Alcohol intake: never Patient Tobacco Use Status: Former Tobacco user (two months ago) Cigarette Packs Per Day: 0.5 e-Cigarette/Vaping Use: Never Used Second Hand Smoke Exposure: No service: No Current occupational status: retired Cognitive needs: No Hearing needs: No Vision needs: Yes Narrative Narrative: All available hospital records reviewed as well as in-person conversation with attending, Dr. Velazquez. Mr. Holder is a 71 year-old gentleman who had not been feeling well for approximately 3 weeks. Yesterday he presented to Urgent Care who then sent pt to ER with c/o productive cough (with yellow sputum), shortness of breath and tachycardia. He was admitted in the ER with left lower lobe pneumonia for IV antibiotics. His initial presentation was a resting O2 saturation of 92% but with any activity he would desaturate. CT scan demonstrated a loculated left-sided pleural fluid collection with rind and atelectasis. Multiple air droplets within fluid collection. 6 mm nodule in the RUL which is unchanged since prior CT scan performed on 04/23/2021. His PMH is significant for a prior left pleural effusion that was treated with an Aspiria Drain for which he was hospitalized for from 04/24 - 05/07/21. This morning he quickly decompensated with respiratory failure which may be due to pneumonia, CHF and sepsis. He was moved to the ICU and intubated on levophed, propofol, fentanyl and diltiazem. Thoracic Surgery is being consulted for evaluation and treatment of left loculated pleural effusion. Meds Allergies Allergy/AdvReac Type Severity Reaction Status Date / Time No Known Allergies Allergy Verified 10/06/22 15:01 Active Medications: Current Medications Acetaminophen (Acetaminophen 325 Mg Tablet) 650 mg PO Q6H PRN PRN Reason: Pain, Mild (Pain Scale 1-3) Chlorhexidine Gluconate (Chlorhexidine Gluc Oral Rinse 15 Ml Mouthwash) 15 ml BUCCAL TID ANTHONY Last Admin: 10/07/22 15:02 Dose: 15 ml Fentanyl (Fentanyl Citrate/Pf 100 Mcg/2 Ml Vial) 50 mcg IVPUSH Q5M PRN; Protocol PRN Reason: WOB Fentanyl (Fentanyl Citrate/Pf 100 Mcg/2 Ml Vial) 100 mcg IVPUSH Q5M PRN; Protocol PRN Reason: Severe WOB Propofol (Diprivan) 1,000 mg in 100 mls @ 0 mls/hr IVCONT .Q0M ANHTONY; Protocol Last Admin: 10/07/22 15:44 Dose: 30 mcg/kg/min, 16.54 mls/hr Norepinephrine Bitartrate (Levophed) 8 mg in 250 mls @ 0 mls/hr IVCONT .Q0M ANTHONY; Protocol Last Titration: 10/07/22 15:59 Dose: 0.37 mcg/kg/min, 63.76 mls/hr Diltiazem HCl 125 mg/ Sodium (Chloride) 125 mls @ 0 mls/hr IVCONT .Q0M ANTHONY; Protocol Last Titration: 10/07/22 11:54 Dose: 10 mg/hr, 10 mls/hr Piperacillin Sod/Tazobactam (Sod 4.5 gm/ Sodium Chloride) 100 mls @ 200 mls/hr IV Q6H ANTHONY Last Infusion: 10/07/22 15:36 Dose: Infused Fentanyl (Sublimaze/Ns) 1,000 mcg in 100 mls @ 0 mls/hr IVCONT .Q0M ANTHONY; Protocol Last Admin: 10/07/22 15:44 Dose: 100 mcg/hr, 10 mls/hr Vancomycin HCl 1,000 mg/ (Sodium Chloride) 270 mls @ 270 mls/hr IV Q12H [facility] Lactated Ringer's (Lr) 500 mls @ 500 mls/hr IV .Q1H [facility] Stop: 10/07/22 16:14 Last Admin: 10/07/22 15:45 Dose: 500 mls/hr Insulin Human Lispro (Insulin Lispro 100 Unit/Ml 3 Ml Vial) 0 unit SUBCUT QIDACHS [facility]; Protocol Last Admin: 10/07/22 11:38 Dose: Not Given Morphine Sulfate (Morphine Sulfate 2 Mg/Ml Cartridge) 2 mg IVPUSH Q2H PRN; Protocol PRN Reason: Dyspnea Last Admin: 10/07/22 05:15 Dose: 2 mg Pantoprazole Sodium (Pantoprazole Sodium 40 Mg/10 Ml Vial) 40 mg IVPUSH DAILY@0630 [facility] Pharmacy Consult (Consult Rx Perform Med Rec) 1 each MISCELLANE ONCE PRN PRN Reason: Consult order Pharmacy Consult (Consult Rx Vancomycin Dosing) 1 each MISCELLANE DAILY PRN PRN Reason: Consult order Sodium Chloride (0.9 % Sodium Chloride Flush 3 Ml Syringe) [facility] Last Admin: 10/07/22 15:03 Dose: 3 ml Home Medications Medication Instructions Recorded Confirmed Last Taken Type acetaminophen 325 mg tablet 650 mg PO Q8H PRN Pain 05/28/21 10/06/22 Unknown History (Tylenol) ascorbate calcium (vitamin C) 500 500 mg PO DAILY 10/15/21 10/06/22 10/06/22 History mg tablet Physical Exam Vital Signs: Vital Signs: Last Vital Signs Temp 99.5 F 10/07/22 15:00 Pulse 82 10/07/22 15:00 Resp 16 10/07/22 15:00 BP 102/64 10/07/22 15:59 Pulse Ox 95 10/07/22 15:00 O2 Del Method 10/07/22 15:00 FiO2 50 10/07/22 15:00 BMI result Body Mass Index 29.9 Const: Other: pt intubated and sedated HEENT: Head: Yes normal to inspection Neck: Other: trachea midline, no cervical lymphadenopathy Resp: Other: Right side clear, left side diminished. Pt is on ventator settings: PCV, FiO2 60%, PEEP 10 TV 450 - 500 Cardio: Other: irregularly regular GI: Other: Abd soft, not distended, hypoactive bowel sounds : Other: Luna catheter in place Skin: Other: PVD, wood like appearance of lower extremities bilaterally General skin exam: no rashes or lesions noted Neuro: Other: intubated and sedated Extrem: Other: +2 ankle edema, PVD with brown thickened skin over lower extremities bilaterally. Psych: Other: intubated and sedated Results Labs Result diagrams: 10/07/22 05:09 10/07/22 08:05 Labs: Abnormal lab results 10/06/22 10/06/22 10/06/22 Range/Units 18:41 18:41 18:41 WBC 12.9 H (4.8-10.8) X10*3/uL RBC 3.67 L (4.60-5.80) X10*6/uL Hgb 12.1 L (14.0-18.0) g/dl Hct 37.2 L (42.0-52.0) % MCV 101.4 H (80.0-98.0) fL RDW 17.5 H (11.0-16.0) % MPV 9.2 L (9.4-12.4) fL Immature Gran % (Auto) 0.5 H (0.0-0.4) % Neut % (Auto) 83.7 H (45-73) % Lymph % (Auto) 3.6 L (20-40) % Henry % (Auto) 11.9 H (2-11) % Lymph # (Auto) 0.5 L (1.2-4.9) X10*3/uL Henry # (Auto) 1.5 H (0.1-1.2) X10*3/uL Abs Immat Gran (auto) 0.07 H (0.00-0.03) X10*3/uL Absolute Neuts (auto) 10.8 H (2.0-8.3) x10*3/uL PT (10.0-13.1) SEC INR (0.9-1.1) ABG pH at Pt Temp (7.35-7.45) ABG pCO2 at Pt Temp (32-45) mmHg VBG pH (7.32-7.43) VBG HCO3 (22-26) mmol/L Carbon Dioxide (22-29) mmol/L POC Glucose (60-115) mg/dL Random Glucose 153 H (60-115) mg/dL Lactic Acid 2.9 H* (0.5-2.0) mmol/L Lactic Acid F/U @ 2Hr (0.5-2.0) mmol/L Lactic Acid F/U @ 4Hr (0.5-2.0) mmol/L Alkaline Phosphatase 145 H D (39-117) U/L B-Natriuretic Peptide (<100) pg/mL Total Protein 6.1 L (6.5-8.0) g/dL Albumin 3.1 L (3.5-5.0) g/dL Ur Specific [place] (1.005-1.025) Urine Blood (Negative) Urine RBC (0-2) /HPF 10/06/22 10/06/22 10/06/22 Range/Units 18:41 21:06 22:38 WBC (4.8-10.8) X10*3/uL RBC (4.60-5.80) X10*6/uL Hgb (14.0-18.0) g/dl Hct (42.0-52.0) % MCV (80.0-98.0) fL RDW (11.0-16.0) % MPV (9.4-12.4) fL Immature Gran % (Auto) (0.0-0.4) % Neut % (Auto) (45-73) % Lymph % (Auto) (20-40) % Henry % (Auto) (2-11) % Lymph # (Auto) (1.2-4.9) X10*3/uL Henry # (Auto) (0.1-1.2) X10*3/uL Abs Immat Gran (auto) (0.00-0.03) X10*3/uL Absolute Neuts (auto) (2.0-8.3) x10*3/uL PT (10.0-13.1) SEC INR (0.9-1.1) ABG pH at Pt Temp (7.35-7.45) ABG pCO2 at Pt Temp (32-45) mmHg VBG pH (7.32-7.43) VBG HCO3 (22-26) mmol/L Carbon Dioxide (22-29) mmol/L POC Glucose 121 H (60-115) mg/dL Random Glucose (60-115) mg/dL Lactic Acid (0.5-2.0) mmol/L Lactic Acid F/U @ 2Hr 2.7 H* (0.5-2.0) mmol/L Lactic Acid F/U @ 4Hr (0.5-2.0) mmol/L Alkaline Phosphatase (39-117) U/L B-Natriuretic Peptide 248 H (<100) pg/mL Total Protein (6.5-8.0) g/dL Albumin (3.5-5.0) g/dL Ur Specific [place] (1.005-1.025) Urine Blood (Negative) Urine RBC (0-2) /HPF 10/06/22 10/07/22 10/07/22 Range/Units 23:36 01:11 04:25 WBC (4.8-10.8) X10*3/uL RBC (4.60-5.80) X10*6/uL Hgb (14.0-18.0) g/dl Hct (42.0-52.0) % MCV (80.0-98.0) fL RDW (11.0-16.0) % MPV (9.4-12.4) fL Immature Gran % (Auto) (0.0-0.4) % Neut % (Auto) (45-73) % Lymph % (Auto) (20-40) % Henry % (Auto) (2-11) % Lymph # (Auto) (1.2-4.9) X10*3/uL Henry # (Auto) (0.1-1.2) X10*3/uL Abs Immat Gran (auto) (0.00-0.03) X10*3/uL Absolute Neuts (auto) (2.0-8.3) x10*3/uL PT (10.0-13.1) SEC INR (0.9-1.1) ABG pH at Pt Temp 7.07 L* (7.35-7.45) ABG pCO2 at Pt Temp 89 H* (32-45) mmHg VBG pH (7.32-7.43) VBG HCO3 (22-26) mmol/L Carbon Dioxide (22-29) mmol/L POC Glucose (60-115) mg/dL Random Glucose (60-115) mg/dL Lactic Acid (0.5-2.0) mmol/L Lactic Acid F/U @ 2Hr (0.5-2.0) mmol/L Lactic Acid F/U @ 4Hr 3.1 H* (0.5-2.0) mmol/L Alkaline Phosphatase (39-117) U/L B-Natriuretic Peptide (<100) pg/mL Total Protein (6.5-8.0) g/dL Albumin (3.5-5.0) g/dL Ur Specific [place] >= 1.030 H (1.005-1.025) Urine Blood Small (1+) H (Negative) Urine RBC 6-10 H (0-2) /HPF 10/07/22 10/07/22 10/07/22 Range/Units 05:09 05:09 05:09 WBC 19.6 H (4.8-10.8) X10*3/uL RBC 3.89 L (4.60-5.80) X10*6/uL Hgb 12.7 L (14.0-18.0) g/dl Hct 40.4 L (42.0-52.0) % MCV 103.9 H (80.0-98.0) fL RDW 17.7 H (11.0-16.0) % MPV 9.2 L (9.4-12.4) fL Immature Gran % (Auto) 1.1 H (0.0-0.4) % Neut % (Auto) 82.7 H (45-73) % Lymph % (Auto) 4.6 L (20-40) % Henry % (Auto) 11.2 H (2-11) % Lymph # (Auto) 0.9 L (1.2-4.9) X10*3/uL Henry # (Auto) 2.2 H (0.1-1.2) X10*3/uL Abs Immat Gran (auto) 0.21 H (0.00-0.03) X10*3/uL Absolute Neuts (auto) 16.2 H (2.0-8.3) x10*3/uL PT (10.0-13.1) SEC INR (0.9-1.1) ABG pH at Pt Temp (7.35-7.45) ABG pCO2 at Pt Temp (32-45) mmHg VBG pH (7.32-7.43) VBG HCO3 (22-26) mmol/L Carbon Dioxide (22-29) mmol/L POC Glucose (60-115) mg/dL Random Glucose (60-115) mg/dL Lactic Acid 2.4 H* (0.5-2.0) mmol/L Lactic Acid F/U @ 2Hr (0.5-2.0) mmol/L Lactic Acid F/U @ 4Hr (0.5-2.0) mmol/L Alkaline Phosphatase (39-117) U/L B-Natriuretic Peptide 486 H (<100) pg/mL Total Protein (6.5-8.0) g/dL Albumin (3.5-5.0) g/dL Ur Specific [place] (1.005-1.025) Urine Blood (Negative) Urine RBC (0-2) /HPF 10/07/22 10/07/22 10/07/22 Range/Units 07:58 08:05 08:05 WBC (4.8-10.8) X10*3/uL RBC (4.60-5.80) X10*6/uL Hgb (14.0-18.0) g/dl Hct (42.0-52.0) % MCV (80.0-98.0) fL RDW (11.0-16.0) % MPV (9.4-12.4) fL Immature Gran % (Auto) (0.0-0.4) % Neut % (Auto) (45-73) % Lymph % (Auto) (20-40) % Henry % (Auto) (2-11) % Lymph # (Auto) (1.2-4.9) X10*3/uL Henry # (Auto) (0.1-1.2) X10*3/uL Abs Immat Gran (auto) (0.00-0.03) X10*3/uL Absolute Neuts (auto) (2.0-8.3) x10*3/uL PT 15.7 H (10.0-13.1) SEC INR 1.4 H (0.9-1.1) ABG pH at Pt Temp (7.35-7.45) ABG pCO2 at Pt Temp (32-45) mmHg VBG pH (7.32-7.43) VBG HCO3 (22-26) mmol/L Carbon Dioxide 20 L (22-29) mmol/L POC Glucose 183 H (60-115) mg/dL Random Glucose 191 H (60-115) mg/dL Lactic Acid (0.5-2.0) mmol/L Lactic Acid F/U @ 2Hr (0.5-2.0) mmol/L Lactic Acid F/U @ 4Hr (0.5-2.0) mmol/L Alkaline Phosphatase (39-117) U/L B-Natriuretic Peptide (<100) pg/mL Total Protein (6.5-8.0) g/dL Albumin (3.5-5.0) g/dL Ur Specific [place] (1.005-1.025) Urine Blood (Negative) Urine RBC (0-2) /HPF 10/07/22 10/07/22 10/07/22 Range/Units 08:05 11:19 11:40 WBC (4.8-10.8) X10*3/uL RBC (4.60-5.80) X10*6/uL Hgb (14.0-18.0) g/dl Hct (42.0-52.0) % MCV (80.0-98.0) fL RDW (11.0-16.0) % MPV (9.4-12.4) fL Immature Gran % (Auto) (0.0-0.4) % Neut % (Auto) (45-73) % Lymph % (Auto) (20-40) % Henry % (Auto) (2-11) % Lymph # (Auto) (1.2-4.9) X10*3/uL Henry # (Auto) (0.1-1.2) X10*3/uL Abs Immat Gran (auto) (0.00-0.03) X10*3/uL Absolute Neuts (auto) (2.0-8.3) x10*3/uL PT (10.0-13.1) SEC INR (0.9-1.1) ABG pH at Pt Temp (7.35-7.45) ABG pCO2 at Pt Temp (32-45) mmHg VBG pH 7.26 L (7.32-7.43) VBG HCO3 19 L (22-26) mmol/L Carbon Dioxide (22-29) mmol/L POC Glucose 147 H (60-115) mg/dL Random Glucose (60-115) mg/dL Lactic Acid (0.5-2.0) mmol/L Lactic Acid F/U @ 2Hr 3.0 H* (0.5-2.0) mmol/L Lactic Acid F/U @ 4Hr (0.5-2.0) mmol/L Alkaline Phosphatase (39-117) U/L B-Natriuretic Peptide (<100) pg/mL Total Protein (6.5-8.0) g/dL Albumin (3.5-5.0) g/dL Ur Specific [place] (1.005-1.025) Urine Blood (Negative) Urine RBC (0-2) /HPF Short CBC 10/06/22 10/07/22 Range/Units 18:41 05:09 WBC 12.9 H 19.6 H (4.8-10.8) X10*3/uL Hgb 12.1 L 12.7 L (14.0-18.0) g/dl Hct 37.2 L 40.4 L (42.0-52.0) % Plt Count 299 381 D (160-400) X10*3/uL BMP 10/06/22 10/07/22 18:41 08:05 Sodium 139 138 Potassium 4.5 4.3 Chloride 101 106 Carbon Dioxide 28 20 L BUN 11 12 Creatinine 0.68 0.92 Calcium 8.9 8.5 Liver Function 10/06/22 Range/Units 18:41 Total Bilirubin 0.8 (0.0-1.0) mg/dL AST 6 (5-37) U/L ALT < 6 (0-40) U/L Alkaline Phosphatase 145 H D (39-117) U/L Albumin 3.1 L (3.5-5.0) g/dL Urine 10/07/22 Range/Units 01:11 Urine Color Yellow Urine Appearance Clear Urine pH 5.5 (5.0-9.0) Ur Specific [place] >= 1.030 H (1.005-1.025) Urine Protein Trace (Neg-Trace) mg/dL Urine Glucose (UA) Negative (Negative) mg/dL All other labs normal. Imaging Chest x-ray: image reviewed CT scan - chest: report reviewed and image reviewed EKG: report reviewed Assessment and Plan (1) Recurrent left pleural effusion: Status: Acute Mr. Holder is a 71 y/o gentleman with ARF due to pneumonia and recurrent left pleural effusion with RIND Appearance and sepsis. Plan 1. Diagnostic Thoracentesis 2. Leave Pigtail drain in for potential TPA. Typically wait 48 hours after last Eliquis dose for TPA therapy. 3. Continue supportative care with ventilation 4. Continue Vanco and Zosyn for unclassified pneumonia. Await blood and sputum cultures Discussed with Dr. Degroot Procedures Date of Service Date of Service: 10/07/22
[2022-10-07 16:04] LABS: Glucose, Whole Blood 142 mg/dL (60-115)
[2022-10-07 19:25] LABS: VBG Base Excess -7.7 mmol/L; VBG HCO3 17 mmol/L (22-26); VBG pCO2 36 mmHg; VBG pH 7.29 (7.32-7.43); VBG pO2 52 mmHg
[2022-10-07 19:46] LABS: Anion Gap 19 (12-20); Blood Urea Nitrogen 16 mg/dL (9-16); Calcium 8.3 mg/dL (8.4-10.2); Carbon Dioxide 18 mmol/L (22-29); Chloride 107 mmol/L (96-108); Creatinine Clr Calc Pharmacy 59.3; Estimated Glomerular Filt Rate 56; Glucose Random 156 mg/dL (60-115); Magnesium 1.5 mg/dL (1.6-2.6); Potassium 4.3 mmol/L (3.3-5.1); Sodium 140 mmol/L (135-145)
[2022-10-07 19:51] LABS: Lactic Acid 3.4 mmol/L (0.5-2.0)
[2022-10-07 19:55] LABS: Venous Blood Gas Refer to POC result
[2022-10-07 19:55] LABS: Venous Blood Gas Refer to POC result
[2022-10-07 20:19] LABS: Vancomycin Trough 24.5 mcg/mL (10.0-20.0)
[2022-10-07 20:58] LABS: Glucose, Whole Blood 153 mg/dL (60-115)
[2022-10-07] MEDS: Magnesium Sulfate/H2O 2 GM/50 ML PIGGYBACK IV (21:09)
--- NOTE | 2022-10-07 21:13 | HE.PHANOTE ---
RE: daveo Pt's trough was put in for today instead of tomorrow but came back at 24.5; held dose and changed to 1000mg Q24H with a level to be drawn prior to next dose on 10/08/22 @0800. Predicted AUC 458mg/L
[2022-10-07] MEDS: Heparin Sodium,Porcine 5,000 UNIT/ML VIAL 5000 UNIT SUBCUT (21:18)
[2022-10-07 21:25] LABS: Reflex Lactate? Lactic Acid Added
[2022-10-07] MEDS: Lactated Ringers 1,000 ML 500 ML IV (21:28)
[2022-10-07 22:09] LABS: ~Lactic Acid-LAB USE ONLY 3.4 mmol/L (0.5-2.0)
--- NOTE | 2022-10-07 22:54 | W.PM.CCHP ---
Procedures Date of Service Date of Service: 10/07/22 Arterial Line Arterial Line Comments: Arterial line placement A quick time-out was made for clarification, proper patient identification for? placement of arterial line placement; with the help of a nurse, patient was positioned, landmarks were identified and a sterile field was prepped in a standard fashion.?Via a direct puncture of the right radial artery? good access? of the vessel was achieved. An arterial catheter was introduced, connected to the transducer for CPM, a good pressure wave is noted with good transitions of systolic and diastolic waves; The catheter was then secured with sutures and a bio stopper was placed, the site was then covered with a dressing. There was no complications and there was minimal blood loss. Case was discussed in detail with Dr. Velazquez.? He is aware of all the above as well as the plan of care for this patient. Consent: Emergent-no informed consent obtained Sterile Technique Used: Yes Time out performed: Yes Size (Gauge): 20 Technique used: direct puncture technique Post-Procedure: line sutured into place and dry sterile dressing placed Patient tolerated procedure: well and no complications Complications: none Site: right and radial
[2022-10-07] MEDS: Sodium Bicarbonate 8.4% 50 MEQ/50 ML VIAL 100 MEQ IVPUSH (22:55)
[2022-10-07] MEDS: Sodium Bicarbonate 8.4% 150 MEQ in Dextrose 5 % 850 ML 100 MEQ IV (22:55)
[2022-10-07 23:42] LABS: Reflex Lactate? 2 Y
[2022-10-08] VITALS (32 sets, daily range): BP systolic 61–129; BP diastolic 46–80; PULSE 79–130; RESP 12–18; TEMP 34.8–38; O2SAT 88–100; BMI 30.1
[2022-10-08 00:28] LABS: ~Lactic Acid-LAB USE ONLY 3.2 mmol/L (0.5-2.0)
[2022-10-08] MEDS: propofoL 1,000 MG/100 ML VIAL 16.54 MG IVCONT ×3 (00:40→13:44)
[2022-10-08] MEDS: Piperacillin Sodium/Tazobactam 4.5 GM in 0.9 % Sodium Chloride 100 ML IV ×4 (01:43→19:55)
[2022-10-08] MEDS: fentaNYL citrate/NS 1,000 MCG/100 ML PLAST..BAG 10 MCG IVCONT ×3 (02:17→18:29)
[2022-10-08 05:24] LABS: VBG HCO3 25 mmol/L (22-26); VBG pCO2 41 mmHg; VBG pH 7.38 (7.32-7.43); VBG pO2 63 mmHg
[2022-10-08 05:36] LABS: Venous Blood Gas Refer to POC result
[2022-10-08 05:39] LABS: Hematocrit 36.2 % (42.0-52.0); Hemoglobin 11.8 g/dl (14.0-18.0); Mean Corpuscular HGB Conc 32.6 g/dl (31.0-36.0); Mean Corpuscular Volume 101.1 fL (80.0-98.0); Mean Platelet Volume 9.4 fL (9.4-12.4); Platelet Count 280 X10*3/uL (160-400); Red Blood Count 3.58 X10*6/uL (4.60-5.80); Red Cell Distribution Width 17.4 % (11.0-16.0)
[2022-10-08 05:40] LABS: WBC ABN SCTR FOR CBC 1
[2022-10-08] MEDS: Heparin Sodium,Porcine 5,000 UNIT/ML VIAL 5000 UNIT SUBCUT ×3 (05:49→20:41)
[2022-10-08] MEDS: Pantoprazole Sodium 40 MG/10 ML VIAL IVPUSH (05:50)
[2022-10-08 06:03] LABS: Band Neutrophils Percent 22 % (3-5); Giant Platelet PRESENT; Lymphocytes Absolute Manual 0.3 X10*3/uL (1.2-4.9); Lymphocytes Percent Manual 1 % (20-40); Macrocytosis 1+ (5-14) /OIF; Monocytes Percent Manual 7 % (2-11); Neutrophils Absolute Manual 26.7 X10*3/uL (2.0-8.3); Neutrophils Percent Manual 70 % (45-73); Platelet Estimate NORMAL (NORMAL); Platelet Morphology Comment NORMAL; RBC Morphology NOTED
[2022-10-08 06:04] LABS: Alanine Aminotransferase 9 U/L (0-40); Albumin Level 2.4 g/dL (3.5-5.0); Alkaline Phosphatase 93 U/L (39-117); Anion Gap 18 (12-20); Aspartate Amino Transferase 16 U/L (5-37); Blood Urea Nitrogen 18 mg/dL (9-16); Burr Cells 1+ (0-2) /OIF; C Reactive Protein 28.49 mg/dL (< or = 0.50); Carbon Dioxide 23 mmol/L (22-29); Chloride 105 mmol/L (96-108); Creatinine Clr Calc Pharmacy 51.2; Dohle Bodies PRESENT; Estimated Glomerular Filt Rate 47; Glucose Random 205 mg/dL (60-115); Phosphorus 3.8 mg/dL (2.7-4.5); Potassium 3.7 mmol/L (3.3-5.1); Sodium 142 mmol/L (135-145); Total Protein 4.6 g/dL (6.5-8.0)
[2022-10-08 06:05] LABS: Magnesium 1.7 mg/dL (1.6-2.6)
[2022-10-08 07:27] LABS: Glucose, Whole Blood 209 mg/dL (60-115)
[2022-10-08] MEDS: Chlorhexidine Gluc Oral Rinse 15 ML MOUTHWASH BUCCAL ×3 (07:46→19:54)
[2022-10-08] MEDS: Albumin Human 25 % 100 ML IV ×3 (07:49→19:55)
[2022-10-08] MEDS: 0.9 % Sodium Chloride Flush 3 ML SYRINGE IVFLUSH (07:50)
[2022-10-08] MEDS: Sodium Bicarbonate 8.4% 150 MEQ in Dextrose 5 % 850 ML 100 MEQ IV ×2 (07:50→17:28)
[2022-10-08] MEDS: Magnesium Sulfate/H2O 2 GM/50 ML PIGGYBACK IV (07:50)
[2022-10-08 08:47] LABS: Vancomycin Trough 16.1 mcg/mL (10.0-20.0)
--- NOTE | 2022-10-08 09:00 | HE.PHANOTE ---
RE VANCO TROUGH IS 16.1 TODAY (24 HOURS POST LST DOSE). SCR STILL INCREASING THEREFORE, CHANGING TO 750 Q24H, NEXT LEVEL 10/09
--- NOTE | 2022-10-08 10:21 | MHC.CLN ---
F/U PT IS INTUBATED AND SEDATED IF TF NEEDED; RECOMMEND TF PROMOTE AT MAX GOAL RATE 60ML/HR TO PROVIDE 1440KCALS (1877KCALS WITH SEDATION; 23KCALS/KG), 90G PROTEIN (1.1G/KG), 1208ML FREE WATER FROM FORMULA MONITOR TOLERANCE, RESIDUALS AND LYTES
[2022-10-08] MEDS: Cisatracurium Besylate 20 MG/10 ML VIAL IVPUSH (11:18)
[2022-10-08 11:43] LABS: Glucose, Whole Blood 217 mg/dL (60-115)
[2022-10-08 11:45] LABS: ABG Base Excess 4.6 mmol/L; ABG HCO3 34 mmol/L (22-26); ABG pCO2 76 mmHg (32-45); ABG pH 7.25 (7.35-7.45); ABG pO2 77 mmHg (83-108)
[2022-10-08] MEDS: vancomycin HCL 750 MG in 0.9 % Sodium Chloride 250 ML 265 MG IV (11:55)
[2022-10-08] MEDS: Insulin Lispro 100 UNIT/ML 3 ML VIAL SUBCUT ×3 (12:03→20:41)
[2022-10-08] MEDS: Lactated Ringers 500 ML 999 ML IV (12:22)
--- NOTE | 2022-10-08 14:03 | P.PNCC_ITS ---
Subjective Subjective Date of Service: 10/08/22 Interval History: Mr. Holder was transferred yesterday to ICU with acute respiratory failure 2? large left sided pneumonia with empyema. According to our [facility] records, the patient initially presented to the [facility] ED in April of 2021 with a similar picture.? At that time, the patient had a large simple left-sided pleural effusion.? Because we had no thoracic coverage at that time, the patient was transferred to [facility].? He was in the hospital there for 2 weeks.? He had his left pleural effusion drained.? The drainage was bloody, negative for malignancy and negative for infection.? During that admission, the patient was seen by thoracic surgery there and was thought to have persistent lung trapping and effusion.? 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 He was given tPA with significant symptomatic improvement, almost back to baseline.? He therefore did not undergo the planned VATS procedure.? He was ultimately discharged to rehab with PleurX-type catheter. I don?t have any f/u from that, but our records show that the patient has had a number of subsequent outpatient visits within the [facility] system for general medical f/u with cardiology (chronic Afib and HTN) and with his PMD (diabetes and health maint).? There is nothing in the notes from those visit that pertains to the aforementioned pneumonia or drainage catheter, including in his last outpatient primary care health maint visit of 09/10/22. I spoke to the patient?s HCP (Demar, cell [phone]) at length about current situation and what happened at [facility] last year.? Demar is the son of the patient?s long time girlfriend, who just recently.? Demar couldn?t tell me much.? He did tell me Mr. Holder was in the ICU here at [facility] about 10 years ago, on dialysis in deep sepsis, and was rescued from the .? That sepsis episode was somehow related to a bad hip he had.? Subsequent to that, he had his hip replaced.? He is not sure which hip. ECHO report from 03/10/22 showed:? Normal LV wall thickness and function, EF 65- 70%.? Moderate septal asymmetric hypertrophy.? Mildly increased RV size with normal function.? Mildly dilated LA and RA.? No significant valvular Doppler abnormalities.? IVC size was normal with greater than 50% inspiratory collapse. HISTORY OF PRESENT ILLNESS: ?On 10/06/22, the patient presented to the walk in clinic with SOB, tachypnea, and cough, and was referred directly to the ED.? See subsequent inpatient notes.? Bottom line is that Chest CT showed a consolidated left lung base with volume loss.? There was a lot a large loculated left-sided pleural effusion with thickening of the wall.? There were multiple foci of air within the collection, possibly secondary to either infection or a bronchopleural fistula. The patient was admitted to Medicine that night by Dr. Vaughn and started on Abx.? Dr. Vaughn had already put in a consult for thoracic surgery.? The patient went into respiratory distress the next morning (yesterday morning), unclear why but I now suspect it was bec he ruptured a bronchopleural fistula (see below).? The patient was still in the ED.? He was seen by NIRMAL Quintanilla, intubated, and lined.? He was transferred to the ICU later in the morning.? Thru the day yesterday, he had a mild lactic acidosis, and required increasing doses of Levophed, up to 0.3ug. ECHO yesterday showed LV size and function normal with ejection fraction about 60%.? No RWMAs.? Right ventricle enlarged with RV:LV cavity ratio about 1.5.? Trace AI by color-flow.? Trace MR by color flow.? Trace TR by color-flow.? An excellent CWD signal was obtained, measuring 2.5 m/sec (gradient 25 mm).? IVC measured by the tech brazer tester was 2.2 cm with about 25% insp collapse.? RVSP 40mm.? The patient had no BP response to a fluid bolus.? Creat increased yest from 0.6 on admission to 1.2.? We put an A-line in.? The case was discussed with IR at length Dr. Degroot at length.? Sputum Gram stain yesterday showed 2+ polys with a polymicrobial justus. Probably because the patient might have been on Eliquis, thoracentesis was delayed until today.? This morning, patient was taken the CT scan for planned thoracentesis and chest tube placement.? On turning the patient into the right lateral decubitus position, about a cupful of very foul-smelling acevedo cruz pus poured out of the patient's endotracheal tube.? I went over to CT immediately. ?The patient became unstable, with blood pressure dropping into the 60s. ?Levophed was increased to 0.6 mcg. ?The procedure was abandoned and the patient brought back to the ICU.? Vasopressin was started and the patient was given a fluid bolus.? He stabilized at a Levophed dose of 0.35 mcg and vasopressin 0.04 units.? I repeated his echo and it showed hyperdynamic fxn, otherwise unchanged from yesterday. This afternoon, Dr. Ambrocio placed a 10Fr pigtail into the empyema at the bedside via US.? About half a cup of the acevedo/cruz pus was obtained and sent to Micro lab.? The catheter was placed to suction.? Post-procedure chest x-ray shows much better expansion of the left lung with significant drainage of the pleural flu id.? Right lung infiltrates appear increased. My exam earlier this afternoon,? the patient was sedated on propofol 30 mcg and fentanyl 125 mcg.? He was on Levophed 0.35 mcg and vasopressin 0.04.? Bicarb drip is at 100 cc/hour.? Heart rate 96, atrial fibrillation.? Blood pressure 112/65.? After Nimbex 20mg, on PC 18, 20/8, 50%, RR was 18, Vt 460cc, Ve 8.2L, PIP 37cm, ETCO2 28mm, Sat 94%.? ABG 7.43/37/82/+1.? Tmax 100.4?.? No JVD at 30?.? Course crackles and tubular sounds on the left.? At least 2+ central edema.? His feet are deeply purpuri and the distal half of his feet are cold.? No dopplerable pulses.? No black areas or dry gangrene (yet). LABORATORY DATA:? Below.? Notably, white count up to 29 this morning.? BUN/creatinine up to 18/1.4, but phosphorus is only 3.8, potassium is 3.7, and bicarb is 23.? CRP is 28.? Albumin is 2.4.? Magnesium 1.7. MICRO:? All the resp specimens, including a specimen of the pus obtained via the ETT after rupture of the BPF in IR this morning, all have the same Gram stain, with polys, GPC and GNRs. IMPRESSION: 1. Underlying chronic Afib. 2. Underlying RHF. 3. Recurrent left pneumonia with empyema, very possibly/likely trapped lung. ?It?s a certainty now that he has a BPF.? My suspicion is that rupture of the BPF is what lead to his sudden resp distress early yest morning. 4. Acute resp failure.? 2? above. 5. Septic shock.? On high dose Levophed and vasopressin. 6. ID:? On vanco and Zosyn.? Should be adequate for now.? Cultures pending. 7. PEPE.? 2? sepsis.? Mild so far, and phos is still low. 8. Significant peripheral vascular disease.? With his high dose pressors, would not be surprised if he loses some toes.? D/W ?Dr. Saldana.? Nothing to do about it at this time.? After he gets better, will refer. 9. Hypomagnasemia. 10. Nutrition.? Started on [employer]. Discussed with Dr. Degroot, Dr. Hanson, and Dr. Contreras at length.? He?ll need decortication next week.? Plan bronch tomorrow. Critical care time:? 2.5+ hours. Critical Care Time (minutes): 150 Physical Exam Vital Signs: Vital Signs: Last Vital Signs Temp 99.7 F 10/08/22 13:00 Pulse 111 H 10/08/22 13:00 Resp 18 10/08/22 13:00 BP 89/55 L 10/08/22 13:00 Pulse Ox 95 10/08/22 13:00 O2 Del Method 10/08/22 13:00 FiO2 60 10/08/22 13:00 BMI result Body Mass Index 30.1 Objective Data Labs CBC & Chem 7: 10/08/22 05:18 10/08/22 05:18 Labs: Laboratory Results - last 24 hr 10/07/22 10/07/22 10/07/22 00:08 16:01 19:18 WBC RBC Hgb Hct MCV MCH MCHC RDW Plt Count MPV Immature Gran % (Auto) Neut % (Auto) Lymph % (Auto) [place] % (Auto) Eos % (Auto) Baso % (Auto) Lymph # (Auto) [place] # (Auto) Eos # (Auto) Baso # (Auto) Abs Immat Gran (auto) Absolute Neuts (auto) Absolute Nucleated RBC Nucleated RBC % (auto) Neutrophils % (Manual) Band Neutrophils % Lymphocytes % (Manual) Monocytes % (Manual) Abs Neuts (Manual) Lymphocytes # (Manual) Monocytes # (Manual) Dohle Bodies Platelet Estimate Giant Platelets Plt Morphology Comment RBC Morphology Macrocytosis [place] Cells O2 Saturation ABG pH at Pt Temp ABG pCO2 at Pt Temp ABG pO2 at Pt Temp ABG HCO3 ABG Base Excess (Actual) VBG pH 7.29 L VBG pCO2 36 VBG pO2 52 VBG HCO3 17 L VBG O2 Saturation 77.0 VBG Base Excess -7.7 Sodium Potassium Chloride Carbon Dioxide Anion Gap BUN Creatinine Estim Creat Clear Calc Estimated GFR POC Glucose 142 H Random Glucose Lactic Acid Lactic Acid F/U @ 2Hr Lactic Acid F/U @ 4Hr 3.2 H* Calcium Phosphorus Magnesium Total Bilirubin AST ALT Alkaline Phosphatase C-Reactive Protein Total Protein Albumin Vancomycin Trough 10/07/22 10/07/22 10/07/22 19:19 19:19 19:54 WBC RBC Hgb Hct MCV MCH MCHC RDW Plt Count MPV Immature Gran % (Auto) Neut % (Auto) Lymph % (Auto) [place] % (Auto) Eos % (Auto) Baso % (Auto) Lymph # (Auto) [place] # (Auto) Eos # (Auto) Baso # (Auto) Abs Immat Gran (auto) Absolute Neuts (auto) Absolute Nucleated RBC Nucleated RBC % (auto) Neutrophils % (Manual) Band Neutrophils % Lymphocytes % (Manual) Monocytes % (Manual) Abs Neuts (Manual) Lymphocytes # (Manual) Monocytes # (Manual) Dohle Bodies Platelet Estimate Giant Platelets Plt Morphology Comment RBC Morphology Macrocytosis [place] Cells O2 Saturation ABG pH at Pt Temp ABG pCO2 at Pt Temp ABG pO2 at Pt Temp ABG HCO3 ABG Base Excess (Actual) VBG pH VBG pCO2 VBG pO2 VBG HCO3 VBG O2 Saturation VBG Base Excess Sodium 140 Potassium 4.3 Chloride 107 Carbon Dioxide 18 L Anion Gap 19 BUN 16 Creatinine 1.26 Estim Creat Clear Calc 59.3 Estimated GFR 56 POC Glucose Random Glucose 156 H Lactic Acid 3.4 H* Lactic Acid F/U @ 2Hr Lactic Acid F/U @ 4Hr Calcium 8.3 L Phosphorus 5.0 H Magnesium 1.5 L Total Bilirubin AST ALT Alkaline Phosphatase C-Reactive Protein Total Protein Albumin Vancomycin Trough 24.5 H 10/07/22 10/07/22 10/08/22 20:24 21:35 05:17 WBC RBC Hgb Hct MCV MCH MCHC RDW Plt Count MPV Immature Gran % (Auto) Neut % (Auto) Lymph % (Auto) [place] % (Auto) Eos % (Auto) Baso % (Auto) Lymph # (Auto) [place] # (Auto) Eos # (Auto) Baso # (Auto) Abs Immat Gran (auto) Absolute Neuts (auto) Absolute Nucleated RBC Nucleated RBC % (auto) Neutrophils % (Manual) Band Neutrophils % Lymphocytes % (Manual) Monocytes % (Manual) Abs Neuts (Manual) Lymphocytes # (Manual) Monocytes # (Manual) Dohle Bodies Platelet Estimate Giant Platelets Plt Morphology Comment RBC Morphology Macrocytosis [place] Cells O2 Saturation ABG pH at Pt Temp ABG pCO2 at Pt Temp ABG pO2 at Pt Temp ABG HCO3 ABG Base Excess (Actual) VBG pH 7.38 VBG pCO2 41 VBG pO2 63 VBG HCO3 25 VBG O2 Saturation 87.0 VBG Base Excess 0.0 Sodium Potassium Chloride Carbon Dioxide Anion Gap BUN Creatinine Estim Creat Clear Calc Estimated GFR POC Glucose 153 H Random Glucose Lactic Acid Lactic Acid F/U @ 2Hr 3.4 H* Lactic Acid F/U @ 4Hr Calcium Phosphorus Magnesium Total Bilirubin AST ALT Alkaline Phosphatase C-Reactive Protein Total Protein Albumin Vancomycin Trough 10/08/22 10/08/22 10/08/22 05:18 05:18 05:18 WBC 29.0 H RBC 3.58 L Hgb 11.8 L Hct 36.2 L MCV 101.1 H MCH 33.0 MCHC 32.6 RDW 17.4 H Plt Count 280 D MPV 9.4 Immature Gran % (Auto) Cancelled Neut % (Auto) Cancelled Lymph % (Auto) Cancelled [place] % (Auto) Cancelled Eos % (Auto) Cancelled Baso % (Auto) Cancelled Lymph # (Auto) Cancelled [place] # (Auto) Cancelled Eos # (Auto) Cancelled Baso # (Auto) Cancelled Abs Immat Gran (auto) Cancelled Absolute Neuts (auto) Cancelled Absolute Nucleated RBC 0.000 Nucleated RBC % (auto) 0.0 Neutrophils % (Manual) 70 Band Neutrophils % 22 H Lymphocytes % (Manual) 1 L Monocytes % (Manual) 7 Abs Neuts (Manual) 26.7 H Lymphocytes # (Manual) 0.3 L Monocytes # (Manual) 2.0 H Dohle Bodies PRESENT Platelet Estimate NORMAL Giant Platelets PRESENT Plt Morphology Comment NORMAL RBC Morphology NOTED Macrocytosis 1+ (5-14) [place] Cells 1+ (0-2) O2 Saturation ABG pH at Pt Temp ABG pCO2 at Pt Temp ABG pO2 at Pt Temp ABG HCO3 ABG Base Excess (Actual) VBG pH VBG pCO2 VBG pO2 VBG HCO3 VBG O2 Saturation VBG Base Excess Sodium 142 Potassium 3.7 Chloride 105 Carbon Dioxide 23 Anion Gap 18 BUN 18 H Creatinine 1.46 H Estim Creat Clear Calc 51.2 Estimated GFR 47 POC Glucose Random Glucose 205 H Lactic Acid Lactic Acid F/U @ 2Hr Lactic Acid F/U @ 4Hr Calcium 8.0 L Phosphorus 3.8 Magnesium 1.7 Total Bilirubin 1.0 AST 16 ALT 9 Alkaline Phosphatase 93 C-Reactive Protein 28.49 H Total Protein 4.6 L Albumin 2.4 L Vancomycin Trough 10/08/22 10/08/22 10/08/22 07:23 08:12 11:38 WBC RBC Hgb Hct MCV MCH MCHC RDW Plt Count MPV Immature Gran % (Auto) Neut % (Auto) Lymph % (Auto) [place] % (Auto) Eos % (Auto) Baso % (Auto) Lymph # (Auto) [place] # (Auto) Eos # (Auto) Baso # (Auto) Abs Immat Gran (auto) Absolute Neuts (auto) Absolute Nucleated RBC Nucleated RBC % (auto) Neutrophils % (Manual) Band Neutrophils % Lymphocytes % (Manual) Monocytes % (Manual) Abs Neuts (Manual) Lymphocytes # (Manual) Monocytes # (Manual) Dohle Bodies Platelet Estimate Giant Platelets Plt Morphology Comment RBC Morphology Macrocytosis [place] Cells O2 Saturation ABG pH at Pt Temp ABG pCO2 at Pt Temp ABG pO2 at Pt Temp ABG HCO3 ABG Base Excess (Actual) VBG pH VBG pCO2 VBG pO2 VBG HCO3 VBG O2 Saturation VBG Base Excess Sodium Potassium Chloride Carbon Dioxide Anion Gap BUN Creatinine Estim Creat Clear Calc Estimated GFR POC Glucose 209 H 217 H Random Glucose Lactic Acid Lactic Acid F/U @ 2Hr Lactic Acid F/U @ 4Hr Calcium Phosphorus Magnesium Total Bilirubin AST ALT Alkaline Phosphatase C-Reactive Protein Total Protein Albumin Vancomycin Trough 16.1 10/08/22 11:39 WBC RBC Hgb Hct MCV MCH MCHC RDW Plt Count MPV Immature Gran % (Auto) Neut % (Auto) Lymph % (Auto) [place] % (Auto) Eos % (Auto) Baso % (Auto) Lymph # (Auto) [place] # (Auto) Eos # (Auto) Baso # (Auto) Abs Immat Gran (auto) Absolute Neuts (auto) Absolute Nucleated RBC Nucleated RBC % (auto) Neutrophils % (Manual) Band Neutrophils % Lymphocytes % (Manual) Monocytes % (Manual) Abs Neuts (Manual) Lymphocytes # (Manual) Monocytes # (Manual) Dohle Bodies Platelet Estimate Giant Platelets Plt Morphology Comment RBC Morphology Macrocytosis [place] Cells O2 Saturation 90.0 ABG pH at Pt Temp 7.25 L ABG pCO2 at Pt Temp 76 H* ABG pO2 at Pt Temp 77 L ABG HCO3 34 H ABG Base Excess (Actual) 4.6 VBG pH VBG pCO2 VBG pO2 VBG HCO3 VBG O2 Saturation VBG Base Excess Sodium Potassium Chloride Carbon Dioxide Anion Gap BUN Creatinine Estim Creat Clear Calc Estimated GFR POC Glucose Random Glucose Lactic Acid Lactic Acid F/U @ 2Hr Lactic Acid F/U @ 4Hr Calcium Phosphorus Magnesium Total Bilirubin AST ALT Alkaline Phosphatase C-Reactive Protein Total Protein Albumin Vancomycin Trough Microbiology Microbiology Results: Microbiology 10/07/22 01:14 Sputum - Induced Gram Stain - Final 10/07/22 01:14 Sputum - Induced Sputum Culture - Preliminary Culture in progress. 10/06/22 18:39 Blood - Venous Blood Culture - Preliminary No growth after 24 hours. 10/06/22 18:41 Blood - Venous Blood Culture - Preliminary No growth after 24 hours. Quality Stroke Does the patient have a stroke diagnosis?: No VTE Prior VTE?: No VTE Risk Level:: Medical - moderate - high VTE Device Contraindication: Treatment Not Indicated VTE Drug Contraindication: N/A - Med Ordered Critical Care Time Critical Care Time (minutes): 150
[2022-10-08 14:12] LABS: Lactic Acid 2.7 mmol/L (0.5-2.0)
[2022-10-08 14:22] LABS: Reflex Lactate? No addnl Lactic Acid
[2022-10-08 14:22] LABS: Cancel Lactic Acid Canceled
[2022-10-08 15:12] LABS: ABG Refer to POC result
[2022-10-08 15:12] LABS: ABG HCO3 25 mmol/L (22-26); ABG pCO2 37 mmHg (32-45); ABG pH 7.43 (7.35-7.45); ABG pO2 82 mmHg (83-108)
[2022-10-08] MEDS: Lidocaine HCl 1 % MPF 5 ML VIAL 10 ML SUBCUT (16:27)
[2022-10-08 16:52] LABS: Glucose, Whole Blood 214 mg/dL (60-115)
--- NOTE | 2022-10-08 17:04 | P.CONPL_ITS ---
History of Present Illness History of Present Illness Consult date: 10/08/22 Requesting physician: Rashi Payan Chief complaint: pneumonia/ plural effusion / resp.failure Narrative: I have seen this gentleman this evening for pulmonary consultation. This patient is currently intubated and on vent support. I have obtained the information mostly from the electronic records, and also discussed with Dr. Rashi payan. This 71 years old gentleman came to the hospital through emergency room yesterday, with increased shortness of breath and marked generalized weakness. More details of the history were not available, but it is noted in the initial intake that he did not have any fever or chills. His chest x-ray was grossly abnormal showing a consolidation of the left lower lobe and large pleural effusion. CT scan of the chest has shown loculated large pleural effusion, with some air bubbles in the lower lobes, The lung seems to be in trapped, and contracted in size. Past history is also obtained from [facility]. He was admitted there in April 2021, with almost is similar picture. He had a pleural effusion over there, a pigtail chest due was placed, with only minimal drainage. While the plan was to do thoracostomy and decortication, patient had developed a MCA stroke, but luckily recovered from that. Because of his poor surgical risk at that time no further surgical intervention was attempted. Patient was discharged home with an Aspira cath. There being no significant drainage for 3 weeks this catheter was removed in May 2021. The details of his history between May 2021 and up until now or not clear. My impression is that he has had this in a traped left lung and thick-walled organized empyema of the left chest. AFTER HIS INITIAL EVALUATION IN THE EMERGENCY ROOM THIS GENTLEMAN WAS STARTED ON BROAD-SPECTRUM ANTIBIOTIC INCLUDING ZOSYN AND VANCOMYCIN. AND STARTED ON OXYGEN SUPPLEMENTATION. SUBSEQUENTLY HE DECOMPENSATED QUICKLY AND DEVELOPED RESPIRATORY FAILURE, HE WAS TRANSFERRED TO INTENSIVE CARE UNIT, HAS BEEN INTUBATED AND IS ON VENT SUPPORT. This patient does have multiple comorbidities including hypertension type 2 diabetes mellitus hyperlipidemia BPH and osteoarthritis. I am sure he also has significant degree of chronic obstructive pulmonary disease. THIS GENTLEMAN HAS HISTORY OF EXCESSIVE SMOKING OF TOBACCO AND ALCOHOL ABUSE. Review of Systems Review of Systems: Yes Unobtainable due to mental condition [facility] Past Medical History Medical History (Updated 10/08/22 @ 17:18 by Jorge Hanson MD) Alcohol abuse Atrial fibrillation BPH (benign prostatic hyperplasia) Chronic atrial fibrillation Diabetic nephropathy Diverticulitis Hypercholesterolemia Hypertension Macrocytosis without anemia Osteoarthritis Overweight (BMI 25.0-29.9) Peripheral vascular disease Pneumonia Respiratory failure Sepsis Tobacco abuse Type 2 diabetes mellitus with hyperglycemia Vitamin D deficiency Family History Family History Father Cancer of back Son In good health Surgical History Surgical History Colostomy status History of appendectomy History of colonoscopy History of hip replacement History of laparotomy History of surgery History of surgery Status post Bret procedure Social History Social History Housing: House Alcohol intake: never Patient Tobacco Use Status: Former Tobacco user (two months ago) Cigarette Packs Per Day: 0.5 e-Cigarette/Vaping Use: Never Used Second Hand Smoke Exposure: No service: No Current occupational status: retired Cognitive needs: No Hearing needs: No Vision needs: Yes Meds Allergies Allergy/AdvReac Type Severity Reaction Status Date / Time No Known Allergies Allergy Verified 10/06/22 15:01 Active Medications: Current Medications Acetaminophen (Acetaminophen 325 Mg Tablet) 650 mg PO Q6H PRN PRN Reason: Pain, Mild (Pain Scale 1-3) Chlorhexidine Gluconate (Chlorhexidine Gluc Oral Rinse 15 Ml Mouthwash) 15 ml BUCCAL TID [facility] Last Admin: 10/08/22 13:44 Dose: 15 ml Fentanyl (Fentanyl Citrate/Pf 100 Mcg/2 Ml Vial) 50 mcg IVPUSH Q5M PRN; Pr otocol PRN Reason: WOB Fentanyl (Fentanyl Citrate/Pf 100 Mcg/2 Ml Vial) 100 mcg IVPUSH Q5M PRN; Protocol PRN Reason: Severe WOB Heparin Sodium (Porcine) (Heparin Sodium,Porcine 5,000 Unit/Ml Vial) 5,000 unit SUBCUT Q8H [facility] Last Admin: 10/08/22 12:09 Dose: 5,000 unit Propofol (Diprivan) 1,000 mg in 100 mls @ 0 mls/hr IVCONT .Q0M [facility]; Protocol Last Admin: 10/08/22 13:44 Dose: 30 mcg/kg/min, 16.54 mls/hr Norepinephrine Bitartrate (Levophed) 8 mg in 250 mls @ 0 mls/hr IVCONT .Q0M [facility]; Protocol Last Admin: 10/08/22 15:26 Dose: 0.35 mcg/kg/min, 60.31 mls/hr Diltiazem HCl 125 mg/ Sodium (Chloride) 125 mls @ 0 mls/hr IVCONT .Q0M [facility]; Protocol Last Titration: 10/07/22 16:38 Dose: 0 mg/hr, 0 mls/hr Piperacillin Sod/Tazobactam (Sod 4.5 gm/ Sodium Chloride) 100 mls @ 200 mls/hr IV Q6H [facility] Last Infusion: 10/08/22 14:23 Dose: Infused Fentanyl (Sublimaze/Ns) 1,000 mcg in 100 mls @ 0 mls/hr IVCONT .Q0M [facility]; Protocol Last Admin: 10/08/22 10:00 Dose: 100 mcg/hr, 10 mls/hr Sodium Bicarbonate 150 meq/ (Dextrose) 1,000 mls @ 100 mls/hr IV .Q10H [facility] Last Admin: 10/08/22 07:50 Dose: 100 mls/hr Vancomycin HCl 750 mg/ Sodium (Chloride) 265 mls @ 265 mls/hr IV Q24H [facility] Last Infusion: 10/08/22 13:00 Dose: Infused Vasopressin 20 unit/ Sodium (Chloride) 101 mls @ 12.12 mls/hr IVCONT .Q8H20M [facility] Last Admin: 10/08/22 11:24 Dose: 0.04 unit/min, 12.12 mls/hr Albumin Human (Kedbumin 25 %) 100 mls @ 100 mls/hr IV Q6H [facility] Stop: 10/09/22 02:29 Last Infusion: 10/08/22 13:20 Dose: Infused Insulin Human Lispro (Insulin Lispro 100 Unit/Ml 3 Ml Vial) 0 unit SUBCUT QIDACHS [facility]; Protocol Last Admin: 10/08/22 16:53 Dose: 4 unit Morphine Sulfate (Morphine Sulfate 2 Mg/Ml Cartridge) 2 mg IVPUSH Q2H PRN; Protocol PRN Reason: Dyspnea Last Admin: 10/07/22 05:15 Dose: 2 mg Pantoprazole Sodium (Pantoprazole Sodium 40 Mg/10 Ml Vial) 40 mg IVPUSH DAILY@0630 [facility] Last Admin: 10/08/22 05:50 Dose: 40 mg Pharmacy Consult (Consult Rx Perform Med Rec) 1 each MISCELLANE ONCE PRN PRN Reason: Consult order Pharmacy Consult (Consult Rx Vancomycin Dosing) 1 each MISCELLANE DAILY PRN PRN Reason: Consult order Sodium Chloride (0.9 % Sodium Chloride Flush 3 Ml Syringe) 3 ml IVFLUSH QSHIFT [facility] Last Admin: 10/08/22 16:49 Dose: Not Given Home Medications Medication Instructions Recorded Confirmed Last Taken Type acetaminophen 325 mg tablet 650 mg PO Q8H PRN Pain 05/28/21 10/06/22 Unknown History (Tylenol) ascorbate calcium (vitamin C) 500 500 mg PO DAILY 10/15/21 10/06/22 10/06/22 History mg tablet Physical Exam Vital Signs: Vital Signs: Last Vital Signs Temp 99.5 F 10/08/22 16:00 Pulse 119 H 10/08/22 16:00 Resp 18 10/08/22 16:00 BP 108/62 10/08/22 16:00 Pulse Ox 88 L 10/08/22 16:00 O2 Del Method 10/08/22 16:00 FiO2 60 10/08/22 16:19 BMI result Body Mass Index 30.1 THE PATIENT IS INTUBATED, ON VENT SUPPORT, FULLY SEDATED, AND NONCOMMUNICATIVE AT THIS TIME. ON PERCUSSION THERE IS DULLNESS OVER THE WHOLE LEFT CHEST. ON AUSCULTATION HE HAS GOOD AERATION OF THE RIGHT LONG, AND ONLY POOR AERATION ON THE LEFT SIDE. NO DEFINITE WHEEZES OR. CREPITATIONS ARE HEARD. Results Laboratory Findings CBC and BMP: 10/08/22 05:18 10/08/22 05:18 ABG, PT/INR, D-dimer: PT/INR, D-dimer PT 15.7 SEC (10.0-13.1) H 10/07/22 08:05 INR 1.4 (0.9-1.1) H 10/07/22 08:05 Abnormal lab findings: Abnormal Labs 10/06/22 10/06/22 10/06/22 18:41 18:41 18:41 WBC 12.9 H RBC 3.67 L Hgb 12.1 L Hct 37.2 L MCV 101.4 H RDW 17.5 H MPV 9.2 L Immature Gran % (Auto) 0.5 H Neut % (Auto) 83.7 H Lymph % (Auto) 3.6 L [place] % (Auto) 11.9 H Lymph # (Auto) 0.5 L [place] # (Auto) 1.5 H Abs Immat Gran (auto) 0.07 H Absolute Neuts (auto) 10.8 H Band Neutrophils % Lymphocytes % (Manual) Abs Neuts (Manual) Lymphocytes # (Manual) Monocytes # (Manual) PT INR ABG pH at Pt Temp ABG pCO2 at Pt Temp ABG pO2 at Pt Temp ABG HCO3 VBG pH VBG HCO3 Carbon Dioxide BUN Creatinine POC Glucose Random Glucose 153 H Lactic Acid 2.9 H* Lactic Acid F/U @ 2Hr Lactic Acid F/U @ 4Hr Calcium Phosphorus Magnesium Alkaline Phosphatase 145 H D C-Reactive Protein B-Natriuretic Peptide Total Protein 6.1 L Albumin 3.1 L Ur Specific [place] Urine Blood Urine RBC Vancomycin Trough 10/06/22 10/06/22 10/06/22 18:41 21:06 22:38 WBC RBC Hgb Hct MCV RDW MPV Immature Gran % (Auto) Neut % (Auto) Lymph % (Auto) [place] % (Auto) Lymph # (Auto) [place] # (Auto) Abs Immat Gran (auto) Absolute Neuts (auto) Band Neutrophils % Lymphocytes % (Manual) Abs Neuts (Manual) Lymphocytes # (Manual) Monocytes # (Manual) PT INR ABG pH at Pt Temp ABG pCO2 at Pt Temp ABG pO2 at Pt Temp ABG HCO3 VBG pH VBG HCO3 Carbon Dioxide BUN Creatinine POC Glucose 121 H Random Glucose Lactic Acid Lactic Acid F/U @ 2Hr 2.7 H* Lactic Acid F/U @ 4Hr Calcium Phosphorus Magnesium Alkaline Phosphatase C-Reactive Protein B-Natriuretic Peptide 248 H Total Protein Albumin Ur Specific [place] Urine Blood Urine RBC Vancomycin Trough 10/06/22 10/07/22 10/07/22 23:36 00:08 01:11 WBC RBC Hgb Hct MCV RDW MPV Immature Gran % (Auto) Neut % (Auto) Lymph % (Auto) [place] % (Auto) Lymph # (Auto) [place] # (Auto) Abs Immat Gran (auto) Absolute Neuts (auto) Band Neutrophils % Lymphocytes % (Manual) Abs Neuts (Manual) Lymphocytes # (Manual) Monocytes # (Manual) PT INR ABG pH at Pt Temp ABG pCO2 at Pt Temp ABG pO2 at Pt Temp ABG HCO3 VBG pH VBG HCO3 Carbon Dioxide BUN Creatinine POC Glucose Random Glucose Lactic Acid Lactic Acid F/U @ 2Hr Lactic Acid F/U @ 4Hr 3.1 H* 3.2 H* Calcium Phosphorus Magnesium Alkaline Phosphatase C-Reactive Protein B-Natriuretic Peptide Total Protein Albumin Ur Specific [place] >= 1.030 H Urine Blood Small (1+) H Urine RBC 6-10 H Vancomycin Trough 10/07/22 10/07/22 10/07/22 04:25 05:09 05:09 WBC 19.6 H RBC 3.89 L Hgb 12.7 L Hct 40.4 L MCV 103.9 H RDW 17.7 H MPV 9.2 L Immature Gran % (Auto) 1.1 H Neut % (Auto) 82.7 H Lymph % (Auto) 4.6 L [place] % (Auto) 11.2 H Lymph # (Auto) 0.9 L [place] # (Auto) 2.2 H Abs Immat Gran (auto) 0.21 H Absolute Neuts (auto) 16.2 H Band Neutrophils % Lymphocytes % (Manual) Abs Neuts (Manual) Lymphocytes # (Manual) Monocytes # (Manual) PT INR ABG pH at Pt Temp 7.07 L* ABG pCO2 at Pt Temp 89 H* ABG pO2 at Pt Temp ABG HCO3 VBG pH VBG HCO3 Carbon Dioxide BUN Creatinine POC Glucose Random Glucose Lactic Acid 2.4 H* Lactic Acid F/U @ 2Hr Lactic Acid F/U @ 4Hr Calcium Phosphorus Magnesium Alkaline Phosphatase C-Reactive Protein B-Natriuretic Peptide Total Protein Albumin Ur Specific [place] Urine Blood Urine RBC Vancomycin Trough 10/07/22 10/07/22 10/07/22 05:09 07:58 08:05 WBC RBC Hgb Hct MCV RDW MPV Immature Gran % (Auto) Neut % (Auto) Lymph % (Auto) [place] % (Auto) Lymph # (Auto) [place] # (Auto) Abs Immat Gran (auto) Absolute Neuts (auto) Band Neutrophils % Lymphocytes % (Manual) Abs Neuts (Manual) Lymphocytes # (Manual) Monocytes # (Manual) PT INR ABG pH at Pt Temp ABG pCO2 at Pt Temp ABG pO2 at Pt Temp ABG HCO3 VBG pH VBG HCO3 Carbon Dioxide 20 L BUN Creatinine POC Glucose 183 H Random Glucose 191 H Lactic Acid Lactic Acid F/U @ 2Hr Lactic Acid F/U @ 4Hr Calcium Phosphorus Magnesium Alkaline Phosphatase C-Reactive Protein B-Natriuretic Peptide 486 H Total Protein Albumin Ur Specific [place] Urine Blood Urine RBC Vancomycin Trough 10/07/22 10/07/22 10/07/22 08:05 08:05 11:19 WBC RBC Hgb Hct MCV RDW MPV Immature Gran % (Auto) Neut % (Auto) Lymph % (Auto) [place] % (Auto) Lymph # (Auto) [place] # (Auto) Abs Immat Gran (auto) Absolute Neuts (auto) Band Neutrophils % Lymphocytes % (Manual) Abs Neuts (Manual) Lymphocytes # (Manual) Monocytes # (Manual) PT 15.7 H INR 1.4 H ABG pH at Pt Temp ABG pCO2 at Pt Temp ABG pO2 at Pt Temp ABG HCO3 VBG pH VBG HCO3 Carbon Dioxide BUN Creatinine POC Glucose 147 H Random Glucose Lactic Acid Lactic Acid F/U @ 2Hr 3.0 H* Lactic Acid F/U @ 4Hr Calcium Phosphorus Magnesium Alkaline Phosphatase C-Reactive Protein B-Natriuretic Peptide Total Protein Albumin Ur Specific [place] Urine Blood Urine RBC Vancomycin Trough 10/07/22 10/07/22 10/07/22 11:40 16:01 19:18 WBC RBC Hgb Hct MCV RDW MPV Immature Gran % (Auto) Neut % (Auto) Lymph % (Auto) [place] % (Auto) Lymph # (Auto) [place] # (Auto) Abs Immat Gran (auto) Absolute Neuts (auto) Band Neutrophils % Lymphocytes % (Manual) Abs Neuts (Manual) Lymphocytes # (Manual) Monocytes # (Manual) PT INR ABG pH at Pt Temp ABG pCO2 at Pt Temp ABG pO2 at Pt Temp ABG HCO3 VBG pH 7.26 L 7.29 L VBG HCO3 19 L 17 L Carbon Dioxide BUN Creatinine POC Glucose 142 H Random Glucose Lactic Acid Lactic Acid F/U @ 2Hr Lactic Acid F/U @ 4Hr Calcium Phosphorus Magnesium Alkaline Phosphatase C-Reactive Protein B-Natriuretic Peptide Total Protein Albumin Ur Specific [place] Urine Blood Urine RBC Vancomycin Trough 10/07/22 10/07/22 10/07/22 19:19 19:19 19:54 WBC RBC Hgb Hct MCV RDW MPV Immature Gran % (Auto) Neut % (Auto) Lymph % (Auto) [place] % (Auto) Lymph # (Auto) [place] # (Auto) Abs Immat Gran (auto) Absolute Neuts (auto) Band Neutrophils % Lymphocytes % (Manual) Abs Neuts (Manual) Lymphocytes # (Manual) Monocytes # (Manual) PT INR ABG pH at Pt Temp ABG pCO2 at Pt Temp ABG pO2 at Pt Temp ABG HCO3 VBG pH VBG HCO3 Carbon Dioxide 18 L BUN Creatinine POC Glucose Random Glucose 156 H Lactic Acid 3.4 H* Lactic Acid F/U @ 2Hr Lactic Acid F/U @ 4Hr Calcium 8.3 L Phosphorus 5.0 H Magnesium 1.5 L Alkaline Phosphatase C-Reactive Protein B-Natriuretic Peptide Total Protein Albumin Ur Specific [place] Urine Blood Urine RBC Vancomycin Trough 24.5 H 10/07/22 10/07/22 10/08/22 20:24 21:35 05:18 WBC 29.0 H RBC 3.58 L Hgb 11.8 L Hct 36.2 L MCV 101.1 H RDW 17.4 H MPV Immature Gran % (Auto) Neut % (Auto) Lymph % (Auto) [place] % (Auto) Lymph # (Auto) [place] # (Auto) Abs Immat Gran (auto) Absolute Neuts (auto) Band Neutrophils % 22 H Lymphocytes % (Manual) 1 L Abs Neuts (Manual) 26.7 H Lymphocytes # (Manual) 0.3 L Monocytes # (Manual) 2.0 H PT INR ABG pH at Pt Temp ABG pCO2 at Pt Temp ABG pO2 at Pt Temp ABG HCO3 VBG pH VBG HCO3 Carbon Dioxide BUN Creatinine POC Glucose 153 H Random Glucose Lactic Acid Lactic Acid F/U @ 2Hr 3.4 H* Lactic Acid F/U @ 4Hr Calcium Phosphorus Magnesium Alkaline Phosphatase C-Reactive Protein B-Natriuretic Peptide Total Protein Albumin Ur Specific [place] Urine Blood Urine RBC Vancomycin Trough 10/08/22 10/08/22 10/08/22 05:18 07:23 11:38 WBC RBC Hgb Hct MCV RDW MPV Immature Gran % (Auto) Neut % (Auto) Lymph % (Auto) [place] % (Auto) Lymph # (Auto) [place] # (Auto) Abs Immat Gran (auto) Absolute Neuts (auto) Band Neutrophils % Lymphocytes % (Manual) Abs Neuts (Manual) Lymphocytes # (Manual) Monocytes # (Manual) PT INR ABG pH at Pt Temp ABG pCO2 at Pt Temp ABG pO2 at Pt Temp ABG HCO3 VBG pH VBG HCO3 Carbon Dioxide BUN 18 H Creatinine 1.46 H POC Glucose 209 H 217 H Random Glucose 205 H Lactic Acid Lactic Acid F/U @ 2Hr Lactic Acid F/U @ 4Hr Calcium 8.0 L Phosphorus Magnesium Alkaline Phosphatase C-Reactive Protein 28.49 H B-Natriuretic Peptide Total Protein 4.6 L Albumin 2.4 L Ur Specific [place] Urine Blood Urine RBC Vancomycin Trough 10/08/22 10/08/22 10/08/22 11:39 13:28 15:06 WBC RBC Hgb Hct MCV RDW MPV Immature Gran % (Auto) Neut % (Auto) Lymph % (Auto) [place] % (Auto) Lymph # (Auto) [place] # (Auto) Abs Immat Gran (auto) Absolute Neuts (auto) Band Neutrophils % Lymphocytes % (Manual) Abs Neuts (Manual) Lymphocytes # (Manual) Monocytes # (Manual) PT INR ABG pH at Pt Temp 7.25 L ABG pCO2 at Pt Temp 76 H* ABG pO2 at Pt Temp 77 L 82 L ABG HCO3 34 H VBG pH VBG HCO3 Carbon Dioxide BUN Creatinine POC Glucose Random Glucose Lactic Acid 2.7 H* Lactic Acid F/U @ 2Hr Lactic Acid F/U @ 4Hr Calcium Phosphorus Magnesium Alkaline Phosphatase C-Reactive Protein B-Natriuretic Peptide Total Protein Albumin Ur Specific [place] Urine Blood Urine RBC Vancomycin Trough 10/08/22 16:49 WBC RBC Hgb Hct MCV RDW MPV Immature Gran % (Auto) Neut % (Auto) Lymph % (Auto) [place] % (Auto) Lymph # (Auto) [place] # (Auto) Abs Immat Gran (auto) Absolute Neuts (auto) Band Neutrophils % Lymphocytes % (Manual) Abs Neuts (Manual) Lymphocytes # (Manual) Monocytes # (Manual) PT INR ABG pH at Pt Temp ABG pCO2 at Pt Temp ABG pO2 at Pt Temp ABG HCO3 VBG pH VBG HCO3 Carbon Dioxide BUN Creatinine POC Glucose 214 H Random Glucose Lactic Acid Lactic Acid F/U @ 2Hr Lactic Acid F/U @ 4Hr Calcium Phosphorus Magnesium Alkaline Phosphatase C-Reactive Protein B-Natriuretic Peptide Total Protein Albumin Ur Specific [place] Urine Blood Urine RBC Vancomycin Trough Microbiology: Microbiology 10/08/22 14:12 Sputum - Suctioned Gram Stain - Final 10/08/22 08:22 Sputum - Suctioned Gram Stain - Final 10/07/22 01:14 Sputum - Induced Gram Stain - Final 10/07/22 01:14 Sputum - Induced Sputum Culture - Preliminary Culture in progress. 10/06/22 18:39 Blood - Venous Blood Culture - Preliminary No growth after 24 hours. 10/06/22 18:41 Blood - Venous Blood Culture - Preliminary No growth after 24 hours. 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 AT PRESENT HE MAY HAVE ACTIVE PNEUMONIA /CONSOLIDATION OF THE LEFT LUNG. ACUTE RESPIRATORY FAILURE , REQUIRING INTUBATION AND VENT SUPPORT. RECC . CONTINUE ON FULL VENT SUPPORT, AND SUPPORTIVE CARE. CONTINUE ON BROAD-SPECTRUM ANTIBIOTICS. THORACIC SURGICAL CONSULTATION FOR FUTURE MANAGEMENT. THIS GENTLEMAN WOULD NEED LEFT PLEURAL DECORTICATION . AT PRESENT HE IS VERY HIGH RISK FOR ANY MAJOR SURGERY. A QUICK BRONCHOSCOPIC EXAM AT THIS TIME WILL BE HELPFUL. I WILL DISCUSS WITH DR. BOSE ARE IT MAY BE DONE BY THORACIC SURGERY. Procedures Date of Service Date of Service: 10/08/22 Arterial Line Size (Gauge): 20
--- NOTE | 2022-10-08 19:13 | PC.NURSE ---
At approximately pt brought down to IR for chest tube placement, unsuccessful with the procedure as pt started to drain cruz pus into the ETtube, BP unstable in the low 60/50s, MD titrated Levo, See MAR. Pt was brought back to the unit and received IVP Nimbex for vent synchrony per MD's order and was stabilized with Vasopressin at 0.04 and 500ml LR bolus. Pt later had the Ramirez-Chinchilla drainage catheter placed at bedside, upon insertion, pt drained the same looking cruz colored pus into the bottle, and specimen sent to Lab for study per Md's order. Pt later hooked to LWS at 200mmhg per MD order and has minimal bloody drainage in the tubing only. Pt continues to have dim LS throughout, PRN suctioned at beside with scant cruz sputum. Pt tolerating the vent settings, PC 16/8 at 50% per MD, tolerating well in the mid to high 90s. Pt is Afib with occasional PVCs rate 80-120s, faint pedal pulses to the dorsalis pedis b/l, via doppler. Pt's TF started at 1500 at 20mls/hr and tolerating well with minimal residuals. Pt has the torres catheter CDI, draining clear yellow urine. Pt's skin is dry and scaly otherwise, bathed this shift and skin care provided as needed. Repositioned every 2 hrs and as needed. Pt currently resting in bed with no acute distress. Brother called for update, all questions answered. Safety maintained throughout.
[2022-10-08] MEDS: propofoL 1,000 MG/100 ML VIAL 11.03 MG IVCONT (19:58)
[2022-10-08 20:42] LABS: Glucose, Whole Blood 167 mg/dL (60-115)
--- NOTE | 2022-10-08 22:54 | PC.NURSE ---
TUBE FEEDS AT 2000 = 100 ML TUBE FEED MIXED WITH BILE RESIDUAL TUBE FEEDS REMAINS AT 20 ML/HR - WILL PASS ON TO ONCOMING NURSE
[2022-10-09] VITALS (34 sets, daily range): BP systolic 72–131; BP diastolic 44–75; PULSE 84–124; RESP 12–24; TEMP 34.8–37.7; O2SAT 90–96; BMI 31.7
[2022-10-09] MEDS: 0.9 % Sodium Chloride Flush 3 ML SYRINGE IVFLUSH ×3 (00:29→16:19)
[2022-10-09] MEDS: Piperacillin Sodium/Tazobactam 4.5 GM in 0.9 % Sodium Chloride 100 ML IV ×4 (02:15→19:22)
[2022-10-09] MEDS: Albumin Human 25 % 100 ML IV (02:17)
[2022-10-09] MEDS: Sodium Bicarbonate 8.4% 150 MEQ in Dextrose 5 % 850 ML 100 MEQ IV (02:19)
[2022-10-09] MEDS: fentaNYL citrate/NS 1,000 MCG/100 ML PLAST..BAG 10 MCG IVCONT ×3 (03:42→23:47)
[2022-10-09 05:22] LABS: VBG Base Excess 13.5 mmol/L; VBG HCO3 39 mmol/L (22-26); VBG pCO2 56 mmHg; VBG pH 7.45 (7.32-7.43); VBG pO2 45 mmHg
[2022-10-09] MEDS: Pantoprazole Sodium 40 MG/10 ML VIAL IVPUSH (05:29)
[2022-10-09 05:31] LABS: Hematocrit 29.2 % (42.0-52.0); Hemoglobin 9.6 g/dl (14.0-18.0); Mean Corpuscular HGB Conc 32.9 g/dl (31.0-36.0); Mean Corpuscular Hemoglobin 33.1 pg (27.0-33.0); Mean Corpuscular Volume 100.7 fL (80.0-98.0); Mean Platelet Volume 9.4 fL (9.4-12.4); Platelet Count 169 X10*3/uL (160-400); Red Cell Distribution Width 17.6 % (11.0-16.0); White Blood Count 20.3 X10*3/uL (4.8-10.8)
[2022-10-09 05:55] LABS: Albumin Level 3.2 g/dL (3.5-5.0); Anion Gap 15 (12-20); Blood Urea Nitrogen 19 mg/dL (9-16); Calcium 8.3 mg/dL (8.4-10.2); Carbon Dioxide 30 mmol/L (22-29); Chloride 102 mmol/L (96-108); Estimated Glomerular Filt Rate 48; Glucose Random 168 mg/dL (60-115); Phosphorus 2.6 mg/dL (2.7-4.5); Potassium 2.7 mmol/L (3.3-5.1); Sodium 144 mmol/L (135-145)
[2022-10-09 05:56] LABS: Lactic Acid 2.8 mmol/L (0.5-2.0)
[2022-10-09 05:59] LABS: Vancomycin Random 14.6 mcg/mL (15-20)
[2022-10-09] MEDS: propofoL 1,000 MG/100 ML VIAL 11.03 MG IVCONT ×3 (06:17→22:25)
--- NOTE | 2022-10-09 06:46 | HE.PHANOTE ---
RE: vanco Trough was drawn early today 10/09/22 and came back at 14.6mg/L. Increased dose to 1000mg Q24H with predicted AUC 523mg/L. Next level to be drawn after two doses on 10/11/22 @0800. Will continue to monitor renal function.
[2022-10-09 07:25] LABS: Reflex Lactate? Lactic Acid Added
[2022-10-09 08:01] LABS: Glucose, Whole Blood 192 mg/dL (60-115)
--- NOTE | 2022-10-09 08:34 | MHC.SHP ---
Pre-Procedural Eval Section A Date of Service: 10/09/22 The patient is an INPATIENT: Yes The History & Physical has been completed within 30 days and I have reviewed it.: Yes Section B Chief Complaint: pneumonia/ plural effusion / resp.failure Allergies: Allergies Allergy/AdvReac Type Severity Reaction Status Date / Time No Known Allergies Allergy Verified 10/06/22 15:01 Plan I have reviewed the history and physical and performed a pertinent physical examination on my patient. No changes have occurred unless specified.
[2022-10-09 08:58] LABS: ~Lactic Acid-LAB USE ONLY 2.8 mmol/L (0.5-2.0)
[2022-10-09] MEDS: vancomycin HCL 1,000 MG in 0.9 % Sodium Chloride 250 ML 270 MG IV (09:19)
[2022-10-09] MEDS: Chlorhexidine Gluc Oral Rinse 15 ML MOUTHWASH BUCCAL ×3 (09:19→20:30)
[2022-10-09] MEDS: Potassium Phosphate/NS 15 MMOL/250 ML PLAST..BAG 62.5 MMOL IV ×2 (09:19→13:48)
[2022-10-09] MEDS: Insulin Lispro 100 UNIT/ML 3 ML VIAL SUBCUT ×3 (09:27→16:19)
--- NOTE | 2022-10-09 09:33 | MHC.CLN ---
F/U PT REMIANS INTUBATED AND SEDATED DISCUSSED AT ROUNDS; PLAN TO START REGLAN AND LACTULOSE R/T ELEVATED GRVs TF CURRENTLY RUNNING AT 20ML/HR PROVIDES 480KCALS (771KCALS WITH SEDATION (42% EST KCAL NEEDS), 30G PROTEIN PT'S GOAL: PROMOTE AT MAX GOAL RATE 60ML/HR TO PROVIDE 1440KCALS (1877KCALS WITH SEDATION; 23KCALS/KG), 90G PROTEIN (1.1G/KG), 1208ML FREE WATER FROM FORMULA MONITOR TOLERANCE, RESIDUALS AND LYTES
[2022-10-09] MEDS: Potassium Chloride Packet 20 MEQ PACKET 40 MEQ G-TUBE ×2 (10:03→13:10)
[2022-10-09 10:06] LABS: Reflex Lactate? 2 Y
[2022-10-09 10:27] LABS: VBG Base Excess 15.7 mmol/L; VBG HCO3 41 mmol/L (22-26); VBG pCO2 57 mmHg; VBG pH 7.46 (7.32-7.43); VBG pO2 44 mmHg
[2022-10-09 11:26] LABS: Glucose, Whole Blood 183 mg/dL (60-115)
--- NOTE | 2022-10-09 11:34 | PC.RT ---
Pt had bronchoscopy this am with Dr. Contreras. Pt was hyperoxygenated 30 mins prior with 100% fio2, A medium AMBU bronchoscope was introduced By . BAL X 2 50 ml iced 0.9%NSS with 25cc return sample were collected in sputum traps and labeled with pt name, rec#, and location where sample was obtained. used forcepts x 2 for tissue samples. These samples were labeled with date, location and in formalin solution. Pt was returned to [facility] ventilation settings previous to procedure and maryam well, pt in no resp distress.
--- NOTE | 2022-10-09 11:55 | P.BOP_ITS ---
Brief Operative Note Date of Service: 10/09/22 Pre-op diagnosis: pneumonia Post-op diagnosis: other (pneumonia, lung density) Procedure: bronchoscopy Implants: Surgeon: Anthony Contreras MD Was an Residential Mortgage Manager used for this Procedure?: No Estimated blood loss (mL): 0 Pathology: other (LLL biopsies) Condition: stable Disposition: no change
[2022-10-09] MEDS: Heparin Sodium,Porcine 5,000 UNIT/ML VIAL 5000 UNIT SUBCUT ×2 (13:09→20:31)
[2022-10-09] MEDS: Lactulose 20 GM/30 ML SOLUTION G-TUBE ×2 (13:10→20:30)
[2022-10-09] MEDS: Metoclopramide HCl 10 MG/2 ML VIAL IVPUSH ×2 (13:10→19:22)
[2022-10-09 13:37] LABS: Venous Blood Gas Refer to POC result
--- NOTE | 2022-10-09 14:09 | MHC.CM.PN ---
Patient remains in ICU. CM continues to follow patient for d/c planning when med appropriate.
[2022-10-09 16:14] LABS: Glucose, Whole Blood 169 mg/dL (60-115)
--- NOTE | 2022-10-09 16:19 | PM.PNTS ---
Subjective Subjective Date of Service: 10/09/22 Interval history: pt remains intubated and sedated. Physical Exam Vital Signs: Vital Signs: Last Vital Signs Temp 99 F 10/09/22 16:00 Pulse 105 H 10/09/22 16:00 Resp 23 H 10/09/22 16:00 BP 109/64 10/09/22 16:00 Pulse Ox 95 10/09/22 16:00 O2 Del Method 10/09/22 16:00 FiO2 50 10/09/22 16:00 BMI result Body Mass Index 31.7 Levophed, Propofol, Fentanyl drips. Zosyn and Vanco Const: Other: intubated and sedated HEENT: Head: Yes normal to inspection Neck: Neck: Yes no JVD Lymphatic: no lymphedema noted Chest: Chest palpation & inspection: normal inspection of the chest Resp: Other: bilateral rhonchi throughout. Left pigtail in place Cardio: Rate: regular rate Rhythm: abnormal rhythm GI: Other: + mild abd distention, hypoactive bowel sounds : Other: Luna in place Skin: Other: no rashes Neuro: Other: intubated and sedated Extrem: Other: BUE with 4+ peripheral edema in hands. BLE with +2-3 edema. chronic venous insufficiency over BLE Psych: Other: intubated and sedated Procedures Date of Service Date of Service: 10/09/22 Arterial Line Size (Gauge): 20 Progress Note: A&P Assessment and plan (1) Pneumonia: Start date: 10/06/22 Status: Acute (2) Respiratory failure: Start date: 10/07/22 Status: Acute (3) Recurrent left pleural effusion: Start date: 10/06/22 Status: Acute Plan Mr. Holder is a 71 y/o gentleman who was admitted on 10/06/22 with Pneumonia and recurrent left effusion who had a respiratory arrest the following am and was intubated. He subsequently underwent a diagnostic tap of the left pleural space and placement of a pigtail. Cultures pending. CXR on 10/08 demonstrates: Decreased opacification/pleural fluid in the region of the newly placed left pigtail catheter. Consolidation in the left upper lobe is not significantly changed. but Right lung infiltrates appear increased. Continue antibiotic therapy for Proteus organisms which resulted from sputum cultures. Await finalization of all cultures and specimen sent from bronch today.. Keep left pigtail to LCS and monitor drainage. Timing of decortication pending. Likely repeat a CT chest early next week. Will continue to monitor. Time Spent With Patient Time: Total time managing care of this patient today ____ minutes. Quality Stroke Does the patient have a stroke diagnosis?: No VTE Prior VTE?: No VTE Risk Level:: Medical - moderate - high VTE Device Contraindication: Treatment Not Indicated VTE Drug Contraindication: N/A - Med Ordered
[2022-10-09 17:14] LABS: Venous Blood Gas Refer to POC result
--- NOTE | 2022-10-09 18:11 | P.PNCC_ITS ---
Subjective Subjective Date of Service: 10/09/22 Interval History: Mr. Holder was transferred to ICU on Oct 07 with acute respiratory failure 2? large left sided pneumonia with empyema. According to our [facility] records, the patient presented to the [place] ED in April of 2021 with a similar picture.? At that time, the patient had a large simple left-sided pleural effusion.? Because we had no thoracic coverage at that time, the patient was transferred to [facility].? He was in the hospital there for 2 weeks.? He had his left pleural effusion drained.? The drainage was bloody, negative for malignancy and negative for infection.? During that admission, the patient was seen by thoracic surgery there and was thought to have persistent lung trapping and effusion.? 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 He was given tPA with significant symptomatic improvement, almost back to baseline.? He therefore did not undergo the planned VATS procedure.? He was ultimately discharged to rehab with PleurX-type catheter. I don?t have any f/u from that, but our records show that the patient has had a number of subsequent outpatient visits within the [facility] system for general medical f/u with cardiology (chronic Afib and HTN) and with his PMD (diabetes and health maint).? There is nothing in the notes from those visit that pertains to the aforementioned pneumonia or drainage catheter, including in his last outpatient primary care health maint visit of 09/10/22. I spoke to the patient?s HCP (Demar, cell [phone]) at length about current situation and what happened at [facility] last year.? Demar is the son of the patient?s long time girlfriend, who just recently.? Edmar couldn?t tell me much.? He did tell me Mr. Holder was in the ICU here at [facility] about 10 years ago, on dialysis in deep sepsis, and was rescued from the .? That sepsis episode was somehow related to a bad hip he had.? Subsequent to that, he had his hip replaced.? He is not sure which hip. ECHO report from 03/10/22 showed:? Normal LV wall thickness and function, EF 65- 70%.? Moderate septal asymmetric hypertrophy.? Mildly increased RV size with normal function.? Mildly dilated LA and RA.? No significant valvular Doppler abnormalities.? IVC size was normal with greater than 50% inspiratory collapse. HISTORY OF PRESENT ILLNESS:? On 10/06/22, the patient presented to the walk in clinic with SOB, tachypnea, and cough, and was referred directly to the ED.? See subsequent inpatient notes.? Bottom line is that Chest CT showed a consolidated left lung base with volume loss.? There was a lot a large loculated left-sided pleural effusion with thickening of the wall.? There were multiple foci of air within the collection, possibly secondary to either infection or a bronchopleural fistula. The patient was admitted to Medicine that night by Dr. Vaughn and started on Abx.? 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 He was seen by NIRMAL Quintanilla and intubated.? He was transferred to the ICU.? Antibiotics were changed to vanco and Zosyn. ?Thru that day, he had a mild lactic acidosis, and required increasing doses of Levophed, up to 0.3ug, and a bicarb drip. ECHO that day showed LV size and function normal with ejection fraction about 60%.? No RWMAs.? Right ventricle was enlarged with RV:LV cavity ratio about 1.5.? Trace AI by color-flow.? Trace MR by color flow.? Trace TR by color-flow.? CWD measured 2.5 m/sec (gradient 25 mm).? IVC 2.2 cm with about 25% insp collapse.? RVSP 40mm.? The patient had no BP response to a fluid bolus.? Creat increased from 0.6 on admission to 1.2.? We put an A-line in.? Sputum Gram stain yesterday showed 2+ polys with a polymicrobial justus.? The case was discussed with IR and w Dr. Degroot at length. Because the patient might have been on Eliquis, thoracentesis was delayed until the next day (yesterday).? The patient was taken to CT scan for planned thoracentesis and chest tube placement.? On turning the patient into the right lateral decubitus position, about a cupful of very foul-smelling acevedo-cruz pus poured out of the patient's endotracheal tube.? The patient became unstable, with blood pressure dropping into the 60s.? The procedure was abandoned and the patient brought back to the ICU.? Vasopressin was added.? He stabilized at a Levophed dose of 0.35 mcg and vasopressin 0.04 units. That afternoon, Dr. Ambrocio placed a 10Fr pigtail into the empyema at the bedside via US.? About half a cup of the acevedo/cruz pus was obtained and sent to Micro lab.? The catheter was placed to suction.? Post-procedure chest x-ray shows much better expansion of the left lung with significant drainage of the pleural fluid.? Right lung infiltrates appeared increased. Overnight he?s significantly stabilized.? Vasopressin is off, Levophed is down to 0.15ug, the bicarb drip came off, and ventilatory and oxygenation parameters are improved.? Bronchoscopy today by Dr. Contreras cleaned him out and showed no revealing findings.? Sedated now on P20 and F100.? Heart rate 105, chronic atrial fibrillation.? Blood pressure 115/63.? On PC 14, 28/8, 50%, RR is 14, Vt 520cc, Ve 7.3L, PIP 37cm, ETCO2 30mm, Sat 95%.? CVBG this morning 7.46/57/+15.? Afebrile.? No JVD at 30?.? Right lung shows coarse BS.? Coarse crackles and tubular sounds on the left.? At least 2+ central edema.? The deep purpura of his feet has resolved and most of his feet are now more pink, and warm (left > right).? He has deep purpura, almost black discoloration of the tips of both big toes. LABORATORY DATA:? Below.? Notably, white count is down to 20.? BUN/creatinine steady, phosphorus down to 2.6, potassium is 2.7, and bicarb is 30. MICRO:? All the resp specimens, including a specimen of the pus obtained via the ETT after rupture of the BPF in IR this morning, all have the same Gram stain, w ith polys, GPC and GNRs.? The pleural fluid has the same gram stain, but is growing only Proteus. Venous Duplex US both LEs last night:? No DVT. Arterial ?US both LEs last night:? Normal triphasic flow throughout. No areas of velocity to suggest any significant stenoses. ?No evidence of any hemodynamically significant lower extremity arterial disease. IMPRESSION: 1. Underlying chronic Afib. 2. Underlying RHF. 3. Recurrent left pneumonia with empyema, very possibly/likely trapped lung.? 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 My suspicion is that rupture of the BPF is what lead to his sudden resp distress on 10/07.? He?ll need a decortication.? Discussed with Dr. Degroot?s PA today, we?ll plan that for next week. 4. Acute resp failure.? 2? above. 5. Septic shock.? Improving. 6. ID:? On vanco and Zosyn.? Adequate for now.? I?m suspicious why no GPC growing. 7. PEPE.? 2? sepsis.? Mild so far, and phos is still low.? Looks like it will turn around. 8. ? Significant peripheral vascular disease.? Yesterday it looked like he would lose his toes.? Today, only the two big toes are in jeopardy.? Refer to Dr. Saldana after he gets better. 9. Hypokalemia.? Repleted. 10. Hypophosphatemia.? Repleted. 11. Nutrition.? At goal rate Promote. Critical Care Time (minutes): 60 Physical Exam Vital Signs: Vital Signs: Last Vital Signs Temp 99.1 F 10/09/22 17:00 Pulse 115 H 10/09/22 17:00 Resp 20 10/09/22 17:00 BP 123/75 10/09/22 17:00 Pulse Ox 91 L 10/09/22 17:00 O2 Del Method 10/09/22 17:00 FiO2 50 10/09/22 17:00 BMI result Body Mass Index 31.7 Objective Data Labs CBC & Chem 7: 10/09/22 05:10 10/09/22 05:10 Labs: Laboratory Results - last 24 hr 10/08/22 10/09/22 10/09/22 20:38 05:10 05:10 WBC 20.3 H RBC 2.90 L Hgb 9.6 L Hct 29.2 L MCV 100.7 H MCH 33.1 H MCHC 32.9 RDW 17.6 H Plt Count 169 D MPV 9.4 Absolute Nucleated RBC 0.000 Nucleated RBC % (auto) 0.0 VBG pH VBG pCO2 VBG pO2 VBG HCO3 VBG O2 Saturation VBG Base Excess Sodium 144 Potassium 2.7 L D Chloride 102 Carbon Dioxide 30 H Anion Gap 15 BUN 19 H Creatinine 1.45 H Estim Creat Clear Calc 53.0 Estimated GFR 48 POC Glucose 167 H Random Glucose 168 H Lactic Acid Lactic Acid F/U @ 2Hr Calcium 8.3 L Phosphorus 2.6 L Magnesium 2.0 Albumin 3.2 L Random Vancomycin 10/09/22 10/09/22 10/09/22 05:10 05:10 05:15 WBC RBC Hgb Hct MCV MCH MCHC RDW Plt Count MPV Absolute Nucleated RBC Nucleated RBC % (auto) VBG pH 7.45 H VBG pCO2 56 VBG pO2 45 VBG HCO3 39 H VBG O2 Saturation 70.0 VBG Base Excess 13.5 Sodium Potassium Chloride Carbon Dioxide Anion Gap BUN Creatinine Estim Creat Clear Calc Estimated GFR POC Glucose Random Glucose Lactic Acid 2.8 H* Lactic Acid F/U @ 2Hr Calcium Phosphorus Magnesium Albumin Random Vancomycin 14.6 L 10/09/22 10/09/22 10/09/22 07:45 08:02 10:20 WBC RBC Hgb Hct MCV MCH MCHC RDW Plt Count MPV Absolute Nucleated RBC Nucleated RBC % (auto) VBG pH 7.46 H VBG pCO2 57 VBG pO2 44 VBG HCO3 41 H VBG O2 Saturation 69.0 VBG Base Excess 15.7 Sodium Potassium Chloride Carbon Dioxide Anion Gap BUN Creatinine Estim Creat Clear Calc Estimated GFR POC Glucose 192 H Random Glucose Lactic Acid Lactic Acid F/U @ 2Hr 2.8 H* Calcium Phosphorus Magnesium Albumin Random Vancomycin 10/09/22 10/09/22 11:22 16:07 WBC RBC Hgb Hct MCV MCH MCHC RDW Plt Count MPV Absolute Nucleated RBC Nucleated RBC % (auto) VBG pH VBG pCO2 VBG pO2 VBG HCO3 VBG O2 Saturation VBG Base Excess Sodium Potassium Chloride Carbon Dioxide Anion Gap BUN Creatinine Estim Creat Clear Calc Estimated GFR POC Glucose 183 H 169 H Random Glucose Lactic Acid Lactic Acid F/U @ 2Hr Calcium Phosphorus Magnesium Albumin Random Vancomycin Microbiology Microbiology Results: Microbiology 10/09/22 09:00 Bronchial Washings Gram Stain - Final 10/08/22 16:18 Pleura Gram Stain - Final 10/08/22 16:18 Pleura Anaerobic Culture - Preliminary Culture in progress. 10/08/22 16:18 Pleura Body Fluid Culture - Preliminary Proteus species 10/08/22 14:12 Sputum - Suctioned Gram Stain - Final 10/08/22 14:12 Sputum - Suctioned Sputum Culture - Preliminary Proteus species 10/08/22 08:22 Sputum - Suctioned Gram Stain - Final 10/08/22 08:22 Sputum - Suctioned Sputum Culture - Preliminary Proteus species 10/07/22 01:14 Sputum - Induced Gram Stain - Final 10/07/22 01:14 Sputum - Induced Sputum Culture - Preliminary Proteus species 10/06/22 18:39 Blood - Venous Blood Culture - Preliminary No growth after 48 hours. 10/06/22 18:41 Blood - Venous Blood Culture - Preliminary No growth after 48 hours. Quality Stroke Does the patient have a stroke diagnosis?: No VTE Prior VTE?: No VTE Risk Level:: Medical - moderate - high VTE Device Contraindication: Treatment Not Indicated VTE Drug Contraindication: N/A - Med Ordered Critical Care Time Critical Care Time (minutes): 60
--- NOTE | 2022-10-09 18:25 | PC.NURSE ---
Pt underwent bronchoscopy at bedside this am, tolerated well, specimens sent to lab as requested by MD. Pt continues to be sedated and intubated, on Fentanyl and Propofol, titrated IV gtt per protocol; also titrated Levophed per protocol,tolearting with no acute ditress. Pt on vent settings on
--- NOTE | 2022-10-09 18:49 | PC.NURSE ---
Pt underwent bronchoscopy this am at bedside, tolerated the procedure well, specimens collected and sent to Lab. Pt continues to be sedated on Propofol and Fentanyl, totrated Levophed per protocol and has tolerated thus far. Pt maintained on PC and satting appropriately in the low to mid 90s. Pt received IV Kphos per order for repletion. Pt has hypoactive bowel sounds and semifirm abdomen, made aware and Lactulose, Reglan given as ordered and is now passing gas. Pt maintained on TF at 20mls/hr and is tolerating well with minimal residuals. Pt bathed and skin care provided as needed to the maceration in the groin, barrier cream applied to blanchable redness in coccyx. CT to LWS is draining scant amounts of gee blood. Pt currently resting with no acute distress. Repositioned every 2 hrs and as needed, heel boots and wedges utilized. Safety maintained throughout.
[2022-10-09 20:17] LABS: Alanine Aminotransferase 6 U/L (0-40); Albumin Level 2.6 g/dL (3.5-5.0); Alkaline Phosphatase 107 U/L (39-117); Anion Gap 14 (12-20); Aspartate Amino Transferase 17 U/L (5-37); Bilirubin Total 1.4 mg/dL (0.0-1.0); Blood Urea Nitrogen 19 mg/dL (9-16); Calcium 8.2 mg/dL (8.4-10.2); Carbon Dioxide 28 mmol/L (22-29); Chloride 107 mmol/L (96-108); Estimated Glomerular Filt Rate 48; Glucose Random 155 mg/dL (60-115); Potassium 3.7 mmol/L (3.3-5.1); Sodium 145 mmol/L (135-145); Total Protein 4.7 g/dL (6.5-8.0)
[2022-10-09 20:35] LABS: Glucose, Whole Blood 144 mg/dL (60-115)
--- NOTE | 2022-10-09 22:25 | OP_ITS ---
SURGEON: Anthony Contreras MD INDICATIONS: Consent was obtained from the patient's proxy. The questions were answered. The patient's proxy gave informed consent to undergo the procedure. PREOPERATIVE DIAGNOSIS: POSTOPERATIVE DIAGNOSIS: PROCEDURE PERFORMED: Bronchoscopy with biopsy and washings. ESTIMATED BLOOD LOSS: COMPLICATIONS: ANESTHESIA: Patient was already sedated under the ICU protocol. ASSISTANTS: SPECIMENS: ASA CLASSIFICATION: 4. PREOPERATIVE DIAGNOSES: Pneumonia and empyema. POSTOPERATIVE DIAGNOSES: Pneumonia and left lower lobe endobronchial density. DESCRIPTION OF PROCEDURE: After the patient had adequately sedated, the flexible digital bronchoscope was inserted over the ET tube to the level of the main radha. Main radha appeared to be crisping and sharp. The bronchoscope was navigated to the entire tracheobronchial tree that was examined to the subsegmental level. The patient did have purulent secretions primarily in the distal left mainstem bronchus. There also appears to be some erythema to the mucosa and some thickening of the mucosa. Although initially, no other abnormalities noted. After clearing out the pus, it was a little more obvious that there was an endobronchial lesion in the left lower lobe segment. Difficult to visualize with the disposable bronchoscope. Still the lesion was noted. Bronchial washings were collected and therapeutic cleaning was provided of the both lungs, primarily the left where the purulent secretions were located. Once the purulent secretions were cleared using forceps biopsies, 2 specimens were collected from that endobronchial lesion in the left lower lobe. No evidence of any bleeding. Iced saline was used with good hemostasis. Bronchial washings were initially collected for microbiology and bronchial washings on a trap was then collected for cytology. The specimens were sent to the appropriate location. The bronchoscope was then removed. The total endoscopic time approximately 10 minutes. The patient tolerated the procedure well. Vital signs were stable throughout the procedure. No apparent complications. INTERPRETATION: 1. Successful therapeutic cleaning of the airways primarily the left side. 2. Bronchial washings collected from the left lower lobe for microbiology. 3. Forceps biopsies of the left lower lobe endobronchial lesion and also bronchial washings for cytology. MD ALLI Dewey/KATHE / [id number]
[2022-10-10] VITALS (47 sets, daily range): BP systolic 81–123; BP diastolic 50–74; PULSE 100–140; RESP 13–40; TEMP 33.7–38.4; O2SAT 50–96; BMI 31.8
[2022-10-10] MEDS: 0.9 % Sodium Chloride Flush 3 ML SYRINGE IVFLUSH ×4 (01:15→23:21)
[2022-10-10] MEDS: Metoclopramide HCl 10 MG/2 ML VIAL IVPUSH ×2 (01:15→06:00)
[2022-10-10] MEDS: Piperacillin Sodium/Tazobactam 4.5 GM in 0.9 % Sodium Chloride 100 ML IV ×3 (01:15→13:25)
[2022-10-10] MEDS: Heparin Sodium,Porcine 5,000 UNIT/ML VIAL 5000 UNIT SUBCUT ×2 (04:21→13:25)
[2022-10-10] MEDS: propofoL 1,000 MG/100 ML VIAL 11.03 MG IVCONT ×3 (04:23→19:07)
[2022-10-10 05:31] LABS: ABG Base Excess 12.1 mmol/L; ABG HCO3 36 mmol/L (22-26); ABG pCO2 45 mmHg (32-45); ABG pO2 73 mmHg (83-108)
[2022-10-10 05:37] LABS: Hematocrit 30.4 % (42.0-52.0); Hemoglobin 9.9 g/dl (14.0-18.0); Mean Corpuscular HGB Conc 32.6 g/dl (31.0-36.0); Mean Corpuscular Volume 101.3 fL (80.0-98.0); Mean Platelet Volume 10.2 fL (9.4-12.4); Platelet Count 136 X10*3/uL (160-400); Red Cell Distribution Width 17.7 % (11.0-16.0); White Blood Count 23.5 X10*3/uL (4.8-10.8)
[2022-10-10 05:43] LABS: INTERNATIONAL NORM RATIO 1.4 (0.9-1.1); Prothrombin Time 16.2 SEC (10.0-13.1)
[2022-10-10 05:46] LABS: ABG Refer to POC result
[2022-10-10 05:56] LABS: Albumin Level 2.4 g/dL (3.5-5.0); Anion Gap 17 (12-20); Blood Urea Nitrogen 20 mg/dL (9-16); Calcium 8.2 mg/dL (8.4-10.2); Carbon Dioxide 26 mmol/L (22-29); Chloride 107 mmol/L (96-108); Creatinine Clr Calc Pharmacy 50.6; Estimated Glomerular Filt Rate 45; Glucose Random 160 mg/dL (60-115); Phosphorus 2.9 mg/dL (2.7-4.5); Potassium 3.5 mmol/L (3.3-5.1); Sodium 146 mmol/L (135-145)
[2022-10-10 05:58] LABS: Lactic Acid 2.2 mmol/L (0.5-2.0)
[2022-10-10 05:59] LABS: B Type Natriuretic Peptide 325 pg/mL (<100)
[2022-10-10] MEDS: Pantoprazole Sodium 40 MG/10 ML VIAL IVPUSH (06:00)
[2022-10-10 06:05] LABS: Cancel Lactic Acid Canceled
[2022-10-10 07:20] LABS: Glucose, Whole Blood 193 mg/dL (60-115)
[2022-10-10] MEDS: Potassium Chloride Packet 20 MEQ PACKET PO (07:37)
[2022-10-10] MEDS: Albumin Human 25 % 100 ML IV ×2 (07:37→09:15)
[2022-10-10] MEDS: Insulin Lispro 100 UNIT/ML 3 ML VIAL SUBCUT ×3 (07:37→17:59)
[2022-10-10] MEDS: Chlorhexidine Gluc Oral Rinse 15 ML MOUTHWASH BUCCAL ×3 (07:38→19:31)
[2022-10-10] MEDS: Lactulose 20 GM/30 ML SOLUTION G-TUBE (07:38)
--- NOTE | 2022-10-10 07:43 | HE.PHANOTE ---
Vancomycin Scr continues to rise slightly. Current regimen vanco 1000 mg Q24H still expect to be at therapetuic levels with AUC 546 and a trough of 15.9. next level to be drawn tomorrow 10/11 @ 0800. Velia Ndiaye, BaironD
[2022-10-10] MEDS: Dextrose 5 % 1,000 ML 75 ML IVCONT ×2 (07:51→19:31)
[2022-10-10 09:04] LABS: Cancel Lactic Acid Canceled
[2022-10-10] MEDS: fentaNYL citrate/PF 100 MCG/2 ML VIAL 50 MCG IVPUSH (09:28)
[2022-10-10] MEDS: fentaNYL citrate/NS 1,000 MCG/100 ML PLAST..BAG 10 MCG IVCONT (09:29)
[2022-10-10] MEDS: Esmolol HCl/NaCl Iso 2,500 MG/250 ML IV.SOLN 5.87 MG IVCONT (09:30)
[2022-10-10] MEDS: vancomycin HCL 1,000 MG in 0.9 % Sodium Chloride 250 ML 270 MG IV (10:37)
[2022-10-10 11:20] LABS: ABG Base Excess -4.1 mmol/L; ABG HCO3 19 mmol/L (22-26); ABG pCO2 28 mmHg (32-45); ABG pH 7.44 (7.35-7.45); ABG pO2 65 mmHg (83-108)
--- NOTE | 2022-10-10 11:22 | P.PNCC_ITS ---
Subjective Subjective Date of Service: 10/10/22 Interval History: Mr. Holder was transferred to ICU on Oct 07 with acute respiratory failure 2? 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 According to our [facility] records, the patient presented to the [place] ED in April of 2021 with a similar picture.? At that time, the patient had a large simple left-sided pleural effusion.? Because we had no thoracic coverage at that time, the patient was transferred to [facility].? He was in the hospital there for 2 weeks.? He had his left pleural effusion drained.? The drainage was bloody, negative for malignancy and negative for infection.? During that admission, the patient was seen by thoracic surgery there and was thought to have persistent lung trapping and effusion.? 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 He was given tPA with significant symptomatic improvement, almost back to baseline.? He therefore did not undergo the planned VATS procedure.? He was ultimately discharged to rehab with PleurX-type catheter. I don?t have any f/u from that, but our records show that the patient has had a number of subsequent outpatient visits within the [place] system for general medical f/u with cardiology (chronic Afib and HTN) and with his PMD (diabetes and health maint).? There is nothing in the notes from those visit that pertains to the aforementioned pneumonia or drainage catheter, including in his last outpatient primary care health maint visit of 09/10/22. I spoke to the patient?s HCP (Demar, cell [phone]) at length about current situation and what happened at [facility] last year.? Demar is the son of the patient?s long time girlfriend, who just recently.? Demar couldn?t tell me much.? He did tell me Mr. Holder was in the ICU here at [place] about 10 years ago, on dialysis in deep sepsis, and was rescued from the .? That sepsis episode was somehow related to a bad hip he had.? Subsequent to that, he had his hip replaced.? He is not sure which hip. ECHO report from 03/10/22 showed:? Normal LV wall thickness and function, EF 65- 70%.? Moderate septal asymmetric hypertrophy.? Mildly increased RV size with normal function.? Mildly dilated LA and RA.? No significant valvular Doppler abnormalities.? IVC size was normal with greater than 50% inspiratory collapse. HISTORY OF PRESENT ILLNESS:? On 10/06/22, the patient presented to the walk in clinic with SOB, tachypnea, and cough, and was referred directly to the ED.? The patient was admitted to Medicine that night by Dr. Vaughn and started on Abx.? See subsequent inpatient notes.? Bottom line is that Chest CT showed a consolidated left lung base with volume loss.? There was a lot a large loculated left-sided pleural effusion with thickening of the wall.? There were multiple foci of air within the collection, possibly secondary to either infection or a bronchopleural fistula. 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 He was seen by NIRMAL Quintanilla and intubated.? He was transferred to the ICU.? Antibiotics were changed to vanco and Zosyn.? Thru that day, he had a mild lactic acidosis, and required increasing doses of Levophed, up to 0.3ug, and a bicarb drip. ECHO that day showed LV size and function normal with ejection fraction about 60%.? No RWMAs.? Right ventricle was enlarged with RV:LV cavity ratio about 1.5.? Trace AI by color-flow.? Trace MR by color flow.? Trace TR by color-flow.? CWD measured 2.5 m/sec (gradient 25 mm).? IVC 2.2 cm with about 25% insp collapse.? RVSP 40mm.? The patient had no BP response to a fluid bolus.? Creat increased from 0.6 on admission to 1.2.? We put an A-line in.? Sputum Gram stain showed 2+ polys with a polymicrobial justus.? The case was discussed with IR and w Dr. Degroot at length. Because the patient might have been on Eliquis, thoracentesis was delayed until the next day (10/08).? The patient was taken to CT scan for planned thoracentesis and chest tube placement.? On turning the patient into the right lateral decubitus position, a cupful of very foul-smelling, acevedo-cruz pus poured out of the patient's endotracheal tube.? The patient became hemod unstable.? The procedure was abandoned and the patient brought back to the ICU.? Vasopressin was added.? He stabilized at a Levophed dose of 0.35 mcg and vasopressin 0.04 units. That afternoon, Dr. Ambrocio placed a 10Fr pigtail into the empyema at the bedside via US.? About half a cup of the acevedo/cruz pus was obtained and sent to Micro lab.? The catheter was placed to wall suction.? Post-procedure chest x-ray shows much better expansion of the left lung with significant drainage of the pleural fluid.? Right lung infiltrates appeared increased. Overnight stabilized significantly stabilized.? By the morning (yesterday), vasopressin was off, Levophed was down to 0.15ug the bicarb drip came off, and ventilatory and oxygenation parameters were much improved.? Bronchoscopy by Dr. Contreras cleaned him out and an endobronchial lesion was noted in the left lower lobe segment.? Bronchial washings were collected and therapeutic cleaning was provided of both lungs, primarily the left where the purulent secretions were located.? Two specimens were collected from the endobronchial lesion, along w bronchial washings for microbiology and cytology. Overnight did well.? This morning, with nursing care and turning the patient on to his right side, the patient?s RR went up to the 40s, tidal vol dropped to 150s.? Auscultation revealed substantial coarse rhonchi on the right side.? We were unable to fix him with ventilatory adjustments, a bolus of Dilaudid, and then a large bolus of fentanyl.? We therefore undertook bronchoscopy (separate procedure).? The right side was largely unremarkable.? Scant mucus was suctioned out.? By the end of the procedure, the patient was somewhat better, with RR down to 18, Vt up to mid 400?s. Sedated now on P20 and F50.? Also on Levophed 0.16ug, and esmolol 10ug for HR control.? HR 114, chronic atrial fibrillation.? BP 106/68.? On PC 12, 26/8, 60%, RR is 19, Vt 400cc, Ve 7.6L, PIP 35cm, ETCO2 29mm, Sat 90%.? ABG this morning 7.44/28/65/-4.? Tmax 100.8.? No JVD at 30?.? Right lung very rhonchorous, better after the bronch.? Light dry rhonchi and tubular sounds on the left.? 2+ central edema.? The deep purpura of his feet has resolved, his feet are now warm and pink, he has black discoloration of only the tip of his right big toe. LABORATORY DATA:? Below.? Notably, white count up slightly.? BUN/creatinine up slightly, phosphorus 2.9, potassium is 3.5.? Lactic acid 2.2. MICRO:? All the resp specimens, including a specimen of the pus obtained via the ETT after rupture of the BPF in IR, plus the pleural fluid specimen, all have the same Gram stain, with polys, GPC and GNRs.? And they?re all growing only yates-sensitive Proteus. Venous Duplex US both LEs:? No DVT. Arterial? US both LEs:? Normal triphasic flow throughout. No areas of velocity to suggest any significant stenoses. ?No evidence of any hemodynamically significant lower extremity arterial disease. IMPRESSION: 1. Underlying chronic Afib. 2. Underlying RHF. 3. Recurrent left pneumonia with empyema, very possibly/likely w trapped lung.? 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 My suspicion is that rupture of the BPF is what lead to his sudden resp distress on 10/07.? He?ll need a decortication.? Discussed with Dr. Degroot?s PA today, we?ll plan that for next week. 4. Acute resp failure.? 2? above.? Not sure if he?ll be extubatable before his decortication.? Certainly not today. 5. Septic shock.? Improving. 6. ID:? Switch abx to ceftriaxone. 7. PEPE.? 2? sepsis.? Mild so far, and phos is still low.? Looks like it will turn around. 8. ? Significant peripheral vascular disease.? Might lose his right big toe.? Refer to Dr. Saldana after he gets better. 9. High residuals:? Resolved w Reglan and lactulose. 10. Hypokalemia.? Repleted. 11. Nutrition.? At goal rate Promote. Critical care time (includ mult extended bedside visits to address ventilatory problems; excluding procedures):? 75+ min. Critical Care Time (minutes): 75 Physical Exam Vital Signs: Vital Signs: Last Vital Signs Temp 100.4 F 10/10/22 10:00 Pulse 116 H 10/10/22 10:00 Resp 19 10/10/22 10:34 BP 89/56 L 10/10/22 10:41 Pulse Ox 89 L 10/10/22 10:00 O2 Del Method 10/10/22 10:00 FiO2 45 10/10/22 10:00 BMI result Body Mass Index 31.8 Objective Data Labs CBC & Chem 7: 10/10/22 05:25 10/10/22 05:25 Labs: Laboratory Results - last 24 hr 10/09/22 10/09/22 10/09/22 11:22 16:07 19:55 WBC RBC Hgb Hct MCV MCH MCHC RDW Plt Count MPV Absolute Nucleated RBC Nucleated RBC % (auto) PT INR O2 Saturation ABG pH at Pt Temp ABG pCO2 at Pt Temp ABG pO2 at Pt Temp ABG HCO3 ABG Base Excess (Actual) Sodium 145 Potassium 3.7 D Chloride 107 Carbon Dioxide 28 Anion Gap 14 BUN 19 H Creatinine 1.45 H Estim Creat Clear Calc 53.0 Estimated GFR 48 POC Glucose 183 H 169 H Random Glucose 155 H Lactic Acid Calcium 8.2 L Phosphorus Magnesium Total Bilirubin 1.4 H AST 17 ALT 6 Alkaline Phosphatase 107 B-Natriuretic Peptide Total Protein 4.7 L Albumin 2.6 L 10/09/22 10/10/22 10/10/22 20:32 05:24 05:25 WBC RBC Hgb Hct MCV MCH MCHC RDW Plt Count MPV Absolute Nucleated RBC Nucleated RBC % (auto) PT INR O2 Saturation 94.0 ABG pH at Pt Temp 7.50 H ABG pCO2 at Pt Temp 45 ABG pO2 at Pt Temp 73 L ABG HCO3 36 H ABG Base Excess (Actual) 12.1 Sodium Potassium Chloride Carbon Dioxide Anion Gap BUN Creatinine Cancelled Estim Creat Clear Calc Cancelled Estimated GFR Cancelled POC Glucose 144 H Random Glucose Lactic Acid Calcium Phosphorus Magnesium Total Bilirubin AST ALT Alkaline Phosphatase B-Natriuretic Peptide Total Protein Albumin 10/10/22 10/10/22 10/10/22 05:25 05:25 05:25 WBC 23.5 H RBC 3.00 L Hgb 9.9 L Hct 30.4 L MCV 101.3 H MCH 33.0 MCHC 32.6 RDW 17.7 H Plt Count 136 L MPV 10.2 Absolute Nucleated RBC 0.000 Nucleated RBC % (auto) 0.0 PT 16.2 H INR 1.4 H O2 Saturation ABG pH at Pt Temp ABG pCO2 at Pt Temp ABG pO2 at Pt Temp ABG HCO3 ABG Base Excess (Actual) Sodium 146 H Potassium 3.5 Chloride 107 Carbon Dioxide 26 Anion Gap 17 BUN 20 H Creatinine 1.52 H Estim Creat Clear Calc 50.6 Estimated GFR 45 POC Glucose Random Glucose 160 H Lactic Acid Calcium 8.2 L Phosphorus 2.9 Magnesium 2.0 Total Bilirubin AST ALT Alkaline Phosphatase B-Natriuretic Peptide Total Protein Albumin 2.4 L 10/10/22 10/10/22 10/10/22 05:25 05:25 07:16 WBC RBC Hgb Hct MCV MCH MCHC RDW Plt Count MPV Absolute Nucleated RBC Nucleated RBC % (auto) PT INR O2 Saturation ABG pH at Pt Temp ABG pCO2 at Pt Temp ABG pO2 at Pt Temp ABG HCO3 ABG Base Excess (Actual) Sodium Potassium Chloride Carbon Dioxide Anion Gap BUN Creatinine Estim Creat Clear Calc Estimated GFR POC Glucose 193 H Random Glucose Lactic Acid 2.2 H* Calcium Phosphorus Magnesium Total Bilirubin AST ALT Alkaline Phosphatase B-Natriuretic Peptide 325 H Total Protein Albumin 10/10/22 11:12 WBC RBC Hgb Hct MCV MCH MCHC RDW Plt Count MPV Absolute Nucleated RBC Nucleated RBC % (auto) PT INR O2 Saturation 93.0 ABG pH at Pt Temp 7.44 ABG pCO2 at Pt Temp 28 L ABG pO2 at Pt Temp 65 L ABG HCO3 19 L ABG Base Excess (Actual) -4.1 Sodium Potassium Chloride Carbon Dioxide Anion Gap BUN Creatinine Estim Creat Clear Calc Estimated GFR POC Glucose Random Glucose Lactic Acid Calcium Phosphorus Magnesium Total Bilirubin AST ALT Alkaline Phosphatase B-Natriuretic Peptide Total Protein Albumin Microbiology Microbiology Results: Microbiology 10/07/22 01:14 Sputum - Induced Gram Stain - Final 10/07/22 01:14 Sputum - Induced Sputum Culture - Final Proteus mirabilis 10/08/22 16:18 Pleura Gram Stain - Final 10/08/22 16:18 Pleura Anaerobic Culture - Preliminary Culture in progress. 10/08/22 16:18 Pleura Body Fluid Culture - Preliminary Proteus mirabilis 10/08/22 14:12 Sputum - Suctioned Gram Stain - Final 10/08/22 14:12 Sputum - Suctioned Sputum Culture - Preliminary Proteus mirabilis 10/08/22 08:22 Sputum - Suctioned Gram Stain - Final 10/08/22 08:22 Sputum - Suctioned Sputum Culture - Preliminary Proteus mirabilis 10/09/22 09:00 Bronchial Washings Gram Stain - Final 10/06/22 18:39 Blood - Venous Blood Culture - Preliminary No growth after 48 hours. 10/06/22 18:41 Blood - Venous Blood Culture - Preliminary No growth after 48 hours. Quality Stroke Does the patient have a stroke diagnosis?: No VTE Prior VTE?: No VTE Risk Level:: Medical - moderate - high VTE Device Contraindication: Treatment Not Indicated VTE Drug Contraindication: N/A - Med Ordered Critical Care Time Critical Care Time (minutes): 90
[2022-10-10] MEDS: HYDROmorphone HCl 1 MG/ML SYRINGE IVPUSH ×2 (11:36→18:40)
[2022-10-10] MEDS: fentaNYL citrate/PF 100 MCG/2 ML VIAL IVPUSH ×3 (11:40→18:09)
[2022-10-10 12:22] LABS: Glucose, Whole Blood 217 mg/dL (60-115)
--- NOTE | 2022-10-10 13:11 | W.PM.CCHP ---
Procedures Date of Service Date of Service: 10/10/22 Arterial Line Size (Gauge): 20 Bronchoscopy Bronchoscopy Comments: PROCEDURE NOTE:? Fiberoptic bronchoscopy INDICATIONS:? Acute respiratory failure 2? pneumonia and empyema with BPF, with acute loss of tidal volume.? Bronchoscopy was undertaken to explore and clean out the right lung. ANESTHESIA:? Propofol and fentanyl sedation. PROCEDURE:? The bronchoscope was introduced without incident.? Inspection was carried out down to the level of the segmental bronchi.? The entire bronchial tree, both sides, was free of pus, with only scant clear/white secretions in the right side.? The right side was lavaged till clear without incident.? The procedure was terminated without incident. The patient tolerated the procedure well without complications. ?TV was much improved post procedure.? The post-procedure CXR shows new infiltrates in the right lung.
[2022-10-10 13:19] LABS: ABG Refer to POC result
--- NOTE | 2022-10-10 15:03 | PC.NURSE ---
Assumed care at 0700. Patient O2 saturation >88% on mechanical ventilation PC 24/8 45% FiO2. Patent in afib sustaining HR 110s-120s. SBPs 80s-90s, MAPS sustaining >65 with Levophed gtt.Patient afebrile. 0930- HR sustaining 130s-140s- MD notified. Esmolol gtt ordered and hung. HR sustaning 110s-120s on esmolol gtt. Patient core temp 100.4- MD aware, no new orders at this time. 1030- Patient given bed bath. RR increasing to 30-40, tidal volumes sustaining 100s-200s. O2 sats <88%. MD and RT notified and called to bedside. 2 mg dilaudid given per MD with no effect. 100 mcgs fentanyl IVP given per MD. Patient ventilated via BVM by RT. RR decreased to 20s, TVs remaining 100s-200s. Bedside bronchoscopy performed by MD. CXR obtained- see report. ETT pulled back by MD and RT- now 8.0 24 cm at the lip. Patient TVs sustaining 300s-400s, RR sustaining 20s, O2 saturation maintaining >88% on PC 26/8 70% FiO2.
[2022-10-10] MEDS: cefTRIAXone sodium 1 GM in 0.9 % Sodium Chloride 50 ML IV (15:57)
[2022-10-10] MEDS: Phytonadione (Vit K1) 10 MG in 0.9 % Sodium Chloride 50 ML 51 MG IV ×2 (16:11→21:54)
[2022-10-10] MEDS: Heparin Sodium,Porcine 5,000 UNIT/ML VIAL 3000 UNIT IVPUSH (16:18)
[2022-10-10] MEDS: Heparin Sodium,Porcine/1/2NS 25,000 UNIT/250 ML IV.SOLN 13.69 UNIT IVCONT (16:18)
[2022-10-10 16:34] LABS: Alanine Aminotransferase < 6 U/L (0-40); Albumin Level 2.9 g/dL (3.5-5.0); Alkaline Phosphatase 160 U/L (39-117); Anion Gap 15 (12-20); Aspartate Amino Transferase 12 U/L (5-37); Bilirubin Total 1.3 mg/dL (0.0-1.0); Blood Urea Nitrogen 20 mg/dL (9-16); Calcium 8.4 mg/dL (8.4-10.2); Carbon Dioxide 27 mmol/L (22-29); Chloride 108 mmol/L (96-108); Creatinine Clr Calc Pharmacy 52.7; Estimated Glomerular Filt Rate 47; Glucose Random 158 mg/dL (60-115); Potassium 3.2 mmol/L (3.3-5.1); Sodium 147 mmol/L (135-145); Total Protein 4.8 g/dL (6.5-8.0)
--- NOTE | 2022-10-10 17:56 | PM.PNTS ---
Subjective Subjective Date of Service: 10/10/22 Interval history: 71 y/o gentleman who Thoracic Surgery was consulted to see for loculated left pleural effusion. Overall, weaning of pressors, Lactate 2.2 (lowest since admission), labile increase/decrease of FiO2. pt's cultures grew Proteus and is on Vanco and Zosyn. Leukocytosis marginally improved. Underwent right bronch today for hypoxia with improvement. pt remains intubated and sedated. Physical Exam Vital Signs: Vital Signs: Last Vital Signs Temp 100.4 F 10/10/22 17:00 Pulse 112 H 10/10/22 17:00 Resp 22 H 10/10/22 17:47 BP 98/60 10/10/22 17:00 Pulse Ox 88 L 10/10/22 17:00 O2 Del Method 10/10/22 17:00 FiO2 70 10/10/22 17:00 BMI result Body Mass Index 31.8 Const: Other: pt is intubated and sedated, and edematous Neck: Other: no JVD Chest: Chest palpation & inspection: normal inspection of the chest Resp: Other: improved aeration of left during ausculatation however bilateral rhonchi present. Left pigtail in thoracic space, open with no output but on LCS. Cardio: Other: irregularly regular GI: Other: soft with + bowel sounds : Other: Luna in place Skin: Other: no rashes Neuro: Other: sedated Extrem: Other: +3-4 peripheral edema bilaterally. Overall toes appear pinker in color and palpable 1+ DP pulses bilaterally. Procedures Date of Service Date of Service: 10/10/22 Arterial Line Size (Gauge): 20 Progress Note: A&P Assessment and plan (1) Pneumonia: Status: Acute (2) Recurrent left pleural effusion: Status: Acute (3) Respiratory failure: Status: Acute Plan Proteus Pneumonia 1. Will need Left VATS decortication, tenative plan for next week. 2. Will need CT of the chest on Wednesday/Wednesday prior to scheduling surgery. 3. ? component of ARDS versus pneumonia underlying due to increased pulmonary airspace opacities. Have been able to oxygenate patient but would continue to monitor in case vent settings need to be adjusted or even prone positioning. pt remains intubated/sedated for respiratory failure. 4. Continue IV Antibiotics 5. Care provided by primary team and Thoracic surgery appreciates this consult. Will continue to follow alongside with you. Time Spent With Patient Time: Total time managing care of this patient today ____ minutes. Quality Stroke Does the patient have a stroke diagnosis?: No VTE Prior VTE?: No VTE Risk Level:: Medical - moderate - high VTE Device Contraindication: Treatment Not Indicated VTE Drug Contraindication: N/A - Med Ordered
[2022-10-10 17:59] LABS: Glucose, Whole Blood 170 mg/dL (60-115)
[2022-10-10 22:04] LABS: ABG Base Excess 13.6 mmol/L; ABG HCO3 45 mmol/L (22-26); ABG pCO2 106 mmHg (32-45); ABG pH 7.23 (7.35-7.45); ABG pO2 80 mmHg (83-108)
[2022-10-10 22:34] LABS: PTT Heparin Drip 64.4 SEC (53-77.9)
[2022-10-10] MEDS: fentaNYL citrate/NS 1,000 MCG/100 ML PLAST..BAG 5 MCG IVCONT (23:20)
[2022-10-10 23:50] LABS: ABG Base Excess 11.8 mmol/L; ABG HCO3 40 mmol/L (22-26); ABG pCO2 78 mmHg (32-45); ABG pH 7.32 (7.35-7.45); ABG pO2 89 mmHg (83-108)
[2022-10-11] VITALS (40 sets, daily range): BP systolic 76–109; BP diastolic 5–75; PULSE 106–141; RESP 19–37; TEMP 34–38.4; O2SAT 86–95; BMI 32.9
[2022-10-11 00:16] LABS: Glucose, Whole Blood 198 mg/dL (60-115)
[2022-10-11] MEDS: Insulin Lispro 100 UNIT/ML 3 ML VIAL SUBCUT ×5 (00:22→23:54)
[2022-10-11 01:14] LABS: Anion Gap 16 (12-20); Blood Urea Nitrogen 22 mg/dL (9-16); Calcium 8.1 mg/dL (8.4-10.2); Carbon Dioxide 25 mmol/L (22-29); Chloride 107 mmol/L (96-108); Creatinine Clr Calc Pharmacy 49.3; Estimated Glomerular Filt Rate 44; Glucose Random 227 mg/dL (60-115); Potassium 3.9 mmol/L (3.3-5.1); Sodium 144 mmol/L (135-145)
[2022-10-11 02:25] LABS: ABG HCO3 38 mmol/L (22-26); ABG pCO2 69 mmHg (32-45); ABG pH 7.34 (7.35-7.45); ABG pO2 85 mmHg (83-108)
[2022-10-11] MEDS: Phytonadione (Vit K1) 10 MG in 0.9 % Sodium Chloride 50 ML 51 MG IV ×2 (04:11→09:46)
[2022-10-11] MEDS: propofoL 1,000 MG/100 ML VIAL 11.03 MG IVCONT ×3 (04:14→21:19)
[2022-10-11] MEDS: fentaNYL citrate/PF 100 MCG/2 ML VIAL IVPUSH ×6 (04:25→16:54)
[2022-10-11 04:28] LABS: PTT Heparin Drip 63.7 SEC (53-77.9)
[2022-10-11 05:32] LABS: ABG Base Excess 0.1 mmol/L; ABG HCO3 27 mmol/L (22-26); ABG pCO2 54 mmHg (32-45); ABG pO2 66 mmHg (83-108)
[2022-10-11 05:35] LABS: Hemoglobin 10.5 g/dl (14.0-18.0); Mean Corpuscular HGB Conc 30.9 g/dl (31.0-36.0); Mean Corpuscular Hemoglobin 32.8 pg (27.0-33.0); Mean Corpuscular Volume 106.3 fL (80.0-98.0); Mean Platelet Volume 10.9 fL (9.4-12.4); Platelet Count 110 X10*3/uL (160-400); Red Cell Distribution Width 18.4 % (11.0-16.0)
[2022-10-11 05:59] LABS: Phosphorus 3.6 mg/dL (2.7-4.5)
[2022-10-11 06:15] LABS: Glucose, Whole Blood 226 mg/dL (60-115)
[2022-10-11 06:28] LABS: ABG Refer to POC result
[2022-10-11 06:29] LABS: ABG Refer to POC result
[2022-10-11 07:18] LABS: Procalcitonin 3.13 ng/mL
[2022-10-11] MEDS: Chlorhexidine Gluc Oral Rinse 15 ML MOUTHWASH BUCCAL ×3 (07:26→20:43)
[2022-10-11] MEDS: 0.9 % Sodium Chloride Flush 3 ML SYRINGE IVFLUSH ×3 (07:26→23:50)
[2022-10-11 07:31] LABS: Alanine Aminotransferase 7 U/L (0-40); Albumin Level 2.8 g/dL (3.5-5.0); Alkaline Phosphatase 190 U/L (39-117); Anion Gap 14 (12-20); Aspartate Amino Transferase 10 U/L (5-37); Blood Urea Nitrogen 25 mg/dL (9-16); Calcium 8.4 mg/dL (8.4-10.2); Carbon Dioxide 26 mmol/L (22-29); Chloride 106 mmol/L (96-108); Creatinine Clr Calc Pharmacy 46.3; Estimated Glomerular Filt Rate 40; Glucose Random 267 mg/dL (60-115); Potassium 3.7 mmol/L (3.3-5.1); Sodium 142 mmol/L (135-145); Total Protein 5.1 g/dL (6.5-8.0)
[2022-10-11] MEDS: Dextrose 5 % 1,000 ML 75 ML IVCONT ×2 (07:34→20:46)
[2022-10-11 07:44] LABS: Bilirubin Total 1.1 mg/dL (0.0-1.0)
[2022-10-11] MEDS: Heparin Sodium,Porcine/1/2NS 25,000 UNIT/250 ML IV.SOLN 13.69 UNIT IVCONT (09:40)
[2022-10-11 11:57] LABS: Glucose, Whole Blood 263 mg/dL (60-115)
[2022-10-11] MEDS: cefTRIAXone sodium 1 GM in 0.9 % Sodium Chloride 50 ML IV (14:54)
[2022-10-11 17:16] LABS: ABG Base Excess -0.9 mmol/L; ABG HCO3 26 mmol/L (22-26); ABG pCO2 57 mmHg (32-45); ABG pH 7.27 (7.35-7.45); ABG pO2 87 mmHg (83-108)
--- NOTE | 2022-10-11 17:25 | P.PNCC_ITS ---
Subjective Subjective Date of Service: 10/11/22 Interval History: Mr. Holder was transferred to ICU on Oct 07 with acute respiratory failure 2? 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 According to our [facility] records, the patient presented to the [facility] ED in April of 2021 with a similar picture.? At that time, the patient had a large simple left-sided pleural effusion.? Because we had no thoracic coverage at that time, the patient was transferred to [facility].? He was in the hospital there for 2 weeks.? He had his left pleural effusion drained.? The drainage was bloody, negative for malignancy and negative for infection.? During that admission, the patient was seen by thoracic surgery there and was thought to have persistent lung trapping and effusion.? 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 He was given tPA with significant symptomatic improvement, almost back to baseline.? He therefore did not undergo the planned VATS procedure.? He was ultimately discharged to rehab with PleurX-type catheter. I don?t have any f/u from that, but our records show that the patient has had a number of subsequent outpatient visits within the [facility] system for general medical f/u with cardiology (chronic Afib and HTN) and with his PMD (diabetes and health maint).? There is nothing in the notes from those visit that pertains to the aforementioned pneumonia or drainage catheter, including in his last outpatient primary care health maint visit of 09/10/22. I spoke to the patient?s HCP (Demar, cell [phone]) at length about current situation and what happened at [facility] last year.? Demar is the son of the patient?s long time girlfriend, who just recently.? Demar couldn?t tell me much.? He did tell me Mr. Holder was in the ICU here at [facility] about 10 years ago, on dialysis in deep sepsis, and was rescued from the .? That sepsis episode was somehow related to a bad hip he had.? Subsequent to that, he had his hip replaced.? He is not sure which hip. ECHO report from 03/10/22 showed:? Normal LV wall thickness and function, EF 65- 70%.? Moderate septal asymmetric hypertrophy.? Mildly increased RV size with normal function.? Mildly dilated LA and RA.? No significant valvular Doppler abnormalities.? IVC size was normal with greater than 50% inspiratory collapse. HISTORY OF PRESENT ILLNESS:? On 10/06/22, the patient presented to the walk in clinic with SOB, tachypnea, and cough, and was referred directly to the ED.? The patient was admitted to Medicine that night by Dr. Vaughn and started on Abx.? See subsequent inpatient notes.? Bottom line is that Chest CT showed a consolidated left lung base with volume loss.? There was a lot a large loculated left-sided pleural effusion with thickening of the wall.? There were multiple foci of air within the collection, possibly secondary to either infection or a bronchopleural fistula. 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 He was seen by NIRMAL Quintanilla and intubated.? He was transferred to the ICU.? Antibiotics were changed to vanco and Zosyn.? Thru that day, he had a mild lactic acidosis, and required increasing doses of Levophed, up to 0.3ug, and a bicarb drip. ECHO that day showed LV size and function normal with ejection fraction about 60%.? No RWMAs.? Right ventricle was enlarged with RV:LV cavity ratio about 1.5.? Trace AI by color-flow.? Trace MR by color flow.? Trace TR by color-flow.? CWD measured 2.5 m/sec (gradient 25 mm).? IVC 2.2 cm with about 25% insp collapse.? RVSP 40mm.? The patient had no BP response to a fluid bolus.? Creat increased from 0.6 on admission to 1.2.? We put an A-line in.? Sputum Gram stain showed 2+ polys with a polymicrobial justus.? The case was discussed with IR and w Dr. Degroot at length. Because the patient might have been on Eliquis, thoracentesis was delayed until the next day (10/08).? The patient was taken to CT scan for planned thoracentesis and chest tube placement.? On turning the patient into the right lateral decubitus position, a cupful of very foul-smelling, acevedo-cruz pus poured out of the patient's endotracheal tube.? The patient became hemod unstable.? The procedure was abandoned and the patient brought back to the ICU.? Vasopressin was added.? He stabilized at a Levophed dose of 0.35 mcg and vasopressin 0.04 units. That afternoon, Dr. Ambrocio placed a 10Fr pigtail into the empyema at the bedside via US.? About half a cup of the acevedo/cruz pus was obtained and sent to Micro lab.? The catheter was placed to wall suction.? Post-procedure chest x-ray shows much better expansion of the left lung with significant drainage of the pleural fluid.? Right lung infiltrates appeared increased. Overnight stabilized significantly.? By the morning of Oct 09, vasopressin was off, Levophed was down to 0.15ug the bicarb drip came off, and ventilatory and oxygenation parameters were much improved.? Bronchoscopy by Dr. Contreras cleaned him out and an endobronchial lesion was noted in the left lower lobe segment.? Bronchial washings were collected and therapeutic cleaning was provided of both lungs, primarily the left where the purulent secretions were located.? Two specimens were collected from the endobronchial lesion, along w bronchial washings for microbiology and cytology. Yesterday, had major problems achieving adequate tidal vols.? Overnight, ventilation and oxygenation problems worsening, and a VBG at 10pm showed a pCO2 of 106.? Ventilation mode was changed to VC+ 400cc and the pCO2 gradually came down.? Oxygenation has continued to be a problem.? On FiO2 90%/+10 this morning, Sat was only 90%.? Upped the PEEP to +14, and there?s been no improvement in the Sat.? CXR now shows no PTX.? Infiltrates on both sides look worse. Sedated now on P20 and F50.? Also on Levophed 0.28ug, and esmolol 20ug for HR control.? HR 107, chronic atrial fibrillation.? BP 100/67.? On VC+ 24, 400cc, 90%/+14, RR is 24, Vt 380cc, Ve 9.2L, PIP 37cm, ETCO2 20mm, Sat 91%.? ABG just now 7.26/57/86/-0.? Tmax 100.6.? No JVD at 30?.? Left chest hardly moving, few BS.? Right lung very rhonchorous,? 2+ central edema.? His feet are now purpuric and cooler again, as the Levophed dose has increased. LABORATORY DATA:? Below.? Notably, WBC is worse.? Plat count is dropping.? BUN/creatinine up slightly.? Lactic acid 2.2. MICRO:? All the resp specimens and chest tube spec were growing Proteus.? The bronch specimen now also growing poss enterococcus. Venous Duplex US both LEs:? No DVT. Arterial? US both LEs:? Normal triphasic flow throughout. No areas of velocity to suggest any significant stenoses. ?No evidence of any hemodynamically significant lower extremity arterial disease. IMPRESSION: 1. Underlying chronic Afib. 2. Underlying RHF. 3. Recurrent left pneumonia with empyema, very possibly/likely w trapped lung.? 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 My suspicion is that rupture of the BPF is what lead to his sudden resp distress on 10/07.? He?ll need a decortication.? Discussed with Dr. Degroot, we?ll plan that for next week.? Left side not moving right now.? Needs urgent bronchoscopy. 4. Acute resp failure.? 2? above.? Librado with worsening infiltrates, it?s doubtful that he?ll be extubatable before his decortication. 5. Septic shock.? Worse, altho lactate is unchanged. 6. ID:? Switch abx to ceftriaxone. 7. PEPE.? 2? sepsis.? Mild so far, and phos is still low. 8. ? Significant peripheral vascular disease.? Might lose his right big toe.? Refer to Dr. Saldana after he gets better. 9. High residuals:? Resolved w Reglan and lactulose. 10. Hypokalemia.? Repleted. 11. Nutrition.? At goal rate Promote. Critical care time (includ mult visits to bedside to address ventilatory and oxygenation problems; excluding procedures):? 75+ min. Critical Care Time (minutes): 75 Physical Exam Vital Signs: Vital Signs: Last Vital Signs Temp 100.6 F H 10/11/22 17:00 Pulse 117 H 10/11/22 17:00 Resp 24 H 10/11/22 17:00 BP 102/69 10/11/22 17:00 Pulse Ox 91 L 10/11/22 17:00 O2 Del Method 10/11/22 17:00 FiO2 90 10/11/22 17:00 BMI result Body Mass Index 32.9 Objective Data Labs CBC & Chem 7: 10/11/22 05:14 10/11/22 06:49 Labs: Laboratory Results - last 24 hr 10/10/22 10/10/22 10/10/22 17:54 21:57 22:04 WBC RBC Hgb Hct MCV MCH MCHC RDW Plt Count MPV Absolute Nucleated RBC Nucleated RBC % (auto) aPTT Heparin Protocol 64.4 O2 Saturation 92.0 ABG pH at Pt Temp 7.23 L ABG pCO2 at Pt Temp 106 H* ABG pO2 at Pt Temp 80 L ABG HCO3 45 H ABG Base Excess (Actual) 13.6 Sodium Potassium Chloride Carbon Dioxide Anion Gap BUN Creatinine Estim Creat Clear Calc Estimated GFR POC Glucose 170 H Random Glucose Calcium Phosphorus Magnesium Total Bilirubin AST ALT Alkaline Phosphatase Total Protein Albumin Procalcitonin 10/10/22 10/11/22 10/11/22 23:43 00:11 00:32 WBC RBC Hgb Hct MCV MCH MCHC RDW Plt Count MPV Absolute Nucleated RBC Nucleated RBC % (auto) aPTT Heparin Protocol O2 Saturation 96.0 ABG pH at Pt Temp 7.32 L ABG pCO2 at Pt Temp 78 H* ABG pO2 at Pt Temp 89 ABG HCO3 40 H ABG Base Excess (Actual) 11.8 Sodium 144 Potassium 3.9 D Chloride 107 Carbon Dioxide 25 Anion Gap 16 BUN 22 H Creatinine 1.56 H Estim Creat Clear Calc 49.3 Estimated GFR 44 POC Glucose 198 H Random Glucose 227 H Calcium 8.1 L Phosphorus Magnesium Total Bilirubin AST ALT Alkaline Phosphatase Total Protein Albumin Procalcitonin 10/11/22 10/11/22 10/11/22 02:17 04:05 05:14 WBC 29.0 H RBC 3.20 L Hgb 10.5 L Hct 34.0 L MCV 106.3 H D MCH 32.8 MCHC 30.9 L RDW 18.4 H Plt Count 110 L MPV 10.9 Absolute Nucleated RBC 0.000 Nucleated RBC % (auto) 0.0 aPTT Heparin Protocol 63.7 O2 Saturation 96.0 ABG pH at Pt Temp 7.34 L ABG pCO2 at Pt Temp 69 H* ABG pO2 at Pt Temp 85 ABG HCO3 38 H ABG Base Excess (Actual) 10.0 Sodium Potassium Chloride Carbon Dioxide Anion Gap BUN Creatinine Estim Creat Clear Calc Estimated GFR POC Glucose Random Glucose Calcium Phosphorus Magnesium Total Bilirubin AST ALT Alkaline Phosphatase Total Protein Albumin Procalcitonin 10/11/22 10/11/22 10/11/22 05:14 05:14 05:26 WBC RBC Hgb Hct MCV MCH MCHC RDW Plt Count MPV Absolute Nucleated RBC Nucleated RBC % (auto) aPTT Heparin Protocol O2 Saturation 91.0 ABG pH at Pt Temp 7.30 L ABG pCO2 at Pt Temp 54 H ABG pO2 at Pt Temp 66 L ABG HCO3 27 H ABG Base Excess (Actual) 0.1 Sodium Potassium Chloride Carbon Dioxide Anion Gap BUN Creatinine Estim Creat Clear Calc Estimated GFR POC Glucose Random Glucose Calcium Phosphorus 3.6 Magnesium 2.0 Total Bilirubin AST ALT Alkaline Phosphatase Total Protein Albumin Procalcitonin 3.13 10/11/22 10/11/22 10/11/22 06:02 06:49 11:54 WBC RBC Hgb Hct MCV MCH MCHC RDW Plt Count MPV Absolute Nucleated RBC Nucleated RBC % (auto) aPTT Heparin Protocol O2 Saturation ABG pH at Pt Temp ABG pCO2 at Pt Temp ABG pO2 at Pt Temp ABG HCO3 ABG Base Excess (Actual) Sodium 142 Potassium 3.7 Chloride 106 Carbon Dioxide 26 Anion Gap 14 BUN 25 H Creatinine 1.69 H Estim Creat Clear Calc 46.3 Estimated GFR 40 POC Glucose 226 H 263 H Random Glucose 267 H D Calcium 8.4 Phosphorus Magnesium Total Bilirubin 1.1 H AST 10 D ALT 7 Alkaline Phosphatase 190 H D Total Protein 5.1 L Albumin 2.8 L Procalcitonin 10/11/22 17:10 WBC RBC Hgb Hct MCV MCH MCHC RDW Plt Count MPV Absolute Nucleated RBC Nucleated RBC % (auto) aPTT Heparin Protocol O2 Saturation 95.0 ABG pH at Pt Temp 7.27 L ABG pCO2 at Pt Temp 57 H ABG pO2 at Pt Temp 87 ABG HCO3 26 ABG Base Excess (Actual) -0.9 Sodium Potassium Chloride Carbon Dioxide Anion Gap BUN Creatinine Estim Creat Clear Calc Estimated GFR POC Glucose Random Glucose Calcium Phosphorus Magnesium Total Bilirubin AST ALT Alkaline Phosphatase Total Protein Albumin Procalcitonin Microbiology Microbiology Results: Microbiology 10/08/22 16:18 Pleura Gram Stain - Final 10/08/22 16:18 Pleura Anaerobic Culture - Preliminary Culture in progress. 10/08/22 16:18 Pleura Body Fluid Culture - Preliminary Proteus mirabilis Enterococcus/Streptococcus sp 10/09/22 09:00 Bronchial Washings Gram Stain - Final 10/09/22 09:00 Bronchial Washings Routine Culture - Preliminary Culture in progress. 10/08/22 08:22 Sputum - Suctioned Gram Stain - Final 10/08/22 08:22 Sputum - Suctioned Sputum Culture - Preliminary Proteus mirabilis 10/08/22 14:12 Sputum - Suctioned Gram Stain - Final 10/08/22 14:12 Sputum - Suctioned Sputum Culture - Preliminary Proteus mirabilis 10/07/22 01:14 Sputum - Induced Gram Stain - Final 10/07/22 01:14 Sputum - Induced Sputum Culture - Final Proteus mirabilis 10/06/22 18:39 Blood - Venous Blood Culture - Preliminary No growth after 48 hours. 10/06/22 18:41 Blood - Venous Blood Culture - Preliminary No growth after 48 hours. Quality Stroke Does the patient have a stroke diagnosis?: No VTE Prior VTE?: No VTE Risk Level:: Medical - moderate - high VTE Device Contraindication: Treatment Not Indicated VTE Drug Contraindication: N/A - Med Ordered Critical Care Time Critical Care Time (minutes): 90
[2022-10-11 17:27] LABS: Lactic Acid 2.2 mmol/L (0.5-2.0)
[2022-10-11 17:53] LABS: Glucose, Whole Blood 187 mg/dL (60-115)
[2022-10-11 17:54] LABS: Cancel Lactic Acid Canceled
--- NOTE | 2022-10-11 18:02 | HE.PHANOTE ---
RE VANCO PATIENT RESTARTED ON VANCO @ 750 MG Q24H. PREDICTED AUC 449, TROUGH 13.4. NEXT LEVEL DUE 10/13 @1700 DARRICK
--- NOTE | 2022-10-11 18:07 | W.PM.CCHP ---
Procedures Date of Service Date of Service: 10/11/22 Arterial Line Size (Gauge): 20 Bronchoscopy Bronchoscopy Comments: PROCEDURE NOTE:? Fiberoptic bronchoscopy INDICATIONS:? Worsening oxygenation and ventilation in the patient with left sided pneumonia with empyema and BPF.? Left lung not moving.? R/o mucus plug. ANESTHESIA:? Propofol plus fentanyl sedation. PROCEDURE:? The bronchoscope was introduced without incident.? Inspection was carried out down to the level of the segmental bronchi.? The right lung was clean.? The left lung had acevedo brown secretions issuing out of both lobes, lower lobe worse than right.? Levaged till clear.? The procedure was terminated without incident.? No specimens sent. The patient tolerated the procedure well without complications. At end of the procedure, left lung is now moving a little. Consent for Procedure: Emergent-no informed consent obtained
[2022-10-11] MEDS: fentaNYL citrate/NS 1,000 MCG/100 ML PLAST..BAG 5 MCG IVCONT (18:23)
[2022-10-11] MEDS: Esmolol HCl/NaCl Iso 2,500 MG/250 ML IV.SOLN 11.74 MG IVCONT (18:35)
[2022-10-11] MEDS: vancomycin HCL 750 MG in 0.9 % Sodium Chloride 250 ML 265 MG IV (20:31)
[2022-10-11 23:07] LABS: ABG Refer to POC result
[2022-10-12] VITALS (48 sets, daily range): BP systolic 78–149; BP diastolic 52–86; PULSE 94–142; RESP 17–30; TEMP 34–38.2; O2SAT 86–100; BMI 33.7
[2022-10-12 00:07] LABS: Glucose, Whole Blood 210 mg/dL (60-115)
[2022-10-12] MEDS: propofoL 1,000 MG/100 ML VIAL 11.03 MG IVCONT (02:29)
[2022-10-12] MEDS: Heparin Sodium,Porcine/1/2NS 25,000 UNIT/250 ML IV.SOLN 13.69 UNIT IVCONT (02:53)
[2022-10-12] MEDS: Furosemide 200 MG in 0.9 % Sodium Chloride 80 ML IVCONT ×2 (03:57→17:26)
[2022-10-12] MEDS: Furosemide 20 MG/2 ML VIAL IVPUSH (03:57)
[2022-10-12 05:10] LABS: ABG Base Excess -1.4 mmol/L; ABG HCO3 25 mmol/L (22-26); ABG pCO2 50 mmHg (32-45); ABG pO2 73 mmHg (83-108)
[2022-10-12 05:18] LABS: Basophils Absolute Auto 0.1 X10*3/uL (0.0-0.2); Basophils Percent Auto 0.5 % (0-2); Eosinophils Absolute Auto 0.1 X10*3/uL (0.0-0.4); Eosinophils Percent Auto 0.5 % (0-4); Hematocrit 35.4 % (42.0-52.0); Hemoglobin 11.1 g/dl (14.0-18.0); Imm Gran Abs Auto 1.02 X10*3/uL (0.00-0.03); Imm Gran Pct Auto 4.2 % (0.0-0.4); Lymphocytes Percent Auto 4.1 % (20-40); MANUAL DIFF FLAG SCAN; Mean Corpuscular HGB Conc 31.4 g/dl (31.0-36.0); Mean Corpuscular Hemoglobin 32.2 pg (27.0-33.0); Mean Corpuscular Volume 102.6 fL (80.0-98.0); Mean Platelet Volume 12.1 fL (9.4-12.4); Monocytes Absolute Auto 1.7 X10*3/uL (0.1-1.2); Monocytes Percent Auto 7.2 % (2-11); NRBC Pct Auto 0.1 /100WBC (0.0-0.2); Neutrophils Absolute Auto 20.3 x10*3/uL (2.0-8.3); Neutrophils Percent Auto 83.5 % (45-73); Red Blood Count 3.45 X10*6/uL (4.60-5.80); Red Cell Distribution Width 18.5 % (11.0-16.0); SCAN SMEAR FLAG 1; White Blood Count 24.3 X10*3/uL (4.8-10.8)
[2022-10-12 05:21] LABS: Platelet Count 97 X10*3/uL (160-400)
[2022-10-12 05:30] LABS: Glucose, Whole Blood 216 mg/dL (60-115)
[2022-10-12] MEDS: Insulin Lispro 100 UNIT/ML 3 ML VIAL SUBCUT ×3 (05:30→23:49)
[2022-10-12 05:38] LABS: Lactic Acid 2.1 mmol/L (0.5-2.0)
[2022-10-12 05:43] LABS: Alanine Aminotransferase < 6 U/L (0-40); Albumin Level 2.5 g/dL (3.5-5.0); Alkaline Phosphatase 183 U/L (39-117); Anion Gap 16 (12-20); Aspartate Amino Transferase 13 U/L (5-37); Bilirubin Total 1.3 mg/dL (0.0-1.0); Blood Urea Nitrogen 30 mg/dL (9-16); Calcium 8.1 mg/dL (8.4-10.2); Carbon Dioxide 23 mmol/L (22-29); Chloride 104 mmol/L (96-108); Creatinine Clr Calc Pharmacy 42.5; Estimated Glomerular Filt Rate 36; Glucose Random 226 mg/dL (60-115); Magnesium 1.8 mg/dL (1.6-2.6); Phosphorus 4.1 mg/dL (2.7-4.5); Potassium 4.4 mmol/L (3.3-5.1); Sodium 139 mmol/L (135-145); Total Protein 5.3 g/dL (6.5-8.0)
[2022-10-12] MEDS: Heparin Sodium,Porcine 5,000 UNIT/ML VIAL 3900 UNIT IVPUSH (05:46)
[2022-10-12 05:48] LABS: SLIDE REVIEW VERIFIED
[2022-10-12 07:13] LABS: Reflex Lactate? Lactic Acid Added
--- NOTE | 2022-10-12 07:24 | HE.PHANOTE ---
Vancomycin Dosing Addendum Patient was d/c'd then continued. Patients Scr is 1.86 up from 1.69. Patient has sepsis therefore aggressive dosing is needed. Changed 750 mg dose to 1250 mg. Insight shows that 750 mg would be 298 mg/L/hr AUC, with 1250 mg is 483 mg/L/hr. Level to be drawn 10/13 @1700.
[2022-10-12 07:53] LABS: ~Lactic Acid-LAB USE ONLY 2.8 mmol/L (0.5-2.0)
[2022-10-12 08:10] LABS: ABG Refer to POC result
[2022-10-12] MEDS: 0.9 % Sodium Chloride Flush 3 ML SYRINGE IVFLUSH (08:15)
[2022-10-12] MEDS: Chlorhexidine Gluc Oral Rinse 15 ML MOUTHWASH BUCCAL ×3 (08:15→20:43)
[2022-10-12] MEDS: Albumin Human 25 % 100 ML IV ×4 (08:15→11:06)
--- NOTE | 2022-10-12 08:49 | MHC.CLN ---
F/U PT REMAINS INTUBATED AND SEDATED PT RECEIVING PROMOTE AT MAX GOAL RATE 60ML/HR PROVIDES 1440KCALS (1877KCALS WITH SEDATION; 23KCALS/KG), 90G PROTEIN (1.1G/KG), 1208ML FREE WATER FROM FORMULA MONITOR TOLERANCE, RESIDUALS AND LYTES
[2022-10-12] MEDS: Rocuronium Bromide 50 MG/5 ML VIAL IVPUSH ×3 (09:18→16:20)
[2022-10-12 09:32] LABS: Reflex Lactate? 2 Y
[2022-10-12] MEDS: propofoL 1,000 MG/100 ML VIAL 16.54 MG IVCONT ×2 (09:37→14:45)
--- NOTE | 2022-10-12 11:29 | PC.NURSE ---
08:30 new CVP line set up, A-line saline bag and tubing changed. 09:00 per MD chest tube drainage system set up (new) and left lateral chest tube connected to low wall suction. 09:14 pt had large amounts thick, cruz/brown inline sputum. Inline suctioning provided x4. 09:15 Pt had air flow around ET tube cuff. RT and MD called to bedside. RT investigated for cuff leak. MD and RT exchanged ET tube. 10/12/22 New ET tube 8.0, 25 @lip. 09:17 Pt using accessory muscles to breathe. Vent asynchrony, Low volumes 99. 09:18 Per MD 50 mg IVP Rocuronium given. Pt vent synchrony improved, volumes improved. 10:00 full bed bath and q2H mouth care provided.
[2022-10-12 12:15] LABS: Glucose, Whole Blood 143 mg/dL (60-115)
[2022-10-12 12:19] LABS: PTT Heparin Drip 56.1 SEC (53-77.9)
[2022-10-12] MEDS: Esmolol HCl/NaCl Iso 2,500 MG/250 ML IV.SOLN 11.74 MG IVCONT (13:02)
[2022-10-12] MEDS: cefTRIAXone sodium 1 GM in 0.9 % Sodium Chloride 50 ML IV (14:00)
--- NOTE | 2022-10-12 16:01 | PM.PNTS ---
Subjective Subjective Date of Service: 10/12/22 Interval history: 71 y/o gentleman who remains intubated and sedated with worsening patchy infiltrates on the right and persistent loculated left pleural effusion. Today vent settings 70% FiO2 with 12 PEEP. ABG stable with pO2 in the low 90's. Drips: Fentanyl, Propofol, Levophed, Esmolol, Piperacillin, Lasix, and Heparin gtt. Leukocytosis labile and Lactate increased to 2.8 today from 2.2. Cultures + Proteus/Enterococcus; presently on Zosyn. Physical Exam Vital Signs: Vital Signs: Last Vital Signs Temp 98.4 F 10/12/22 12:00 Pulse 127 H 10/12/22 15:00 Resp 18 10/12/22 15:00 BP 111/68 10/12/22 15:00 Pulse Ox 90 L 10/12/22 15:00 O2 Del Method 10/12/22 15:00 FiO2 70 10/12/22 15:00 BMI result Body Mass Index 33.7 Const: Other: remains intubated and sedated General: ill appearing Chest: Chest palpation & inspection: normal inspection of the chest Resp: Other: + rhonchi on right and expiratory wheezes on left. Left pigtail drain in with no drainage Cardio: Other: irregularly regular GI: Other: abdomen mildly distended and firm but with + loose stool per RN : Other: Luna catheter in place Skin: Other: + lymphadema with straw colored fluid draining through skin Neuro: Other: sedated on Propofol Extrem: Other: +3-4 peripheral edema, PVD, unable to palpate DP pulses as previously able Psych: Other: unable to assess Procedures Date of Service Date of Service: 10/12/22 Arterial Line Size (Gauge): 20 Progress Note: A&P Assessment and plan (1) Respiratory failure: Status: Acute (2) Pneumonia: Status: Acute (3) Recurrent left pleural effusion: Status: Acute Plan Plan Proteus/Enterococcus Pneumonia, loculated pleural effusion, and Afib on anticoagulation. 1.? Reviewed CT scan of chest with Dr. Degroot and pt is not a surgical candidate based upon current comorbidities and acute issues. pt would likely not survive surgery at this time. 2.? ? component of ARDS versus pneumonia (increasing on right side) underlying due to increased pulmonary airspace opacities.? High PEEP is concerning for barotrauma. If difficulty oxygenating may need to prone patient.? pt remains intubated/sedated for respiratory failure. 3. We will flush left pigtail daily. Atrium to - 20 mm Hg. 4. Benefit versus risk of TPA is risky due to concerns of left bronchopleural fistula + risk of bleeding due to present anticoagulation. 4.? Continue IV Antibiotics and supportative care. 5.? Care provided by primary team.? Time Spent With Patient Time: Time Spent With Patient Time: Total time managing care of this patient today ____ minutes. Quality Stroke Does the patient have a stroke diagnosis?: No VTE Prior VTE?: No VTE Risk Level:: Medical - moderate - high VTE Device Contraindication: Treatment Not Indicated VTE Drug Contraindication: N/A - Med Ordered
--- NOTE | 2022-10-12 16:18 | P.PNCC_ITS ---
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 that resolved on tPA and no procedure was done and he had a repeat episode of hypoxic respiratory failure with evidence of an air-fluid level in what appears to be a complicated left pleural effusion and sure enough pus was aspirated via a pigtail catheter that that was placed in left between 250 and may be 400 cc and it is growing the same organism that the sputum is which is Proteus predominantly and Enterococcus but I do not see any evidence of anaerobic culture and the patient is on vancomycin and ceftriaxone so we do not really have anaerobic coverage He remains toxic and today is a ET tube failed and had to emergently reintubate him with alevism of his volumes and his persistently rapid atrial fibri llation heart rate did come down from approximately 160 in to between 120 and 135 with blood pressures of about 106/70 and oxygen saturations are marginal 86- 90% and unfortunately he has got very high peak airway pressures and he has got extensive of bilateral areas of consolidation On wall suction and there is no evidence of a persistent air leak but there is clearly evidence of gas my and that in the pleural space and on the left side and there is still some some degree of a persistent left pleural effusion and we are awaiting evaluation by thoracic surgery now that he has had his repeat CT scan done Critical Care Time (minutes): 60 Physical Exam Vital Signs: Vital Signs: Last Vital Signs Temp 98.4 F 10/12/22 12:00 Pulse 124 H 10/12/22 15:59 Resp 18 10/12/22 15:00 BP 111/68 10/12/22 15:00 Pulse Ox 90 L 10/12/22 15:00 O2 Del Method 10/12/22 15:00 FiO2 70 10/12/22 15:00 BMI result Body Mass Index 33.7 Vital signs as stated above Sedated and intubated He has got the massive anasarca but he has got peripheral acrocyanosis most especially his toes CVP markedly elevated in the in the mid 20s and is currently on a Lasix drip because he does have an iatrogenic issue documentation of nearly 20 L positivity over several days The abdomen is is relatively soft there is no apparent tenderness no palpable organomegaly Bedside echo shows potentially concentric hypertrophy but preserved systolic reserve without segmental wall motion abnormality ejection fraction exceeding 60% but marked right heart dilatation and there is some persistent on and inferior vena caval did a dilatation as well Objective Data Labs CBC & Chem 7: 10/12/22 05:00 10/12/22 05:00 Labs: Laboratory Results - last 24 hr 10/11/22 10/11/22 10/11/22 17:06 17:10 17:50 WBC RBC Hgb Hct MCV MCH MCHC RDW Plt Count MPV Immature Gran % (Auto) Neut % (Auto) Lymph % (Auto) Kimble % (Auto) Eos % (Auto) Baso % (Auto) Lymph # (Auto) Kimble # (Auto) Eos # (Auto) Baso # (Auto) Abs Immat Gran (auto) Absolute Neuts (auto) Absolute Nucleated RBC Nucleated RBC % (auto) Smear Tech's Comments aPTT Heparin Protocol O2 Saturation 95.0 ABG pH at Pt Temp 7.27 L ABG pCO2 at Pt Temp 57 H ABG pO2 at Pt Temp 87 ABG HCO3 26 ABG Base Excess (Actual) -0.9 Sodium Potassium Chloride Carbon Dioxide Anion Gap BUN Creatinine Estim Creat Clear Calc Estimated GFR POC Glucose 187 H Random Glucose Lactic Acid 2.2 H* Lactic Acid F/U @ 2Hr Lactic Acid F/U @ 4Hr Calcium Phosphorus Magnesium Total Bilirubin AST ALT Alkaline Phosphatase Total Protein Albumin 10/11/22 10/12/22 10/12/22 23:30 05:00 05:00 WBC 24.3 H RBC 3.45 L Hgb 11.1 L Hct 35.4 L MCV 102.6 H MCH 32.2 MCHC 31.4 RDW 18.5 H Plt Count 97 L MPV 12.1 Immature Gran % (Auto) 4.2 H Neut % (Auto) 83.5 H Lymph % (Auto) 4.1 L Kimble % (Auto) 7.2 Eos % (Auto) 0.5 Baso % (Auto) 0.5 Lymph # (Auto) 1.0 L Kimble # (Auto) 1.7 H Eos # (Auto) 0.1 Baso # (Auto) 0.1 Abs Immat Gran (auto) 1.02 H Absolute Neuts (auto) 20.3 H Absolute Nucleated RBC 0.020 H Nucleated RBC % (auto) 0.1 Smear Tech's Comments VERIFIED aPTT Heparin Protocol 46.0 L D O2 Saturation ABG pH at Pt Temp ABG pCO2 at Pt Temp ABG pO2 at Pt Temp ABG HCO3 ABG Base Excess (Actual) Sodium Potassium Chloride Carbon Dioxide Anion Gap BUN Creatinine Estim Creat Clear Calc Estimated GFR POC Glucose 210 H Random Glucose Lactic Acid Lactic Acid F/U @ 2Hr Lactic Acid F/U @ 4Hr Calcium Phosphorus Magnesium Total Bilirubin AST ALT Alkaline Phosphatase Total Protein Albumin 10/12/22 10/12/22 10/12/22 05:00 05:00 05:03 WBC RBC Hgb Hct MCV MCH MCHC RDW Plt Count MPV Immature Gran % (Auto) Neut % (Auto) Lymph % (Auto) Kimble % (Auto) Eos % (Auto) Baso % (Auto) Lymph # (Auto) Kimble # (Auto) Eos # (Auto) Baso # (Auto) Abs Immat Gran (auto) Absolute Neuts (auto) Absolute Nucleated RBC Nucleated RBC % (auto) Smear Tech's Comments aPTT Heparin Protocol O2 Saturation 92.0 ABG pH at Pt Temp 7.30 L ABG pCO2 at Pt Temp 50 H ABG pO2 at Pt Temp 73 L ABG HCO3 25 ABG Base Excess (Actual) -1.4 Sodium 139 Potassium 4.4 Chloride 104 Carbon Dioxide 23 Anion Gap 16 BUN 30 H Creatinine 1.86 H Estim Creat Clear Calc 42.5 Estimated GFR 36 POC Glucose Random Glucose 226 H Lactic Acid 2.1 H* Lactic Acid F/U @ 2Hr Lactic Acid F/U @ 4Hr Calcium 8.1 L Phosphorus 4.1 Magnesium 1.8 Total Bilirubin 1.3 H AST 13 ALT < 6 Alkaline Phosphatase 183 H Total Protein 5.3 L Albumin 2.5 L 10/12/22 10/12/22 10/12/22 05:27 07:28 11:14 WBC RBC Hgb Hct MCV MCH MCHC RDW Plt Count MPV Immature Gran % (Auto) Neut % (Auto) Lymph % (Auto) Kimble % (Auto) Eos % (Auto) Baso % (Auto) Lymph # (Auto) Kimble # (Auto) Eos # (Auto) Baso # (Auto) Abs Immat Gran (auto) Absolute Neuts (auto) Absolute Nucleated RBC Nucleated RBC % (auto) Smear Tech's Comments aPTT Heparin Protocol O2 Saturation ABG pH at Pt Temp ABG pCO2 at Pt Temp ABG pO2 at Pt Temp ABG HCO3 ABG Base Excess (Actual) Sodium Potassium Chloride Carbon Dioxide Anion Gap BUN Creatinine Estim Creat Clear Calc Estimated GFR POC Glucose 216 H Random Glucose Lactic Acid Lactic Acid F/U @ 2Hr 2.8 H* Lactic Acid F/U @ 4Hr 2.0 Calcium Phosphorus Magnesium Total Bilirubin AST ALT Alkaline Phosphatase Total Protein Albumin 10/12/22 10/12/22 11:52 12:10 WBC RBC Hgb Hct MCV MCH MCHC RDW Plt Count MPV Immature Gran % (Auto) Neut % (Auto) Lymph % (Auto) Kimble % (Auto) Eos % (Auto) Baso % (Auto) Lymph # (Auto) Kimble # (Auto) Eos # (Auto) Baso # (Auto) Abs Immat Gran (auto) Absolute Neuts (auto) Absolute Nucleated RBC Nucleated RBC % (auto) Smear Tech's Comments aPTT Heparin Protocol 56.1 D O2 Saturation ABG pH at Pt Temp ABG pCO2 at Pt Temp ABG pO2 at Pt Temp ABG HCO3 ABG Base Excess (Actual) Sodium Potassium Chloride Carbon Dioxide Anion Gap BUN Creatinine Estim Creat Clear Calc Estimated GFR POC Glucose 143 H Random Glucose Lactic Acid Lactic Acid F/U @ 2Hr Lactic Acid F/U @ 4Hr Calcium Phosphorus Magnesium Total Bilirubin AST ALT Alkaline Phosphatase Total Protein Albumin Microbiology Microbiology Results: Microbiology 10/08/22 16:18 Pleura Gram Stain - Final 10/08/22 16:18 Pleura Anaerobic Culture - Preliminary Culture in progress. 10/08/22 16:18 Pleura Body Fluid Culture - Final Proteus mirabilis Enterococcus faecalis 10/09/22 09:00 Bronchial Washings Gram Stain - Final 10/09/22 09:00 Bronchial Washings Routine Culture - Final Proteus mirabilis Enterococcus faecalis 10/08/22 08:22 Sputum - Suctioned Gram Stain - Final 10/08/22 08:22 Sputum - Suctioned Sputum Culture - Final Proteus mirabilis Enterococcus faecalis 10/08/22 14:12 Sputum - Suctioned Gram Stain - Final 10/08/22 14:12 Sputum - Suctioned Sputum Culture - Final Proteus mirabilis Enterococcus faecalis 10/06/22 18:39 Blood - Venous Blood Culture - Final No growth after 5 days. 10/06/22 18:41 Blood - Venous Blood Culture - Final No growth after 5 days. 10/07/22 01:14 Sputum - Induced Gram Stain - Final 10/07/22 01:14 Sputum - Induced Sputum Culture - Final Proteus mirabilis Progress Note: A&P Assessment and plan (1) Respiratory failure: Status: Acute (2) Pneumonia: Status: Acute (3) Recurrent left pleural effusion: Status: Acute (4) Permanent atrial fibrillation: Status: Acute (5) Diabetes mellitus: Status: Acute (6) Tachycardia: Status: Acute (7) Shortness of breath: Status: Acute (8) Chronic atrial fibrillation: Status: Acute (9) Asthma: Status: Acute (10) Anemia: Status: Acute (11) Sacroiliac joint dysfunction of left side: Status: Acute (12) Hypertension: Status: Acute (13) BPH (benign prostatic hyperplasia): Status: Acute (14) Overweight (BMI 25.0-29.9): Status: Acute (15) Hypercholesterolemia: Status: Acute (16) Type 2 diabetes mellitus with hyperglycemia: Status: Acute (17) Tobacco abuse: Status: Acute (18) CVA (cerebral vascular accident): Status: Acute (19) Empyema of left pleural space: Status: Acute (20) Acute renal failure: Status: Acute (21) Chronic renal failure, stage 3 (moderate): Status: Acute (22) Cor pulmonale, acute: Status: Acute Plan So unfortunately we still have a 100% FiO2 requirement and tidal volumes somewhat limited because of high peak airway pressures and definitely there is an iatrogenic component I think of pulmonary edema which we are working on with the Lasix drip but my other concern because of the persistent leukocytosis and left shift and his poor clinical progression is that we still might be missing a potentially anaerobic organism that were not treating appropriately and given the poly microbial nature of this infection potentially switching ceftriaxone to meropenem my p.o. a wiser approach to broaden coverage and then of course the no potentially the video-assisted thoracoscopy The rapid atrial fibrillation is partially controlled by the esmolol drip but in part it is a response to his hypoxia Quality Stroke Does the patient have a stroke diagnosis?: No VTE Prior VTE?: No VTE Risk Level:: Medical - moderate - high VTE Device Contraindication: Treatment Not Indicated VTE Drug Contraindication: N/A - Med Ordered
--- NOTE | 2022-10-12 16:26 | MHC.CM.PN ---
Patient continues on Mechanical ventilation DP likely STR. PT eval when pt medically cleared.
[2022-10-12] MEDS: vancomycin HCL 1,250 MG in 0.9 % Sodium Chloride 250 ML 166.67 MG IV (18:18)
[2022-10-12] MEDS: Heparin Sodium,Porcine/1/2NS 25,000 UNIT/250 ML IV.SOLN 15.65 UNIT IVCONT (18:23)
[2022-10-12 18:56] LABS: Glucose, Whole Blood 199 mg/dL (60-115)
[2022-10-12 19:45] LABS: PTT Heparin Drip > 200.0 SEC (53-77.9)
[2022-10-12 21:15] LABS: PTT Heparin Drip 46.4 SEC (53-77.9)
[2022-10-12] MEDS: Esmolol HCl/NaCl Iso 2,500 MG/250 ML IV.SOLN 41.08 MG IVCONT (23:04)
[2022-10-12 23:32] LABS: Glucose, Whole Blood 157 mg/dL (60-115)
[2022-10-13] VITALS (64 sets, daily range): BP systolic 68–101; BP diastolic 36–71; PULSE 88–145; RESP 18–26; TEMP 32–38.6; O2SAT 90–95; BMI 33.7
--- NOTE | 2022-10-13 | ECG_ITS ---
Test Reason : qtc check Blood Pressure : / mmHG Vent. Rate : 111 BPM Atrial Rate : 000 BPM P-R Int : 000 ms QRS Dur : 070 ms QT Int : 284 ms P-R-T Axes : 000 064 141 degrees QTc Int : 386 ms Artifact in tracing Atrial fibrillation with rapid ventricular response Low voltage QRS Nonspecific ST and T wave abnormality Abnormal ECG When compared with ECG of 06-OCT-2022 23:55, No significant changes seen Referred By: Sailaja Overton Electronically Signed By:DONA VILLA
[2022-10-13] MEDS: 0.9 % Sodium Chloride Flush 3 ML SYRINGE IVFLUSH ×2 (00:18→14:13)
[2022-10-13] MEDS: Rocuronium Bromide 50 MG/5 ML VIAL IVPUSH (00:26)
[2022-10-13] MEDS: propofoL 1,000 MG/100 ML VIAL 5.51 MG IVCONT (01:33)
[2022-10-13 03:51] LABS: PTT Heparin Drip 49.9 SEC (53-77.9)
[2022-10-13] MEDS: Heparin Sodium,Porcine 5,000 UNIT/ML VIAL 3900 UNIT IVPUSH (04:15)
[2022-10-13] MEDS: Esmolol HCl/NaCl Iso 2,500 MG/250 ML IV.SOLN 58.68 MG IVCONT (04:20)
[2022-10-13 05:25] LABS: ABG Base Excess -6.2 mmol/L; ABG HCO3 27 mmol/L (22-26); ABG pCO2 107 mmHg (32-45); ABG pH 7.01 (7.35-7.45); ABG pO2 83 mmHg (83-108)
[2022-10-13] MEDS: Ampicillin Sodium/Sulbactam Na 1.5 GM in 0.9 % Sodium Chloride 100 ML IV ×4 (05:32→22:51)
[2022-10-13 05:35] LABS: Hematocrit 37.9 % (42.0-52.0); Hemoglobin 11.4 g/dl (14.0-18.0); Mean Corpuscular HGB Conc 30.1 g/dl (31.0-36.0); Mean Corpuscular Hemoglobin 32.3 pg (27.0-33.0); Mean Corpuscular Volume 107.4 fL (80.0-98.0); PLT CLUMP 1; Red Blood Count 3.53 X10*6/uL (4.60-5.80); Red Cell Distribution Width 18.9 % (11.0-16.0); SCAN SMEAR FLAG 1
[2022-10-13 05:37] LABS: Basophils Absolute Auto 0.2 X10*3/uL (0.0-0.2); Basophils Percent Auto 0.5 % (0-2); Imm Gran Abs Auto 1.16 X10*3/uL (0.00-0.03); Imm Gran Pct Auto 3.8 % (0.0-0.4); Lymphocytes Absolute Auto 1.2 X10*3/uL (1.2-4.9); MANUAL DIFF FLAG SCAN; Mean Platelet Volume 12.6 fL (9.4-12.4); Monocytes Percent Auto 6.4 % (2-11); NRBC Pct Auto 0.6 /100WBC (0.0-0.2); Neutrophils Absolute Auto 25.9 x10*3/uL (2.0-8.3); Neutrophils Percent Auto 85.3 % (45-73)
[2022-10-13 05:46] LABS: Platelet Count 96 X10*3/uL (160-400)
[2022-10-13 05:47] LABS: White Blood Count 30.3 X10*3/uL (4.8-10.8)
[2022-10-13 06:07] LABS: ABG Base Excess -7.2 mmol/L; ABG HCO3 24 mmol/L (22-26); ABG pCO2 84 mmHg (32-45); ABG pH 7.06 (7.35-7.45); ABG pO2 77 mmHg (83-108)
[2022-10-13 06:11] LABS: Erythrocyte Sedimentation Rate 18 MM/HR (0-15)
[2022-10-13 06:21] LABS: Alanine Aminotransferase 16 U/L (0-40); Albumin Level 3.3 g/dL (3.5-5.0); Alkaline Phosphatase 151 U/L (39-117); Anion Gap 19 (12-20); Aspartate Amino Transferase 161 U/L (5-37); Bilirubin Total 1.8 mg/dL (0.0-1.0); Blood Urea Nitrogen 41 mg/dL (9-16); Calcium 8.5 mg/dL (8.4-10.2); Carbon Dioxide 26 mmol/L (22-29); Chloride 104 mmol/L (96-108); Estimated Glomerular Filt Rate 28; Glucose Random 113 mg/dL (60-115); Magnesium 2.1 mg/dL (1.6-2.6); Potassium 5.6 mmol/L (3.3-5.1); Sodium 143 mmol/L (135-145); Total Protein 5.8 g/dL (6.5-8.0)
[2022-10-13 06:25] LABS: SLIDE REVIEW VERIFIED
--- NOTE | 2022-10-13 07:14 | PC.NURSE ---
Throughout shift patient w/persistent hypotension requiring restarting vasopressin and increase in levophed. Urine output also steadily decreasing to approximately 15-20 mL/hr. Dr. Overton made aware. ABG w/pH 7.01 and 7.06 respectively, see vent flowsheet for changes made by MD. Lasix and propofol gtts stopped per MD as well this AM. Oncoming RN aware of new changes.
[2022-10-13 08:04] LABS: ABG Base Excess -5.1 mmol/L; ABG HCO3 25 mmol/L (22-26); ABG pCO2 77 mmHg (32-45); ABG pH 7.12 (7.35-7.45); ABG pO2 101 mmHg (83-108)
[2022-10-13 08:11] LABS: PTT Heparin Drip 41.8 SEC (53-77.9)
[2022-10-13 08:16] LABS: Lactic Acid 3.4 mmol/L (0.5-2.0)
[2022-10-13] MEDS: Esmolol HCl/NaCl Iso 2,500 MG/250 ML IV.SOLN 70.42 MG IVCONT (08:28)
[2022-10-13] MEDS: Chlorhexidine Gluc Oral Rinse 15 ML MOUTHWASH BUCCAL ×3 (08:29→20:36)
[2022-10-13] MEDS: Lactulose 20 GM/30 ML SOLUTION G-TUBE ×2 (08:29→20:36)
--- NOTE | 2022-10-13 09:51 | P.PNTS_ITS ---
Subjective Subjective Date of Service: 10/13/22 Interval history: Mr. Holder is a 71 y/o gentleman who was admitted on 10/06/22 with Pneumonia and recurrent left pleural effusion who had a respiratory arrest on 10/07/22 and was intubated.? He subsequently underwent a diagnostic tap of the left pleural space and during this, his ETT filled with pus which is highly suspicious for a bronchopleural fistula. A pigtail drain was placed at the bedside by IR.? Cultures grew Proteus and Enterococcus. Since 10/08 CXR demonstrates:??Increasing Right lung infiltrates with loculated left pleural effusion..? Continue antibiotic therapy for Proteus/Enterococcus organisms which resulted from sputum culture..? Keep left pigtail to -20 mm Hg and monitor drainage which has been minimal to none. The pigtail catheter is patent and was flushed.? Repeat CT scan of chest yesterday showed a loculated left hydropneumothorax with inflamed pleural rind. A left pigtail thoracostomy tube is noted. 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 There is dense consolidation of the left upper lobe, with obstruction of the distal left mainstem bronchus. There is marked patchy contralateral right lung airspace disease,consistent with pneumonia. This CT scan was reviewed with Dr. Degroot. Vent requirements increased to 100% FiO2 from 70% yesterday. ? Drips:? Fentanyl, Propofol, Levophed, Vasopressin, Piperacilliin.? Leukocytosis, Lactate and creatinine levels all rising.? Overall, patient's prognosis is worsening a.? Physical Exam Vital Signs: Vital Signs: Last Vital Signs Temp 98.8 F 10/13/22 08:00 Pulse 88 10/13/22 09:00 Resp 24 H 10/13/22 09:00 BP 82/51 L 10/13/22 09:34 Pulse Ox 95 10/13/22 09:00 O2 Del Method 10/13/22 09:00 FiO2 100 10/13/22 09:00 BMI result Body Mass Index 33.7 Const: Other: intubated and sedated. Resp: Other: rhonchi on right with distant breath sounds on left Cardio: Other: irregularyly regular GI: Other: hypoactive bowel sounds : Other: Luna in place Extrem: Other: bilateral extremities with worsening of perfusion. Toes black. + 4 edema with lymphedema Procedures Date of Service Date of Service: 10/13/22 Arterial Line Size (Gauge): 20 Progress Note: A&P Assessment and plan (1) Respiratory failure: Status: Acute (2) Pneumonia: Status: Acute (3) Recurrent left pleural effusion: Status: Acute Plan Mr. Holder is a 71 yr old gentleman with Proteus/Enterococcus Pneumonia, locul ated left pleural effusion, and worsening ventilation and ARF..? 1.? Due to worsening prognosis, patient would not survive surgery at this time. Continue supportative care. All care and results have been discussed with Dr. Degroot. Please call us with any further questions or concern. Time Spent With Patient Time: Total time managing care of this patient today ____ minutes. Quality Stroke Does the patient have a stroke diagnosis?: No VTE Prior VTE?: No VTE Risk Level:: Medical - moderate - high VTE Device Contraindication: Treatment Not Indicated VTE Drug Contraindication: N/A - Med Ordered
[2022-10-13 09:56] LABS: Reflex Lactate? Lactic Acid Added
[2022-10-13 10:58] LABS: ~Lactic Acid-LAB USE ONLY 4.2 mmol/L (0.5-2.0)
[2022-10-13] MEDS: Esmolol HCl/NaCl Iso 2,500 MG/250 ML IV.SOLN 76.28 MG IVCONT (11:44)
[2022-10-13 11:53] LABS: ABG Refer to POC result
[2022-10-13 12:31] LABS: Reflex Lactate? 2 Y
[2022-10-13 13:31] LABS: ~Lactic Acid-LAB USE ONLY 5.2 mmol/L (0.5-2.0)
[2022-10-13] MEDS: Esmolol HCl/NaCl Iso 2,500 MG/250 ML IV.SOLN 82.15 MG IVCONT (14:52)
[2022-10-13 15:00] LABS: Glucose, Whole Blood 91 mg/dL (60-115)
[2022-10-13] MEDS: Esmolol HCl/NaCl Iso 2,500 MG/250 ML IV.SOLN 93.89 MG IVCONT (17:25)
[2022-10-13 17:27] LABS: Vancomycin Random 23.1 mcg/mL (15-20)
[2022-10-13 18:18] LABS: Glucose, Whole Blood 36 mg/dL (60-115)
[2022-10-13] MEDS: Dextrose 50 % 25 GM/50 ML SYRINGE IVPUSH (18:21)
--- NOTE | 2022-10-13 18:22 | PC.NURSE ---
Pt continuously requiring increased titration of Esmolol and Levophed (See MAR), made aware throughout, as per discussion with MD and HCP, the will be kepty on the current therapy with the current plan to not add any other vasopressors at this time. After in depth discussion and explanation by and this author regarding the pt's progress with the HCP, Demar, pt was changed from Full Code to DNR this afternoon. Pt unable to tolerate manual repositions d/t quick desats, tolerating the rotating bed and has been turned every 2 hrs and as needed. TF stopped at noon d/t high residuals, on hold at this time. Pt's UO continues to be decreasing, MD aware. Pt's hypoglycemic at 1800, 1 amp of Dextrose given as ordered. Safety maintained.
--- NOTE | 2022-10-13 18:40 | PM.CCPN ---
Subjective Subjective Date of Service: 10/13/22 Interval History: A 71-year-old male and alcoholic and continued smoker who presented with acute hypoxemic respiratory failure noted to have a large a empyema on the left side which was partially drained but it is multiloculated and this still is a a 10 Icelandic pigtail catheter in place but nothing is draining and has persistent air-fluid level with large volume of the residual empyema and of course most the left lung is atelectatic at this point and is good he is developing increasing in infiltrates in the right lung and has reached a level of instability where he still requires an FiO2 of 100% but ventilatory capacity is now diminishing very limited by peak airway pressures and diminished lung compliance so that his pCO2 all of a sudden was 106 with an acute respiratory acidosis pH of 7.06 and the ability to to ventilate him is now diminishing and he is a intractably hypotensive on multiple pressor agents and were failing to make maintain his oxygen saturations and he is developing now with diminishing urinary volume increasing BUN and creatinine Ms. Persistently encephalopathic he has not been on sedation for days now so he is evolving into a multi organ failure and my last discussion with thoracic surgery is that he is not at all a candidate for a video-assisted thoracoscopic procedure and I explained to his healthcare proxy the note that that at this point we have reached and intractable level that we can not really return from we have no ability to provide him source control and it would be inevitable of course that he will fail and the issue is he has developed a a severe acute cor pulmonale in a real predominant right heart failure problem which is why it is it is so difficult for him to respond to the positive inotropes At that point in discussing it with the rest of his family namely his the patient's sister did decided to go the route of a do not resuscitate but treatment is being continued but it is understood in of that there is nothing else to be added at this point and the patient will continue to developed a progressive in an intractable acidosis and hypoxia and of course will succumb to this illness Critical Care Time (minutes): 60 Physical Exam Vital Signs: Vital Signs: Last Vital Signs Temp 101.1 F H 10/13/22 18:00 Pulse 131 H 10/13/22 18:00 Resp 24 H 10/13/22 18:00 BP 70/64 L 10/13/22 18:00 Pulse Ox 94 10/13/22 18:00 O2 Del Method 10/13/22 18:00 FiO2 100 10/13/22 18:00 BMI result Body Mass Index 33.7 Remains unresponsive no response to deep pain Atrial fibrillation with progressively widening QRS intractable hypoxemia in in the low to mid 80s on an FiO2 of 100% maximum ventilatory support and the blood pressure at best in the end in 80s with mean arterial pressures in the mid to high 50s on combined pressor agents Diminishing bilateral carotid upstrokes and markedly dilated and hypokinetic right ventricle with LV systolic function being fairly well-preserved approximating 50-55% ejection fraction and nonfocal Abdomen soft no organomegaly Objective Data Labs CBC & Chem 7: 10/13/22 05:11 10/13/22 05:11 Labs: Laboratory Results - last 24 hr 10/12/22 10/12/22 10/12/22 18:06 18:50 20:55 WBC RBC Hgb Hct MCV MCH MCHC RDW Plt Count MPV Immature Gran % (Auto) Neut % (Auto) Lymph % (Auto) Summers % (Auto) Eos % (Auto) Baso % (Auto) Lymph # (Auto) Summers # (Auto) Eos # (Auto) Baso # (Auto) Abs Immat Gran (auto) Absolute Neuts (auto) Absolute Nucleated RBC Nucleated RBC % (auto) Smear Tech's Comments ESR aPTT Heparin Protocol > 200.0 H* D 46.4 L D O2 Saturation ABG pH at Pt Temp ABG pCO2 at Pt Temp ABG pO2 at Pt Temp ABG HCO3 ABG Base Excess (Actual) Sodium Potassium Chloride Carbon Dioxide Anion Gap BUN Creatinine Estim Creat Clear Calc Estimated GFR POC Glucose 199 H Random Glucose Lactic Acid Lactic Acid F/U @ 2Hr Lactic Acid F/U @ 4Hr Calcium Magnesium Total Bilirubin AST ALT Alkaline Phosphatase Total Protein Albumin Random Vancomycin 10/12/22 10/13/22 10/13/22 23:28 03:33 05:11 WBC 30.3 H* RBC 3.53 L Hgb 11.4 L Hct 37.9 L MCV 107.4 H MCH 32.3 MCHC 30.1 L RDW 18.9 H Plt Count 96 L MPV 12.6 H Immature Gran % (Auto) 3.8 H Neut % (Auto) 85.3 H Lymph % (Auto) 4.0 L Summers % (Auto) 6.4 Eos % (Auto) 0.0 Baso % (Auto) 0.5 Lymph # (Auto) 1.2 Summers # (Auto) 2.0 H Eos # (Auto) 0.0 Baso # (Auto) 0.2 Abs Immat Gran (auto) 1.16 H Absolute Neuts (auto) 25.9 H Absolute Nucleated RBC 0.180 H Nucleated RBC % (auto) 0.6 H Smear Tech's Comments VERIFIED ESR aPTT Heparin Protocol 49.9 L O2 Saturation ABG pH at Pt Temp ABG pCO2 at Pt Temp ABG pO2 at Pt Temp ABG HCO3 ABG Base Excess (Actual) Sodium Potassium Chloride Carbon Dioxide Anion Gap BUN Creatinine Estim Creat Clear Calc Estimated GFR POC Glucose 157 H Random Glucose Lactic Acid Lactic Acid F/U @ 2Hr Lactic Acid F/U @ 4Hr Calcium Magnesium Total Bilirubin AST ALT Alkaline Phosphatase Total Protein Albumin Random Vancomycin 10/13/22 10/13/22 10/13/22 05:11 05:11 05:15 WBC RBC Hgb Hct MCV MCH MCHC RDW Plt Count MPV Immature Gran % (Auto) Neut % (Auto) Lymph % (Auto) Summers % (Auto) Eos % (Auto) Baso % (Auto) Lymph # (Auto) Summers # (Auto) Eos # (Auto) Baso # (Auto) Abs Immat Gran (auto) Absolute Neuts (auto) Absolute Nucleated RBC Nucleated RBC % (auto) Smear Tech's Comments ESR 18 H aPTT Heparin Protocol O2 Saturation 92.0 ABG pH at Pt Temp 7.01 L* ABG pCO2 at Pt Temp 107 H* ABG pO2 at Pt Temp 83 ABG HCO3 27 H ABG Base Excess (Actual) -6.2 Sodium 143 Potassium 5.6 H D Chloride 104 Carbon Dioxide 26 Anion Gap 19 BUN 41 H Creatinine 2.33 H Estim Creat Clear Calc 34.0 Estimated GFR 28 POC Glucose Random Glucose 113 Lactic Acid Lactic Acid F/U @ 2Hr Lactic Acid F/U @ 4Hr Calcium 8.5 Magnesium 2.1 Total Bilirubin 1.8 H AST 161 H ALT 16 Alkaline Phosphatase 151 H Total Protein 5.8 L Albumin 3.3 L Random Vancomycin 10/13/22 10/13/22 10/13/22 06:00 07:49 07:49 WBC RBC Hgb Hct MCV MCH MCHC RDW Plt Count MPV Immature Gran % (Auto) Neut % (Auto) Lymph % (Auto) Summers % (Auto) Eos % (Auto) Baso % (Auto) Lymph # (Auto) Summers # (Auto) Eos # (Auto) Baso # (Auto) Abs Immat Gran (auto) Absolute Neuts (auto) Absolute Nucleated RBC Nucleated RBC % (auto) Smear Tech's Comments ESR aPTT Heparin Protocol 41.8 L O2 Saturation 92.0 ABG pH at Pt Temp 7.06 L* ABG pCO2 at Pt Temp 84 H* ABG pO2 at Pt Temp 77 L ABG HCO3 24 ABG Base Excess (Actual) -7.2 Sodium Potassium Chloride Carbon Dioxide Anion Gap BUN Creatinine Estim Creat Clear Calc Estimated GFR POC Glucose Random Glucose Lactic Acid 3.4 H* Lactic Acid F/U @ 2Hr Lactic Acid F/U @ 4Hr Calcium Magnesium Total Bilirubin AST ALT Alkaline Phosphatase Total Protein Albumin Random Vancomycin 10/13/22 10/13/22 10/13/22 07:58 10:21 12:09 WBC RBC Hgb Hct MCV MCH MCHC RDW Plt Count MPV Immature Gran % (Auto) Neut % (Auto) Lymph % (Auto) Summers % (Auto) Eos % (Auto) Baso % (Auto) Lymph # (Auto) Summers # (Auto) Eos # (Auto) Baso # (Auto) Abs Immat Gran (auto) Absolute Neuts (auto) Absolute Nucleated RBC Nucleated RBC % (auto) Smear Tech's Comments ESR aPTT Heparin Protocol O2 Saturation 97.0 ABG pH at Pt Temp 7.12 L* ABG pCO2 at Pt Temp 77 H* ABG pO2 at Pt Temp 101 ABG HCO3 25 ABG Base Excess (Actual) -5.1 Sodium Potassium Chloride Carbon Dioxide Anion Gap BUN Creatinine Estim Creat Clear Calc Estimated GFR POC Glucose 91 Random Glucose Lactic Acid Lactic Acid F/U @ 2Hr 4.2 H* Lactic Acid F/U @ 4Hr Calcium Magnesium Total Bilirubin AST ALT Alkaline Phosphatase Total Protein Albumin Random Vancomycin 10/13/22 10/13/22 10/13/22 13:03 17:01 18:14 WBC RBC Hgb Hct MCV MCH MCHC RDW Plt Count MPV Immature Gran % (Auto) Neut % (Auto) Lymph % (Auto) Summers % (Auto) Eos % (Auto) Baso % (Auto) Lymph # (Auto) Summers # (Auto) Eos # (Auto) Baso # (Auto) Abs Immat Gran (auto) Absolute Neuts (auto) Absolute Nucleated RBC Nucleated RBC % (auto) Smear Tech's Comments ESR aPTT Heparin Protocol O2 Saturation ABG pH at Pt Temp ABG pCO2 at Pt Temp ABG pO2 at Pt Temp ABG HCO3 ABG Base Excess (Actual) Sodium Potassium Chloride Carbon Dioxide Anion Gap BUN Creatinine Estim Creat Clear Calc Estimated GFR POC Glucose 36 L* Random Glucose Lactic Acid Lactic Acid F/U @ 2Hr Lactic Acid F/U @ 4Hr 5.2 H* Calcium Magnesium Total Bilirubin AST ALT Alkaline Phosphatase Total Protein Albumin Random Vancomycin 23.1 H Microbiology Microbiology Results: Microbiology 10/13/22 08:26 Sputum - Suctioned Gram Stain - Final 10/13/22 06:34 Blood - Venous Blood Culture - Final 10/08/22 16:18 Pleura Gram Stain - Final 10/08/22 16:18 Pleura Anaerobic Culture - Preliminary Culture in progress. 10/08/22 16:18 Pleura Body Fluid Culture - Final Proteus mirabilis Enterococcus faecalis 10/09/22 09:00 Bronchial Washings Gram Stain - Final 10/09/22 09:00 Bronchial Washings Routine Culture - Final Proteus mirabilis Enterococcus faecalis 10/08/22 08:22 Sputum - Suctioned Gram Stain - Final 10/08/22 08:22 Sputum - Suctioned Sputum Culture - Final Proteus mirabilis Enterococcus faecalis 10/08/22 14:12 Sputum - Suctioned Gram Stain - Final 10/08/22 14:12 Sputum - Suctioned Sputum Culture - Final Proteus mirabilis Enterococcus faecalis 10/06/22 18:39 Blood - Venous Blood Culture - Final No growth after 5 days. 10/06/22 18:41 Blood - Venous Blood Culture - Final No growth after 5 days. 10/07/22 01:14 Sputum - Induced Gram Stain - Final 10/07/22 01:14 Sputum - Induced Sputum Culture - Final Proteus mirabilis Progress Note: A&P Assessment and plan (1) Cor pulmonale, acute: Status: Acute (2) Chronic renal failure, stage 3 (moderate): Status: Acute (3) Acute renal failure: Status: Acute (4) Empyema of left pleural space: Status: Acute (5) Respiratory failure: Status: Acute (6) Pneumonia: Status: Acute (7) Recurrent left pleural effusion: Status: Acute (8) Permanent atrial fibrillation: Status: Acute (9) Diabetes mellitus: Status: Acute (10) Weakness: Status: Acute (11) Productive cough: Status: Acute (12) Tachycardia: Status: Acute (13) Shortness of breath: Status: Acute (14) Situational depression: Status: Acute (15) Colon cancer screening: Status: Acute (16) Chronic atrial fibrillation: Status: Acute (17) Hip pain, left: Status: Acute (18) Asthma: Status: Acute (19) Anemia: Status: Acute (20) Colonoscopy refused: Status: Acute (21) Sacroiliac joint dysfunction of left side: Status: Acute (22) Pleural effusion, left: Status: Acute (23) Frequency of micturition: Status: Acute (24) SOB (shortness of breath): Status: Acute (25) CVA (cerebral vascular accident): Status: Acute (26) Tobacco abuse: Status: Acute (27) Type 2 diabetes mellitus with hyperglycemia: Status: Acute (28) Hypercholesterolemia: Status: Acute (29) Overweight (BMI 25.0-29.9): Status: Acute (30) BPH (benign prostatic hyperplasia): Status: Acute (31) Hypertension: Status: Acute (32) Osteoarthritis: Status: Acute Plan So no further ago aggressiveness as I explained to the healthcare proxy and he agrees were not going to be draw and any more blood work were already on on maximum support this no expectation of recovery but will leave the support mechanism in place and he will progress to his a natural and Quality Stroke Does the patient have a stroke diagnosis?: No VTE Prior VTE?: No VTE Risk Level:: Medical - moderate - high VTE Device Contraindication: Treatment Not Indicated VTE Drug Contraindication: N/A - Med Ordered
[2022-10-13 19:09] LABS: Glucose, Whole Blood 86 mg/dL (60-115)
[2022-10-13] MEDS: Esmolol HCl/NaCl Iso 2,500 MG/250 ML IV.SOLN 111.49 MG IVCONT (19:58)
[2022-10-13] MEDS: Esmolol HCl/NaCl Iso 2,500 MG/250 ML IV.SOLN 117.36 MG IVCONT (22:06)
[2022-10-13 23:42] LABS: Glucose, Whole Blood 88 mg/dL (60-115)
[2022-10-14] VITALS (29 sets, daily range): BP systolic 72–121; BP diastolic 34–64; PULSE 87–146; RESP 23–24; TEMP 34.7–38.6; O2SAT 66–92; BMI 34.7
[2022-10-14] MEDS: 0.9 % Sodium Chloride Flush 3 ML SYRINGE IVFLUSH ×3 (00:04→14:35)
[2022-10-14] MEDS: Esmolol HCl/NaCl Iso 2,500 MG/250 ML IV.SOLN 117.36 MG IVCONT ×9 (00:14→16:28)
[2022-10-14] MEDS: Ampicillin Sodium/Sulbactam Na 1.5 GM in 0.9 % Sodium Chloride 100 ML IV ×4 (05:34→23:09)
[2022-10-14 05:53] LABS: Glucose, Whole Blood 51 mg/dL (60-115)
[2022-10-14] MEDS: Dextrose 50 % 25 GM/50 ML SYRINGE IVPUSH ×6 (05:55→23:57)
[2022-10-14 06:32] LABS: Glucose, Whole Blood 115 mg/dL (60-115)
[2022-10-14] MEDS: Chlorhexidine Gluc Oral Rinse 15 ML MOUTHWASH BUCCAL ×3 (08:36→20:20)
[2022-10-14] MEDS: Lactulose 20 GM/30 ML SOLUTION G-TUBE ×2 (08:36→20:20)
--- NOTE | 2022-10-14 09:47 | MHC.CLN ---
F/U PT REMAINS INTUBATED AND SEDATED TF ON HOLD R/T HIGH GRVS PER NSG NOTED PT NOW DNR IF TF TO RESTART RECOMMEND PROMOTE AT MAX GOAL RATE 60ML/HR PROVIDES 1440KCALS (1877KCALS WITH SEDATION; 23KCALS/KG), 90G PROTEIN (1.1G/KG), 1208ML FREE WATER FROM FORMULA MONITOR TOLERANCE, RESIDUALS AND LYTES FOLLOWING WITH TEAM
[2022-10-14 11:52] LABS: Glucose, Whole Blood < 10 mg/dL (60-115)
[2022-10-14 12:19] LABS: Glucose, Whole Blood 103 mg/dL (60-115)
[2022-10-14 12:46] LABS: Glucose, Whole Blood 120 mg/dL (60-115)
--- NOTE | 2022-10-14 14:02 | PC.NURSE ---
Assumed care at 0700- Patient unresponsive to noxious stimuli, continues on mechanical ventilation and vasopressor support. Bilateral upper and lower extremities mottled/cyanotic. BLE pulses absent, BUE faint- obtained via dopplar. 1200 POC performed on finger- Result <10mg/dL. Repeat test exhibiting same result. notified, 25 mg 50% Dextrose IVP given stat at 1151. Repeat POC performed 15 minutes later on finger, yielding result <10 mg/dL. Repeat test obtained from earlobe- 103 mg/dL. notoified. CCT's notified to obtain POC on earlobe. No new orders at this time, MARISOL.
--- NOTE | 2022-10-14 14:12 | MHC.CM.PN ---
Patient remains intubated/vented in ICU. Patient is from home with [employer]. Patient may need physical therapy eval for home safety when medically stable. Continue to monitor for d/c needs.
--- NOTE | 2022-10-14 16:52 | PM.CCPN ---
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 which was drained at least partially because it is multiloculated this is with a pigtail that was put in under CT guidance but this still significant volume and an air-fluid level and he was already rejected for a video-assisted mechanism which would have been the only way to completely clean out the left lung and he had become already intractably hypoxic requiring 100% with oxygen saturations in the 70s at best he is on maximum pressors between Levophed and vasopressin but blood pressures means are in the mid 50s at best remains in of course in his atrial fibrillation and in discussion with the family knowing that it is impossible to perform any source control and that the he has got multi organ failure progressive metabolic and respiratory acidosis because of inability to ventilate and the big issue of course is the the worsening disease in his right lung which would preclude a doing the left lung procedure and so he was changed to DNR status but to leave him on his treatment and support and with the expectation he will achieve is natural and but nobody wanted To take away his support today he has gone into a wide complex tachycardia presumably of of ventricular origin and then even had episodes of ventricular flutter with markedly elevated heart rates certainly exceeding 200-220 spontaneously breaking and actually broke back into a sinus mechanism but the again he is just slowly progressively deteriorating and the clearly just a matter very short time Critical Care Time (minutes): 30 Physical Exam Vital Signs: Vital Signs: Last Vital Signs Temp 98.1 F 10/14/22 16:00 Pulse 105 H 10/14/22 16:00 Resp 24 H 10/14/22 16:00 BP 72/34 L 10/14/22 16:00 Pulse Ox 75 L 10/14/22 16:00 O2 Del Method 10/14/22 16:00 FiO2 100 10/14/22 16:00 BMI result Body Mass Index 34.7 Objective Data Labs 10/13/22 05:11 10/13/22 05:11 Labs: Laboratory Results - last 24 hr 10/13/22 10/13/22 10/13/22 17:01 18:14 19:04 POC Glucose 36 L* 86 Random Vancomycin 23.1 H 10/13/22 10/14/22 10/14/22 23:38 05:42 06:29 POC Glucose 88 51 L* 115 Random Vancomycin 10/14/22 10/14/22 10/14/22 11:48 12:10 12:43 POC Glucose < 10 L* 103 120 H Random Vancomycin Microbiology Microbiology Results: Microbiology 10/08/22 16:18 Pleura Gram Stain - Final 10/08/22 16:18 Pleura Anaerobic Culture - Final Bacteroides fragilis 10/08/22 16:18 Pleura Body Fluid Culture - Final Proteus mirabilis Enterococcus faecalis 10/13/22 08:26 Sputum - Suctioned Gram Stain - Final 10/13/22 08:26 Sputum - Suctioned Sputum Culture - Preliminary Culture in progress. 10/13/22 07:49 Blood - Venous Blood Culture - Preliminary No growth after 24 hours. 10/13/22 06:34 Blood - Venous Blood Culture - Final 10/09/22 09:00 Bronchial Washings Gram Stain - Final 10/09/22 09:00 Bronchial Washings Routine Culture - Final Proteus mirabilis Enterococcus faecalis 10/08/22 08:22 Sputum - Suctioned Gram Stain - Final 10/08/22 08:22 Sputum - Suctioned Sputum Culture - Final Proteus mirabilis Enterococcus faecalis 10/08/22 14:12 Sputum - Suctioned Gram Stain - Final 10/08/22 14:12 Sputum - Suctioned Sputum Culture - Final Proteus mirabilis Enterococcus faecalis 10/06/22 18:39 Blood - Venous Blood Culture - Final No growth after 5 days. 10/06/22 18:41 Blood - Venous Blood Culture - Final No growth after 5 days. 10/07/22 01:14 Sputum - Induced Gram Stain - Final 10/07/22 01:14 Sputum - Induced Sputum Culture - Final Proteus mirabilis Quality Stroke Does the patient have a stroke diagnosis?: No VTE Prior VTE?: No VTE Risk Level:: Medical - moderate - high VTE Device Contraindication: Treatment Not Indicated VTE Drug Contraindication: N/A - Med Ordered
[2022-10-14 17:52] LABS: Glucose, Whole Blood 22 mg/dL (60-115)
[2022-10-14 18:38] LABS: Glucose, Whole Blood 40 mg/dL (60-115)
--- NOTE | 2022-10-14 19:13 | PC.NURSE ---
Addendum entered by Sammi Rebolledo RN 10/14/22 19:19: [facility] CALLED BACK AT 1915 TO OBTAIN MORE INFORMATION - AT THIS TIME THEY ARE KEEPING THE CASE OPEN AND MAY REACH OUT FOR MORE QUESTIONS AGAIN, IF PATIENT EXPIRES PLEASE CALL AND NOTIFY [facility] WITH CASE #[id number] AND PER SURESH PLEASE DO NOT MENTION THEY WERE CONTACTED PER DEIRDRE Original Note: [facility] CONTACTED AT 1902, SPOKE WITH DARREN CURRENTLY TISSUE IS DENIED, BUT SOMEONE FROM [facility] MAY REACH OUT TO OBTAIN MORE INFORMATION FOR SCREENING OF ORGANS IF PATIENT EXPIRES BEFORE THEN PLEASE CALL THEM BACK WITH [facility] CASE #[id number]
[2022-10-14 19:53] LABS: Glucose, Whole Blood 69 mg/dL (60-115)
[2022-10-14 19:53] LABS: Glucose, Whole Blood 104 mg/dL (60-115)
[2022-10-14 21:38] LABS: Glucose, Whole Blood 83 mg/dL (60-115)
[2022-10-14 23:54] LABS: Glucose, Whole Blood 35 mg/dL (60-115)
[2022-10-15] VITALS: BP 110/38; PULSE 86; TEMP 34.7
[2022-10-15] MEDS: 0.9 % Sodium Chloride Flush 3 ML SYRINGE IVFLUSH (00:10)
[2022-10-15 00:21] LABS: Glucose, Whole Blood 73 mg/dL (60-115)
[2022-10-15 00:53] VITALS: BP 101/42; PULSE 82; RESP 24; TEMP 36.4; O2SAT 72
[2022-10-15 02:00] VITALS: BP 90/45; PULSE 73; RESP 16; TEMP 36.3
--- NOTE | 2022-10-15 02:46 | PM.EVENT ---
Event Note Date of Service: 10/15/22 Event Note: Patient with known DNR code status no escaltion of care, became more hypotensive and bradycardic overnight. Patient bradycardic,? and eventually asystole. On my exam- no response to verbal or physical stimuli, no spontaneous respiration, absent heart sounds, pupils are fixed and dilated, no corneal or gag reflex. Official time of 0237. Attending Dr Overton notified. Next Demar Lin [phone], notified via phone. Not [employer] candidate.? Nursing notified organ donation.? Time Spent With Patient Time: Total time managing care of this patient today _0___ minutes.
--- NOTE | 2022-10-15 02:57 | PC.NURSE ---
Pt asystole at 0237, pronounced by KIRSTEN Lepe. [facility] notified, pt declined. Case #[id number]. HCP notified. home - [facility] in [place]. Post mortem care completed, belongings sent with pt to [facility].
--- NOTE | 2022-10-15 03:17 | P.DN_ITS ---
Discharge Sum: Prov Provider Primary care physician: Willa Rubin MD Admitting clinician: Rolf Vaughn Attending physician on admission: Rolf Vaughn Consults: 10/06/22 21:55 Consult to Thoracic Surgery Routine Consulting Provider: Angélica Jeronimo Reason for consultation: loculated effusion 10/07/22 04:53 Consult to Critical Care Stat Consulting Provider: Jonathan Quintanilla Reason for consultation: Dyspnea 10/08/22 13:52 Consult to Pulmonology Routine Consulting Provider: Jorge Hanson Reason for consultation: Bronchopleural fistula Has provider been notified: Yes Pronouncing clinician: Roberth Gregory Discharge Sum: Diag PCOD Cause of : Acute respiratory failure Contributing Factors (1) Cor pulmonale, acute: (2) Chronic renal failure, stage 3 (moderate): (3) Acute renal failure: (4) Empyema of left pleural space: (5) Respiratory failure: (6) Pneumonia: (7) Recurrent left pleural effusion: (8) Permanent atrial fibrillation: (9) Diabetes mellitus: (10) Weakness: (11) Productive cough: (12) Tachycardia: (13) Shortness of breath: (14) Situational depression: (15) Colon cancer screening: (16) Chronic atrial fibrillation: (17) Hip pain, left: (18) Asthma: (19) Anemia: (20) Colonoscopy refused: (21) Sacroiliac joint dysfunction of left side: (22) Pleural effusion, left: (23) Frequency of micturition: (24) SOB (shortness of breath): (25) CVA (cerebral vascular accident): (26) Tobacco abuse: (27) Type 2 diabetes mellitus with hyperglycemia: (28) Hypercholesterolemia: (29) Overweight (BMI 25.0-29.9): (30) BPH (benign prostatic hyperplasia): (31) Hypertension: (32) Osteoarthritis: Discharge Sum: Summary Date and Time Date of admission: 10/06/22 20:40 Date of : 10/15/22 Time of : 02:37 Summary Details: This is a 71-year-old male with pertinent history of owl-xinxkka-qcruayzee diabetes mellitus, mixed hyperlipidemia, essential hypertension, BPH, permanent atrial fibrillation on Eliquis, history of CVA who presents to the emergency department for evaluation of dyspnea on 10/06/22 and admitted to hospital medicine for pneumonia. On 10/07/22 had to be transfer? to ICU with acute respiratory failure secondary to left-sided pneumonia with large loculated pleural effusion, possible/likely empyema.? 10/08/22 The patient was taken to CT scan for planned thoracentesis and chest tube placement.? On turning the patient into the right lateral decubitus position, a cupful of very foul-smelling, acevedo-cruz pus poured out of the patient's endotracheal tube.? The patient became hemod unstable.? The procedure was abandoned and the patient brought back to the ICU.? Vasopressin was added.? He stabilized at a Levophed dose of 0.35 mcg and vasopressin 0.04 units. That afternoon, Dr. Ambrocio placed a 10Fr pigtail into the empyema at the bedside via US.? About half a cup of the acevedo/cruz pus was obtained and sent to Micro lab.? The catheter was placed to wall suction.? Post-procedure chest x-ray shows much better expansion of the left lung with significant drainage of the pleural fluid.? Right lung infiltrates appeared increased. During hospitalization he continue to deteriorate with ventilation and oxygenation problems worsening. Family meeting held on 10/13/22 and DNR with no scalation decision reached with HCP Demar.? ?Official time of 236.? Attending Dr Overton Additional Data Confirmation of as documented by pronouncing clinician: no pulse, no respirations, no heart sounds and pupils fixed and dilated Family: contacted Attending/PCP notified?: Yes Attending physician: Sailaja Overton MD Was code activated?: No Autopsy requested?: No crime scene examiner notified?: No Organ bank notified?: Yes Advance directives: Yes Hospice patient?: No
[2022-10-16 08:16] LABS: Glucose, Whole Blood 35 mg/dL (60-115)
[2022-10-16 08:16] LABS: Glucose, Whole Blood < 10 mg/dL (60-115)
[2022-10-16 08:16] LABS: Glucose, Whole Blood < 10 mg/dL (60-115)
== END 2022-10-15 03:05 | disposition expired | DRG 853 ==
LOC: HO.ED 20:28 → HO.EDOVER 22:06 → HO.S3 10-07 03:28 → HO.EDOVER 10-07 03:36 → HO.ICU 10-07 07:23
PROVIDERS: Anesthesiology; Nurse Practitioner Family; Physician Assistant; Physician Assistant Medical; Radiology Diagnostic Radiology; Admitting Provider Student in an Organized Health Care Education/Training Program; Emergency Provider Internal Medicine; PCP Internal Medicine; Visit Provider Internal Medicine Cardiovascular Disease
DX: A41.9 Sepsis, unspecified organism (principal); J18.9 Pneumonia, unspecified organism; J86.0 Pyothorax with fistula; J96.01 Acute respiratory failure with hypoxia; J96.02 Acute respiratory failure with hypercapnia; R65.21 Severe sepsis with septic shock; I48.21 Permanent atrial fibrillation; E87.20 Acidosis, unspecified; J91.8 Pleural effusion in other conditions classified elsewhere; I87.313 Chronic venous hypertension (idiopathic) with ulcer of bilateral lower extremity; L97.929 Non-pressure chronic ulcer of unspecified part of left lower leg with unspecified severity; L97.919 Non-pressure chronic ulcer of unspecified part of right lower leg with unspecified severity; I13.0 Hypertensive heart and chronic kidney disease with heart failure and stage 1 through stage 4 chronic kidney disease, or unspecified chronic kidney disease; N17.9 Acute kidney failure, unspecified; N40.0 Benign prostatic hyperplasia without lower urinary tract symptoms; E78.2 Mixed hyperlipidemia; E87.6 Hypokalemia; R91.1 Solitary pulmonary nodule; E11.22 Type 2 diabetes mellitus with diabetic chronic kidney disease; N18.30 Chronic kidney disease, stage 3 unspecified; I50.810 Right heart failure, unspecified; I27.81 Cor pulmonale (chronic); T38.3X5A Adverse effect of insulin and oral hypoglycemic [antidiabetic] drugs, initial encounter; Z20.822 Contact with and (suspected) exposure to COVID-19; Z86.73 Personal history of transient ischemic attack (TIA), and cerebral infarction without residual deficits; Z87.891 Personal history of nicotine dependence; Z79.84 Long term (current) use of oral hypoglycemic drugs; Z79.01 Long term (current) use of anticoagulants; Z79.899 Other long term (current) drug therapy
CPT/HCPCS: 0241U; 32557; 36415; 36600; 71045; 71250; 74177; 80048; 80053; 80202; 81001; 82040; 82803; 82947; 83605; 83735; 83880; 84100; 84145; 85007; 85025; 85027; 85610; 85652; 85730; 86140; 87040; 87070; 87073; 87076; 87077; 87186; 87205; 88112; 88305; 92950; 93005; 93308; 93925; 93970; 94002; 94003; 94640; 94660; 94799; 99285; C1729; C1758; J0295; J0696; J1170; J1940; J2185; J2270; J2543; J2765; J2930; J3010; J3370; J3430; J3475; P9047; Q9967